=== PATIENT | male | born 1960 | race Hispanic/Latino ===

== ENCOUNTER 2017-02-03 10:28 | Inpatient (IN) | payer OTHER ==
[2017-02-03 10:39] VITALS: BMI 55.2
--- NOTE | 2017-02-03 10:45 | ED PDOC ---
Arrival/HPI - General Chief Complaint: Weakness/Neurological Deficit Time Seen by Provider: 02/03/17 10:32 Past Medical History - Infectious Disease Hx of Infectious Diseases: None - Cardiac Hx Cardiac Disorders: Yes Hx Hypertension: Yes Other/Comment: PE in the past - Pulmonary Hx Respiratory Disorders: Yes Hx Sleep Apnea: Yes - Neurological Hx Neurological Disorder: No - HEENT Hx HEENT Disorder: Yes Other/Comment: glasses - Renal Hx Renal Disorder: No - Endocrine/Metabolic Hx Endocrine Disorders: Yes Hx Diabetes Mellitus Type 1: Yes - Hematological/Oncological Hx Blood Disorders: No - Integumentary Hx Dermatological Disorder: No - Musculoskeletal/Rheumatological Hx Musculoskeletal Disorders: Yes Hx Back Pain: Yes - Gastrointestinal Hx Gastrointestinal Disorders: No - Genitourinary/Gynecological Hx Genitourinary Disorders: No - Psychiatric Hx Psychophysiologic Disorder: No Hx Substance Use: No - Surgical History Other/Comment: Miah OVALLES in 11/2016 - Anesthesia Hx Anesthesia: Yes Hx Anesthesia Reactions: No Family/Social History Smoking Status: Never Smoked Hx Alcohol Use: No Hx Substance Use: No Allergies/Home Meds Allergies/Adverse Reactions: Allergies lisinopril Allergy (Verified 02/03/17 10:39) ANAPHYLAXIS Disposition/Present on Arrival - Present on Arrival History of DVT/PE: Yes History of Uncontrolled Diabetes: No Urinary Catheter: No History of Decub. Ulcer: No History Surgical Site Infection Following: Orthopedic Procedures, None - Disposition
[2017-02-03] MEDS ORDERED: Piperacill/Tazo 4.5gm in NS 4.5 GM/100 ML BAG IVPB STA (10:51)
[2017-02-03] MEDS ORDERED: Vancomycin 1gm in NS 250ml 1 GM/250 ML BAG IVPB STA ×2 (10:51→11:02)
[2017-02-03] MEDS ORDERED: Piperacillin/Tazobact 3.375 gm 100 ML IVPB STA (11:02)
--- NOTE | 2017-02-03 11:26 | RAD ---
HISTORY: Sepsis Patient COMPARISON: No prior. FINDINGS: LUNGS: No active pulmonary disease. PLEURA: No significant pleural effusion identified, no pneumothorax apparent. CARDIOVASCULAR: Normal. OSSEOUS STRUCTURES: No significant abnormalities. VISUALIZED UPPER ABDOMEN: Normal. OTHER FINDINGS: None. IMPRESSION: No active disease.
[2017-02-03 11:44] LABS: BASO # 0.02 K/mm3 (0.0-2.0); BASO % 0.3 % (0.0-3.0); EOS # 0.1 (0.0-0.7); EOS % 1.6 % (1.5-5.0); GRAN # 5.41 (1.4-6.5); GRAN % 72.3 % (50.0-68.0); HEMOGLOBIN 10.7 g/dL (14.0-18.0); LYMPH # 1.4 (1.2-3.4); LYMPH % 18.3 % (22.0-35.0); MEAN CELL VOLUME 83.8 fl (80.0-105.0); MEAN CORPUSCULAR HEMOGLOBIN 27.4 pg (25.0-35.0); MEAN CORPUSCULAR HGB CONC 32.7 g/dl (31.0-37.0); MONO # 0.6 (0.1-0.6); MONO % 7.5 % (1.0-6.0); RBC 3.9 10^6/uL (3.5-6.1); RED CELL DISTRIBUTION WIDTH 13.7 % (11.5-14.5); WHITE BLOOD COUNT 7.5 10^3/ul (4.5-11.0)
[2017-02-03 11:46] LABS: VENOUS BLOOD GAS BASE EXCESS -5.7 mmol/L (0.0-2.0); VENOUS BLOOD GAS PO2 40 mm/Hg (30-55); VENOUS BLOOD PH 7.26 (7.32-7.43)
[2017-02-03] MEDS ORDERED: Morphine 4 mg/ml ISec IVP STA (11:52)
[2017-02-03] MEDS ORDERED: Morphine 4 mg/ml ISec ONE (11:53)
[2017-02-03] MEDS ORDERED: INSULIN ASPART 25 UNIT SQ PRN ×2 (12:00→12:12)
[2017-02-03 12:06] LABS: INR 3.14 (0.93-1.08); PROTHROMBIN TIME 35.3 SECONDS (9.4-12.5)
[2017-02-03 12:07] LABS: ALB/GLOB RATIO 0.8 (1.1-1.8); ALBUMIN 3.1 g/dL (3.0-4.8); CALCIUM 8.9 mg/dL (8.4-10.5); MAGNESIUM 1.8 mg/dL (1.7-2.2); PARTIAL THROMBOPLASTIN TIME 40.7 Seconds (25.1-36.5)
[2017-02-03 12:09] LABS: TROPONIN I 0.02 ng/mL
--- NOTE | 2017-02-03 12:12 | ED PDOC ---
Arrival/HPI - General Chief Complaint: Weakness/Neurological Deficit Time Seen by Provider: 02/03/17 10:32 Historian: Patient - History of Present Illness Narrative History of Present Illness (Text): 02/03/17 13:30 56-year-old male with a history of diabetes or hypertension and obesity with left lower leg BKA presents today with generalized weakness/fatigue and pain and infection to the left BKA stump. Patient states 7 days ago while on a cruise he had slipped and fell and hit the stump on the ground. Patient states he had some pain at that time but 2-3 days later without any trauma this stump burst open and purulent discharge was released. Patient states he was having increased pain swelling and redness to the area. Patient states he was seen by the cruise ship doctor and was started on 4 days of IV antibiotics. Patient is unsure which medications he was being given. Patient states today he got off of the cruise ship and felt very weak as if his legs were going to give out on him. pt denies fever/chills. no cp or sob. no abdominal pain. no n/v. c/o throbbing pain to the left bka site. no other complaints. Past Medical History - Provider Review Nursing Documentation Reviewed: Yes - Travel History Have you recently traveled outside [place] w/in the past 3 mons?: No - Infectious Disease Hx of Infectious Diseases: None - Cardiac Hx Cardiac Disorders: Yes Hx Hypertension: Yes Other/Comment: PE in the past - Pulmonary Hx Respiratory Disorders: Yes Hx Sleep Apnea: Yes - Neurological Hx Neurological Disorder: No - HEENT Hx HEENT Disorder: Yes Other/Comment: glasses - Renal Hx Renal Disorder: No - Endocrine/Metabolic Hx Endocrine Disorders: Yes Hx Diabetes Mellitus Type 1: Yes - Hematological/Oncological Hx Blood Disorders: No - Integumentary Hx Dermatological Disorder: No - Musculoskeletal/Rheumatological Hx Musculoskeletal Disorders: Yes Hx Back Pain: Yes - Gastrointestinal Hx Gastrointestinal Disorders: No - Genitourinary/Gynecological Hx Genitourinary Disorders: No - Psychiatric Hx Psychophysiologic Disorder: No Hx Substance Use: No - Surgical History Other/Comment: Miah OVALLES in 11/2016 - Anesthesia Hx Anesthesia: Yes Hx Anesthesia Reactions: No Family/Social History - Physician Review Nursing Documentation Reviewed: Yes Family/Social History: Unknown Family HX Smoking Status: Never Smoked Hx Alcohol Use: No Hx Substance Use: No Allergies/Home Meds Allergies/Adverse Reactions: Allergies lisinopril Allergy (Verified 02/03/17 10:39) ANAPHYLAXIS Home Medications: Home Meds Medication Instructions Recorded Confirmed Ferrous Gluconate [Fergon] 324 mg PO DAILY 02/03/17 02/03/17 Hydrochlorothiazide [Microzide] 12.5 mg PO BID 02/03/17 02/03/17 Insulin Aspart [Novolog Flexpen] 25 units SQ TID PRN 02/03/17 02/03/17 Insulin Glargine, Recombina 38 units SQ ACHS 02/03/17 02/03/17 [Lantus] Losartan [Cozaar] 100 mg PO DAILY 02/03/17 02/03/17 Metoprolol Succinate [Toprol XL] 25 mg PO DAILY 02/03/17 02/03/17 Omeprazole [Omeprazole] 20 mg PO DAILY 02/03/17 02/03/17 Pravastatin Sodium [Pravastatin 80 g PO DAILY 02/03/17 02/03/17 Sodium] Tamsulosin [Flomax] 1 tab PO DAILY 02/03/17 02/03/17 Venlafaxine [Effexor XR] 175 mg PO DAILY 02/03/17 02/03/17 Warfarin [Coumadin] 15 mg PO DAILY 02/03/17 02/03/17 Review of Systems - Review of Systems Constitutional: Fatigue. absent: Fevers Respiratory: absent: SOB, Cough Cardiovascular: absent: Chest Pain, Palpitations Gastrointestinal: absent: Abdominal Pain, Nausea, Vomiting Musculoskeletal: Arthralgias. absent: Back Pain, Neck Pain Skin: Cellulitis Neurological: absent: Headache, Dizziness Psychiatric: absent: Anxiety, Depression Physical Exam Vital Signs Reviewed: Yes Vital Signs Temp Pulse Resp BP Pulse Ox 02/03/17 12:28 61 18 145/69 97 02/03/17 11:29 64 18 147/65 95 02/03/17 10:28 97.9 F 72 18 149/70 96 Temperature: Afebrile Blood Pressure: Normal Pulse: Regular Respiratory Rate: Normal Appearance: Positive for: Well-Appearing, Non-Toxic, Comfortable Pain Distress: None Mental Status: Positive for: Alert and Oriented X 3 Finger Stick Blood Glucose: 220 - Systems Exam Head: Present: Atraumatic Neck: Present: Normal Range of Motion Respiratory/Chest: Present: Clear to Auscultation Cardiovascular: Present: Regular Rate and Rhythm Abdomen: No: Tenderness, Distention, Rebound, Guarding Back: Present: Normal Inspection Lower Extremity: Present: Swelling, Erythema (Left leg; + edema, BKA with erythema, warmth, swelling and two open wounds with discharge noted; + tenderness. right leg; + edema. ) Neurological: Present: GCS=15, Speech Normal Skin: Present: Warm, Dry, Normal Color Psychiatric: Present: Alert, Oriented x 3 Medical Decision Making ED Course and Treatment: 02/03/17 13:43 56-year-old male with a left leg BKA on 10/13/16. Now with wound infection. Complaining of generalized fatigue CBC within normal limits CMP BUN 72 creatinine 3.0 Chest x-ray within normal limits X-rays of the left knee: + bka; lactate; 1.9 trop; 0.02 ekg; normal sinus rhythm at [address] elevations QTC 430 vancomycin and zosyn ordered IV. case discussed with dr. tarango; accepts admission. with dr. chavez and Dr. Brownlee consult. pt was seen and evaluated by dr. chavez at beside; he would like left knee xray to evaluate stump. pt was seen by dr. brownlee at bedside. all results discussed with patient and family in depth. pt with DM, with left leg BKA infection with cellulitis. w impression; cellulitis, wound infection, renal insufficiency admit to med/surg - Lab Interpretations Lab Results: 02/03/17 11:15 02/03/17 11:15 Lab Results 02/03/17 11:15: Sodium 137, Chloride 106, Potassium 4.7, Carbon Dioxide 23, Anion Gap 14, BUN 74 H, Creatinine 3.0 H, Est GFR ( Amer) 26, Est GFR ( Non-Af Amer) 22, Random Glucose 207 H, Calcium 8.9, Phosphorus 4.4, Magnesium 1.8, Total Bilirubin 0.4, AST 35, ALT 39, Alkaline Phosphatase 248 H, Lactate Dehydrogenase 628, Total Creatine Kinase 89, Troponin I 0.02, Total Protein 7.2 , Albumin 3.1, Globulin 4.1, Albumin/Globulin Ratio 0.8 L 02/03/17 11:15: pO2 40, VBG pH 7.26 L, VBG pCO2 48.0, VBG HCO3 21.5, VBG Total CO2 23.0, VBG O2 Sat (Calc) 71.0 H, VBG Base Excess -5.7 L, VBG Potassium 4.8, Sodium 136.0, Chloride 107.0, Glucose 216 H, Lactate 1.9, FiO2 21.0, Venous Blood Potassium 4.8 02/03/17 11:15: PT 35.3 H, INR 3.14 H, APTT 40.7 H 02/03/17 11:15: WBC 7.5, RBC 3.90, Hgb 10.7 L, Hct 32.7 L, MCV 83.8, MCH 27.4, MCHC 32.7, RDW 13.7, Plt Count 242, MPV 9.0, Gran % 72.3 H, Lymph % (Auto) 18.3 L, [place] % (Auto) 7.5 H, Eos % (Auto) 1.6, Baso % (Auto) 0.3, Gran # 5.41, Lymph # 1.4, [place] # 0.6, Eos # 0.1, Baso # 0.02 - RAD Interpretation Radiology Orders: 02/03/17 10:52 CHEST PORTABLE [RAD] Stat 02/03/17 11:55 KNEE LEFT 2 VIEWS (AP & LAT) [RAD] Stat 02/03/17 12:05 EXTREMITY NON VASCULAR LT [US] Urgent - Medication Orders Current Medication Orders: Atorvastatin Calcium (Lipitor) 40 mg PO HS [place] Hydrochlorothiazide (Microzide) 12.5 mg PO BID [place] Hydromorphone HCl (Dilaudid) 1 mg IVP Q4H PRN PRN Reason: Pain, severe (8-10) Insulin Detemir (Levemir) 19 unit SC AMHS [place] Losartan Potassium (Cozaar) 100 mg PO DAILY [place] Metoprolol Succinate (Toprol Xl) 25 mg PO DAILY [place] Non-Formulary Medication (Insulin Aspart [Novolog Flexpen]) 25 units SQ TID PRN PRN Reason: sliding scale Pantoprazole Sodium (Protonix Ec Tab) 40 mg PO DAILY [place] Tamsulosin HCl (Flomax) 1 mg PO DAILY [place] Venlafaxine HCl (Effexor Xr) 150 mg PO DAILY [place] Warfarin Sodium (Coumadin) 15 mg PO DAILY [place] PRN Reason: Protocol Discontinued Medications Vancomycin HCl (Vancomycin 1gm) 1 gm in 250 mls @ 167 mls/hr IVPB STAT STA PRN Reason: Protocol Stop: 02/03/17 12:31 Piperacillin Sod/Tazobactam Sod (Zosyn 3.375 In Ns 100ml) 100 mls @ 200 mls/hr IVPB STAT STA PRN Reason: Protocol Stop: 02/03/17 11:31 Last Admin: 02/03/17 12:01 Dose: 200 mls/hr eMAR Start Stop Document 02/03/17 12:01 MR (Rec: 02/03/17 12:02 [place] [facility] [id number] Intravenous Solution Start Date 02/03/17 Start Time 11:58 End Date 02/03/17 End time 12:28 Total Infusion Time 30 Sodium Chloride (Sodium Chloride 0.9%) 1,000 mls @ 999 mls/hr IV .Q1H1M STA Stop: 02/03/17 13:13 Last Admin: 02/03/17 12:31 Dose: 999 mls/hr eMAR Start Stop Document 02/03/17 12:31 MR (Rec: 02/03/17 12:31 MR [facility] [id number][place] Intravenous Solution Start Date 02/03/17 Start Time 12:31 End Date 02/03/17 End time 13:31 Total Infusion Time 60 Morphine Sulfate (Morphine) 4 mg IVP STAT STA Stop: 02/03/17 11:53 Last Admin: 02/03/17 12:07 Dose: 4 mg MAR Pain Assessment Document 02/03/17 12:07 MR (Rec: 02/03/17 12:07 MR [facility] [id number][place] Pain Reassessment Is this a pain reassessment? Yes Sleep Is patient sleeping during reassessment? No Presence of Pain Presence of Pain Yes Pain Scale Used Pain Scale Used Numeric Location Left, Right or Bilateral Left Pain Location Body Site Leg Description Description Throbbing Intensity of Pain at present 8 Alleviating Factors/Management Medication Techniques Alleviating Factors Medication IVP Administration Document 02/03/17 12:07 MR (Rec: 02/03/17 12:07 [id number]) Charges for Administration # of IVP Administrations 1 Non-Formulary Medication (Insulin Glargine, Recombina [Lantus]) 38 units SQ ACHS [place] Non-Formulary Medication (Pravastatin Sodium [Pravastatin Sodium]) 80 g PO DAILY [place] Non-Formulary Medication (Venlafaxine [Effexor Xr]) 175 mg PO DAILY [place] Disposition/Present on Arrival - Present on Arrival Any Indicators Present on Arrival: Yes History of DVT/PE: Yes History of Uncontrolled Diabetes: No Urinary Catheter: No History of Decub. Ulcer: No History Surgical Site Infection Following: Orthopedic Procedures, None - Disposition Have Diagnosis and Disposition been Completed?: Yes Diagnosis: Cellulitis, leg, Infected wound, Generalized weakness Disposition: HOSPITALIZED Disposition Time: 12:05 Patient Plan: Admission Patient Problems: Current Active Problems Problem Status Onset Cellulitis, leg Acute Generalized weakness Acute Infected wound Acute Condition: FAIR Discharge Instructions (ExitCare): Cellulitis (ED), Weakness (ED) Referrals: [facility] Alexandra Noyola, [Primary Care Provider] - Follow up with primary Forms: [employer] (Bengali)
[2017-02-03] MEDS ORDERED: Sodium Chloride 0.9% 1,000 ML IV STA (12:13)
--- NOTE | 2017-02-03 12:40 | CP.PCM.CON ---
History of Present Illness - History of Present Illness History of Present Illness: Surgery Consult Note for Dr. Santiago Pt is a 56 yo male with PMH of DM, HTN, HLD, peripheral neuropathy, and PE presents to ED for draining, swollen, and possibly infected BKA stump of the LLE. Pt had BKA of the LLE on 10/13/16 due to a non-healing ulcer with an unremarkable hospital course and rehab stint afterwards. Pt returned from a cruise today. Seven days ago, while on the cruise, patients states that he was going to the restroom, when he slipped and slammed his LLE stump onto the ground. At that time, he states that there was pain and some bruising, but no open wound. However, 2-3 days after, while transferring in bed, pt states that there were 2 spots that burst without direct trauma at that time. Patient stated that pain, swelling and drainage worsened daily during cruise. The patient was seen by the physician on the cruise ship who gave him antibiotics and dressed the wound. Today, upon returning from the cruise patient had planned to see his surgeon in [place], but felt very fatigued along with increased throbbing pain and swelling in the stump that he decided [place] [facility] Pt states that pain is currently controlled, but leg is still swollen and continues to drain. Pt denies CP, SOB, nausea, vomiting, diarrhea, constipation, abdominal pain, fever, chills, CORMIER or fatigue. PMH: DM, HTN, HLD, peripheral neuropathy, PE PSH: Uvulaplasty, shoulder decompression, LLE BKA All: Lisinopril SH: Social EtOH use, denied tobacco and illicit drug use FHx: Non-contributory Review of Systems - Review of Systems Review of Systems: 12 point ROS reviewed and is negative other than what is stated in HPI. Past Patient History - Infectious Disease Hx of Infectious Diseases: None - Past Social History Smoking Status: Never Smoked - CARDIAC Hx Cardiac Disorders: Yes Hx Hypertension: Yes Other/Comment: PE in the past - PULMONARY Hx Respiratory Disorders: Yes Hx Sleep Apnea: Yes - NEUROLOGICAL Hx Neurological Disorder: No - HEENT Hx HEENT Problems: Yes Other/Comment: glasses - RENAL Hx Chronic Kidney Disease: No - ENDOCRINE/METABOLIC Hx Endocrine Disorders: Yes Hx Diabetes Mellitus Type 1: Yes - HEMATOLOGICAL/ONCOLOGICAL Hx Blood Disorders: No - INTEGUMENTARY Hx Dermatological Problems: No - MUSCULOSKELETAL/RHEUMATOLOGICAL Hx Musculoskeletal Disorders: Yes Hx Back Pain: Yes - GASTROINTESTINAL Hx Gastrointestinal Disorders: No - GENITOURINARY/GYNECOLOGICAL Hx Genitourinary Disorders: No - PSYCHIATRIC Hx Psychophysiologic Disorder: No Hx Substance Use: No - SURGICAL HISTORY Other/Comment: Miah OVALLES in 11/2016 - ANESTHESIA Hx Anesthesia: Yes Hx Anesthesia Reactions: No Meds Allergies/Adverse Reactions: Allergies Allergy/AdvReac Type Severity Reaction Status Date / Time lisinopril Allergy ANAPHYLAXIS Verified 02/03/17 10:39 - Medications Medications: Current Medications Atorvastatin Calcium (Lipitor) 40 mg PO HS [place] Hydrochlorothiazide (Microzide) 12.5 mg PO BID [place] Hydromorphone HCl (Dilaudid) 1 mg IVP Q4H PRN PRN Reason: Pain, severe (8-10) Vancomycin HCl (Vancomycin 1gm) 1 gm in 250 mls @ 167 mls/hr IVPB STAT STA PRN Reason: Protocol Stop: 02/03/17 12:31 Sodium Chloride (Sodium Chloride 0.9%) 1,000 mls @ 999 mls/hr IV .Q1H1M STA Stop: 02/03/17 13:13 Insulin Detemir (Levemir) 19 unit SC AMHS [place] Losartan Potassium (Cozaar) 100 mg PO DAILY [place] Metoprolol Succinate (Toprol Xl) 25 mg PO DAILY [place] Non-Formulary Medication (Insulin Aspart [Novolog Flexpen]) 25 units SQ TID PRN PRN Reason: sliding scale Pantoprazole Sodium (Protonix Ec Tab) 40 mg PO DAILY [place] Tamsulosin HCl (Flomax) 1 mg PO DAILY [place] Venlafaxine HCl (Effexor Xr) 150 mg PO DAILY [place] Warfarin Sodium (Coumadin) 15 mg PO DAILY [place] PRN Reason: Protocol Physical Exam - Constitutional Appears: No Acute Distress Additional comments: morbidly obese - Head Exam Head Exam: NORMAL INSPECTION - Eye Exam Eye Exam: Normal appearance - ENT Exam ENT Exam: Normal Exam - Neck Exam Neck exam: Positive for: Normal Inspection - Respiratory Exam Respiratory Exam: NORMAL BREATHING PATTERN. absent: Accessory Muscle Use, Respiratory Distress - Cardiovascular Exam Cardiovascular Exam: RRR. absent: Gallop, Rubs, Systolic Murmur - GI/Abdominal Exam GI & Abdominal Exam: Soft. absent: Distended, Guarding, Organomegaly, Rebound, Tenderness - Extremities Exam Additional comments: LLE stump swollen, erythematous. Two 1 cm open wounds on distal end of stump draining sanguineous/purulent fluid. - Neurological Exam Neurological exam: Alert, Oriented x3 - Skin Skin Exam: Normal Color Results - Vital Signs Recent Vital Signs: Last Vital Signs Temp 97.9 F 02/03/17 10:28 Pulse 61 02/03/17 12:28 Resp 18 02/03/17 12:28 BP 145/69 02/03/17 12:28 Pulse Ox 97 02/03/17 12:28 - Labs Result Diagrams: 02/03/17 11:15 02/03/17 11:15 Labs: Laboratory Results - last 24 hr 02/03/17 02/03/17 02/03/17 11:15 11:15 11:15 WBC 7.5 RBC 3.90 Hgb 10.7 L Hct 32.7 L MCV 83.8 MCH 27.4 MCHC 32.7 RDW 13.7 Plt Count 242 MPV 9.0 Gran % 72.3 H Lymph % (Auto) 18.3 L [place] % (Auto) 7.5 H Eos % (Auto) 1.6 Baso % (Auto) 0.3 Gran # 5.41 Lymph # 1.4 [place] # 0.6 Eos # 0.1 Baso # 0.02 PT 35.3 H INR 3.14 H APTT 40.7 H pO2 40 VBG pH 7.26 L VBG pCO2 48.0 VBG HCO3 21.5 VBG Total CO2 23.0 VBG O2 Sat (Calc) 71.0 H VBG Base Excess -5.7 L VBG Potassium 4.8 Sodium 136.0 Chloride 107.0 Glucose 216 H Lactate 1.9 FiO2 21.0 Potassium Carbon Dioxide Anion Gap BUN Creatinine Est GFR ( Amer) Est GFR (Non-Af Amer) Random Glucose Calcium Phosphorus Magnesium Total Bilirubin AST ALT Alkaline Phosphatase Lactate Dehydrogenase Total Creatine Kinase Troponin I Total Protein Albumin Globulin Albumin/Globulin Ratio Venous Blood Potassium 4.8 02/03/17 11:15 WBC RBC Hgb Hct MCV MCH MCHC RDW Plt Count MPV Gran % Lymph % (Auto) [place] % (Auto) Eos % (Auto) Baso % (Auto) Gran # Lymph # [place] # Eos # Baso # PT INR APTT pO2 VBG pH VBG pCO2 VBG HCO3 VBG Total CO2 VBG O2 Sat (Calc) VBG Base Excess VBG Potassium Sodium 137 Chloride 106 Glucose Lactate FiO2 Potassium 4.7 Carbon Dioxide 23 Anion Gap 14 BUN 74 H Creatinine 3.0 H Est GFR ( Amer) 26 Est GFR (Non-Af Amer) 22 Random Glucose 207 H Calcium 8.9 Phosphorus 4.4 Magnesium 1.8 Total Bilirubin 0.4 AST 35 ALT 39 Alkaline Phosphatase 248 H Lactate Dehydrogenase 628 Total Creatine Kinase 89 Troponin I 0.02 Total Protein 7.2 Albumin 3.1 Globulin 4.1 Albumin/Globulin Ratio 0.8 L Venous Blood Potassium Assessment & Plan - Assessment and Plan (Free Text) Assessment: 56 yo M presents with LLE BKA stump trauma and possible infection. Plan: - IV abx - F/u wound culture - LLE US and X-ray - Will need wound debridement - Medical management per primary - F/u with operating surgeon upon discharge - ANA MARIA Herring, PGY1
--- NOTE | 2017-02-03 13:29 | US ---
PROCEDURE: Limited ultrasound of the lower extremity HISTORY: Pain and redness in the amputation stump COMPARISON: None TECHNIQUE: Targeted high-resolution ultrasound of the amputation stump was performed with real-time linear scanner. FINDINGS: There is diffuse subcutaneous edema and fluid in the soft tissues without abscess or drainable fluid collection. IMPRESSION: Diffuse subcutaneous edema and fluid in the soft tissues of the amputation stump without evidence of abscess or drainable collection. Findings may represent cellulitis in the appropriate clinical setting.
--- NOTE | 2017-02-03 14:08 | RAD ---
PROCEDURE: Left Knee Radiographs. HISTORY: Pain. COMPARISON: None. FINDINGS: BONES: Normal. No fracture. There has been a below-knee amputation. There are no acute findings. No evidence of osteomyelitis JOINTS: Normal. No osteoarthritis. JOINT EFFUSION: None. OTHER FINDINGS: None. IMPRESSION: No evidence of osteomyelitis
--- NOTE | 2017-02-03 14:47 | HP ---
HISTORY OF PRESENT ILLNESS: I was called down to the emergency room to see this young man. He is resting on a gurney. His gown is up a little bit. He has a left BKA, which has got a very bloody stump, which was cut and braced. He is a 56-year-old man [place]. He told me he landed on the stump about 5-7 days ago. It was okay, it did not open up and then over the past 3-4 days, it started opening up and now it has got ulcers and wounds and it is bloody, almost looks infected and he came off the boat to our hospital. PAST MEDICAL HISTORY: Diabetes, hypertension, depression, BPH, CHF, GERD, and high cholesterol. PAST SURGICAL HISTORY: He has surgeries as left BKA. ALLERGIES: LISINOPRIL. FAMILY HISTORY: There is diabetes and hypertension in the family. MEDICATIONS: He is on iron for anemia, warfarin I believe for AFib, losartan, venlafaxine, tamsulosin, Lantus, Microzide, NovoLog, omeprazole, pravastatin, and Toprol. REVIEW OF SYSTEMS: He is having left stump pain and bleeding and a wound. No acute vision or hearing loss. No sore throat. No neck pain. No chest pain, no shortness of breath. No palpitations. No coughing or wheezing. No abdominal pain. No nausea, vomiting, constipation or diarrhea. PHYSICAL EXAMINATION: EXTREMITIES: He has got a left stump. His wounds were bleeding and he has very swollen legs. LABORATORY DATA: So far, he has white count of 7.5, hemoglobin of 10.7, hematocrit of 32.7, and platelets of 242. Lactate is 1.9. He has 4.8 venous blood test for potassium. I am waiting for more labs to come back. I called in Dr. Santiago of Surgery for possible I and D of the left stump wound and Infectious Disease for possible antibiotics. He is on Zosyn and vancomycin through the ER. He had doses of them already. I will put him back on his medications. We are going to check his labs tomorrow and we have to see what we can do about repairing the stump. He is also morbidly obese. of CHF. I consulted Dr. Santiago, Dr. Brownlee, and I will consult Dr. Vora for his edema. We will follow. Check his labs tomorrow. Pedrito Tee DO MTDNaveen
[2017-02-03] MEDS ORDERED: INSULIN GLARGINE RECOMBINA SQ SCH (16:30)
[2017-02-03] MEDS: HYDROmorphone 1 mg/ml ISec IVP PRN (18:48)
--- NOTE | 2017-02-03 18:51 | CARD ---
APPROVED REPORT EKG Measurement Heart [id number] <Conclusion> Normal sinus rhythm Normal ECG
[2017-02-03] MEDS ORDERED: Pneumococcal 23-Valent Vaccine IM ONE (20:45)
[2017-02-03] MEDS ORDERED: Influenza Vaccine 60 mcg/0.5 mL SYR (4YR UP) IM ONE (20:45)
[2017-02-03] MEDS: Insulin Detemir 100 units/ml Vial (Levemir) SC SCH (22:02)
--- NOTE | 2017-02-04 01:28 | CON ---
DATE: 02/03/2017 CARDIOLOGY CONSULTATION HISTORY: The patient is a 56-year-old male who is from [place], who [place] after trauma to his left lower extremity stump, which resulted in open as well as a purulent discharge. The patient's past medical history includes a long history of bilateral pedal edema which was explained as lymphedema. The patient suffers from hypertension, hyperlipidemia, as well as diabetes mellitus. No previous cardiac history is noted. There was no previous cardiac investigation noted. The patient is currently on anticoagulation for history of thrombosis. SOCIAL HISTORY: The patient denies smoking. REVIEW OF SYSTEMS: 14-point review of systems was reviewed in detail. He has chronic edema in his lower extremities, negative angina, negative dyspnea, although his activity is minimal. No previous myocardial infarction. No recent cardiac history. PHYSICAL EXAMINATION: VITAL SIGNS: Blood pressure is 142/65. The heart rate is in the 60s. NECK: Negative JVD. LUNGS: Decreased breath sounds bilaterally. HEART: Reveal S1, S2. EXTREMITIES: Marked edema in both lower extremities with a stump on the left lower extremity. EKG shows no acute changes. LABORATORIES: BUN and creatinine is 74 and 3.0. Hemoglobin is 10 with a white count of 7.5. IMPRESSION: 1. Cellulitis of the left stump with possible abscess. 2. Peripheral vascular disease. 3. Diabetes mellitus. 4. Hypertension. 5. Hypercholesterolemia. 6. Morbid obesity. 7. Anemia. PLAN: Given these findings, we will obtain an echocardiogram to better understand his LV function as well as to rule out pulmonary hypertension. Samir Vora MD
--- NOTE | 2017-02-04 01:38 | CON ---
DATE: 02/03/2017 LOCATION: The patient is seen in 1, bed 2. CHIEF COMPLAINT: Left stump infection times several days. HISTORY OF PRESENT ILLNESS: This is a 56-year-old male with morbid obesity with a BMI of 65 with diabetes mellitus, renal disease, hypertension, history of left below knee amputation, admitted with weakness, fatigue, erythema of the left stump site. The patient was in a [place] ship, he states that he fell. No nausea or vomiting. No chest pain or shortness of breath. PAST MEDICAL HISTORY: Significant for diabetes mellitus, hypertension, coronary artery disease, chronic back pain, the patient has morbid obesity, BMI of 65, pulmonary emboli, and renal disease. PAST SURGICAL HISTORY: Significant for left below knee amputation in 11/2016. ALLERGIES: THE PATIENT HAS NO KNOWN ALLERGIES TO ANY ANTIBIOTICS. HE IS ALLERGIC TO LISINOPRIL. MEDICATIONS: At home include; Coumadin, Effexor, Flomax, omeprazole and hydrochlorothiazide. PHYSICAL EXAMINATION VITAL SIGNS: He is in bed with a temperature of 97, pulse of 72, blood pressure is 140/70, respiratory rate of 18. HEENT: Unremarkable. NECK: Supple. LUNGS: Decreased breath sounds bilaterally. HEART: Normal S1 and S2. ABDOMEN: Soft, nontender. EXTREMITIES: Examination of left stump reveals the patient has severe erythema and extending 10 to 12 cm around the stump and there is discharge and edema, significantly angry-appearing stump. LABORATORY DATA: Reveals a white count of 7.5, hemoglobin of 10, platelets of 242, coagulation is noted. Chemistries reveals a BUN of 74, creatinine of 3.0. No previous creatinine is available since this patient is [place]. He is originally from [place] and never been hospitalized in [employer]. ASSESSMENT: This is a 56-year-old male with morbid obesity, BMI of 55, diabetes, renal disease, hypertension, coronary artery disease, pulmonary emboli, chronic back pain, history of left below knee amputation, now presenting with a severe left stump cellulitis with renal failure. We will start the patient on Teflaro to covers of MRSA coverage since the patient has renal failure, unable to give vancomycin since the patient is on venlafaxine, unable to use Zyvox with reduced dose of 300 mg. We must rule out underlying osteomyelitis. We will order a sed rate. Should have vascular workup with Dopplers, arterial and venous and imaging. We will follow closely with you. Kobe Brownlee MD
[2017-02-04 07:06] LABS: HEMOGLOBIN 10.4 g/dL (14.0-18.0); MEAN CELL VOLUME 84.4 fl (80.0-105.0); MEAN CORPUSCULAR HEMOGLOBIN 27.1 pg (25.0-35.0); MEAN CORPUSCULAR HGB CONC 32.1 g/dl (31.0-37.0); MEAN PLATELET VOLUME 8.9 fl (7.0-11.0); RBC 3.84 10^6/uL (3.5-6.1); RED CELL DISTRIBUTION WIDTH 14.2 % (11.5-14.5)
[2017-02-04 07:28] LABS: PROTHROMBIN TIME 41.6 SECONDS (9.4-12.5)
[2017-02-04 07:29] LABS: INR 3.68 (0.93-1.08)
[2017-02-04 08:00] LABS: ALB/GLOB RATIO 0.8 (1.1-1.8); ALBUMIN 2.9 g/dL (3.0-4.8); CALCIUM 8.5 mg/dL (8.4-10.5)
[2017-02-04] MEDS ORDERED: Lidocaine 1% Inj (20ml) IJ STA (08:20)
[2017-02-04] MEDS ORDERED: Sodium Chloride 0.9% 1,000 ML IV SCH (08:30)
--- NOTE | 2017-02-04 09:45 | CP.PCM.PN ---
Subjective - Date & Time of Evaluation Date of Evaluation: 02/04/17 Time of Evaluation: 09:42 - Subjective Subjective: Surgery Progress Note for Dr. Santiago Pt seen and examined at bedside. Pt states that LLE stump is TTP, but swelling is decreased with DEBORAH bandage. Pt denied CP, SOB, nausea, vomiting, diarrhea, abdominal pain, fever, chills, CORMIER, or dizziness. Objective - Vital Signs/Intake and Output Vital Signs (last 24 hours): Temp Pulse Resp BP Pulse Ox 98.7 F 75 20 148/78 96 02/04/17 08:00 02/04/17 08:00 02/04/17 08:00 02/04/17 08:00 02/04/17 08:00 Intake and Output: 02/04/17 02/04/17 06:59 18:59 Intake Total 600 Output Total 0 Balance 600 - Medications Medications: Current Medications Atorvastatin Calcium (Lipitor) 40 mg PO HS [facility] Last Admin: 02/03/17 22:02 Dose: 40 mg Hydrochlorothiazide (Microzide) 12.5 mg PO BID [facility] Last Admin: 02/03/17 18:30 Dose: 12.5 mg Hydromorphone HCl (Dilaudid) 1 mg IVP Q4H PRN PRN Reason: Pain, severe (8-10) Last Admin: 02/03/17 18:48 Dose: 1 mg Sodium Chloride (Sodium Chloride 0.9%) 1,000 mls @ 125 mls/hr IV .Q8H [facility] Insulin Detemir (Levemir) 19 unit SC AMHS [facility] Last Admin: 02/03/17 22:02 Dose: 19 unit Losartan Potassium (Cozaar) 100 mg PO DAILY [facility] Metoprolol Succinate (Toprol Xl) 25 mg PO DAILY [facility] Non-Formulary Medication (Insulin Aspart [Novolog Flexpen]) 25 units SQ TID PRN PRN Reason: sliding scale Pantoprazole Sodium (Protonix Ec Tab) 40 mg PO DAILY [facility] Tamsulosin HCl (Flomax) 1 mg PO DAILY [facility] Venlafaxine HCl (Effexor Xr) 150 mg PO DAILY [facility] Warfarin Sodium (Coumadin) 15 mg PO DAILY [facility] PRN Reason: Protocol - Labs Labs: 02/04/17 06:30 02/04/17 06:30 PT 41.6 SECONDS (9.4-12.5) H 02/04/17 06:30 INR 3.68 (0.93-1.08) H* 02/04/17 06:30 APTT 40.7 Seconds (25.1-36.5) H 02/03/17 11:15 - Constitutional Appears: No Acute Distress - Head Exam Head Exam: NORMAL INSPECTION - Eye Exam Eye Exam: Normal appearance - ENT Exam ENT Exam: Normal Exam - Respiratory Exam Respiratory Exam: NORMAL BREATHING PATTERN. absent: Accessory Muscle Use, Respiratory Distress - Cardiovascular Exam Cardiovascular Exam: RRR. absent: Gallop, Rubs, Murmur - GI/Abdominal Exam GI & Abdominal Exam: Soft. absent: Distended, Guarding, Tenderness, Rebound - Extremities Exam Additional comments: LLE decreased edema with DEBORAH wrapping. 2 open lesions on distal end of stump draining SS discharge. erythema, TTP. - Neurological Exam Neurological Exam: Alert, Awake, Oriented x3 Assessment and Plan - Assessment and Plan (Free Text) Assessment: 56 yo M presents with LLE BKA stump trauma and infection. Plan: - IV abx per ID - F/u wound culture - Plan for I&D in OR on Tuesday - INR elevated, coumadin stopped, cont to monitor - Medical management per primary - DW Dr. Jack Herring, PGY1
[2017-02-04] MEDS ORDERED: Sod Polystyrene Sulf 15 gm/60 ml Susp PO ONE (09:53)
[2017-02-04] MEDS ORDERED: PRAVASTATIN SODIUM PO SCH (10:00)
[2017-02-04] MEDS ORDERED: VENLAFAXINE PO SCH (10:00)
[2017-02-04] MEDS: HYDROmorphone 1 mg/ml ISec IVP PRN ×2 (11:17→18:47)
[2017-02-04] MEDS: Metoprolol Succinate 25 mg XL Tab PO SCH (11:19)
[2017-02-04] MEDS: Pantoprazole 40 mg EC Tab PO SCH (11:24)
[2017-02-04] MEDS: Enoxaparin 30 mg Syringe SC SCH (11:25)
[2017-02-04] MEDS: Insulin Detemir 100 units/ml Vial (Levemir) SC SCH ×2 (11:27→22:22)
[2017-02-04] MEDS: Venlafaxine 75 mg ER Cap PO SCH (11:37)
[2017-02-04] MEDS ORDERED: DAPTOmycin 500 mg Inj (Cubicin) IV STA (12:30)
[2017-02-04] MEDS ORDERED: SODIUM CHLORIDE 0.9% IV SCH (12:45)
[2017-02-04] MEDS ORDERED: DAPTOMYCIN IV SCH (12:45)
--- NOTE | 2017-02-04 13:24 | PN ---
DATE: SUBJECTIVE: I saw Joel resting in bed. His left stump is bandaged, it was wounded and bloody and opened. He also is on IV antibiotics. He is comfortable, not much pain. He is eating, but his left stump is uncomfortable. He is on IV fluids. He is on Cozaar, Dilaudid, Effexor, Flomax, FlexPen. He was given Kayexalate for an elevated potassium, Levemir, Lipitor, he is on Lovenox now and I held the Coumadin because his INR was above 3, Microzide, Protonix, Toprol. He was on vanco and Zosyn waiting for ID to put him on antibiotics. PHYSICAL EXAMINATION: VITAL SIGNS: He has a 98.7 temperature, 75 pulse, 148/70 blood pressure, 20 respiratory rate, 96% O2 sat on room air. HEENT: Head is atraumatic and normocephalic. HEART: Regular rate. LUNGS: Decreased breath sounds, but clear. ABDOMEN: Soft. Morbidly obese. EXTREMITIES: He has got left BKA with the wound and he has got+4 pitting edema. LABORATORY DATA: He has a 137 sodium, potassium 5.4, we gave him some Kayexalate. BUN is 83 and creatinine is 3.8, he is on a renal failure. I did call in Renal and changed his IV fluids around. His last blood sugar was 179, calcium is 8.5, total bilirubin is 0.5, AST is 33, ALT is 31 and alkaline phosphatase 205, total protein 6.8. His INR went to 3.68. We held the Coumadin and put him on Lovenox to cover him. White count 6, hemoglobin 10.4, hematocrit 32.4, and platelet count is 231. ASSESSMENT AND PLAN: He was seen by Surgery and Infectious Disease. We will call in Renal. He has got a bunch of things going on. He has got left below-knee amputation stump wound possibly infected and rule out osteo, obese. He has got acute renal failure and chronic diseases. We will check an x-ray. Lani Tee DO [facility] # [id number]
[2017-02-04 13:27] LABS: IRON 33 ug/dL (45-180)
[2017-02-04 13:37] LABS: TOTAL IRON BINDING CAPACITY 223 ug/dL (261-462)
[2017-02-04 13:48] LABS: % IRON SATURATION 15 % (20-55)
--- NOTE | 2017-02-04 13:50 | PN ---
DATE: 02/04/2017 CARDIOLOGY FOLLOWUP NOTE SUBJECTIVE: The patient's edema in the lower extremities has improved. OBJECTIVE: VITAL SIGNS: Blood pressure is 148/70 and heart rate is in the 70s. NECK: Negative JVD. LUNGS: Without rales. HEART: S1 and S2. EXTREMITIES: Persistent edema in the lower extremities with status post amputation in the left lower extremity. LABORATORY DATA: Hemoglobin is 10.4. Chemistries, BUN and creatinine are 83 and 3.8, glucose is 220. IMPRESSION: 1. Cellulitis. 2. Possible abscess in the stump. 3. Peripheral vascular disease. 4. Chronic pedal edema. 5. Hypertension. 6. Diabetes mellitus. 7. Morbid obesity. PLAN: Given these findings, awaiting for echocardiogram to evaluate his pulmonary pressures as well as LV function. Samir Vora MD
--- NOTE | 2017-02-04 14:15 | US ---
PROCEDURE: Ultrasound of the Kidneys HISTORY: KIA COMPARISON: None available. TECHNIQUE: Sonogram of the kidneys. FINDINGS: RIGHT KIDNEY: Measures: cm. Normal in size, contour and echogenicity. No stone, solid mass lesion or hydronephrosis visualized. LEFT KIDNEY: Measures: cm. Normal in size, contour and echogenicity. No stone, solid mass lesion or hydronephrosis visualized. OTHER FINDINGS: None. IMPRESSION: Unremarkable renal sonogram.
--- NOTE | 2017-02-04 15:16 | CP.PCM.CON ---
History of Present Illness - History of Present Illness History of Present Illness: Initial Nephrology Consultation: Assessment: Stable Acute Kidney Injury (N17.9) unclear etiology. possible AIN considering recent antibiotics, current rash. r/o urine retention due to BPH/autonomic bladder Diabetic chronic Kidney Disease (E11.22) Hypertensive Chronic Kidney Disease (I12.9) Anemia (D64.9), HTN (I12.9) Hyperkalemia diabetes Mellitus with retinopathy, hypertension, morbid obesity, hx of PE on coumadin, left leg wound s/p BKA in sep 2016 now with fall Plan No acute need for renal replacement therapy at this time. may need soon if no spontaneous recovery Hypertension control with meds as ordered. hold ACEI/ARB due to KIA. also d/c HCTZ. start norvasc agree with kayexylate lora catheter insertion continue with flomax Monitor Input/Output, daily weights and renal function with basic metabolic panel Check urine analysis, spot protein/creatinine and albumin/creatinine ratio, renal sonogram. Urine for eosinophils. Check for 25-OH vitamin D, iPTH, TSAT/Ferritin Check serum protein electrophoresis with immunofixation, kappa/lambda ratio Dose meds/antibiotics for reduced GFR. Avoid fleets enema/magnesium based laxatives. Avoid nephrotoxins/NSAIDs/ iodinated contrast (unless needed emergently) Glycemic control Further work up/management as per primary team Thanks for allowing me to participate in care of your patient. Will follow patient with you. Please call if any Qs. d/w primary team Dr Gomez [place] Office: [phone] Chief Complaint; fall on left leg stump HPI: Pt is a 56 M with hx of diabetes Mellitus (35 years) with retinopathy, hypertension (30 years), morbid obesity, hx of PE on coumadin, left leg wound s/ p BKA in sep 2016 @ [facility], who was in a cruise presented with complaints of fall on left BKA stump and bleeding thereafter. he was also given IV antibiotics in cruise ? name of antibiotics. Denies chest pain, palpitation, shortness of breath, leg swelling Denies blood or bubbles in urine but says hasn't made urine since yesterday. says he had similiar issues in [place] but received IVF, lora and flomax, eventually better. reports rash over arms since yesterday. Denies OTC/herbal meds or NSAIDs No recent iodinated contrast exposure. No obvious episodes of low BP. ROS: Constitutional Symptoms: Denies fever. No chills. No Recent Weight Changes Eyes: denies change in vision, denies watery eyes, denies double vision Ears/Nose/Mouth/Throat: Denies Abnormal Taste. No Bad breath no Bad Taste. Cardiovascular: No chest pain. No palpitations. Pulmonary: No shortness of breath no cough. Gastrointestinal: denies abdominal pain No nausea. No vomiting. Denies change in bowel habits. Denies Bleeding Genitourinary: No urine since came here Neurological: Denies headaches. No dizziness. c/o loss of balance. Denies weakness, denies tingling/numbness Dermatological: No Rash or Bruising or ulcers. Psychiatric: Denies Anxiety. No depression. Denies hallucinations. Rheumatological: c/o joint pain in left BKA. Denies Joint swelling Endocrine: Denies tiredness/Fatigue denies Heat/Cold Intolerance. All other negative Physical Examination: General Appearance: Comfortable, in no acute respiratory distress, co-operative . morbid obesity Vitals reviewed and noted as below Head; Atraumatic, normocephalic ENT: no ulcers no thrush. Tongue is midline. Oropharynx: no rash or ulcers. EYES: Pupils are equal, round and reactive to light accommodation. Eye muscles and extraocular movement intact. Sclera is anicteric. Neck; supple no lymphadenopathy, no thyromegaly or bruit Lungs: Normal respiratory rate/effort. Breath sounds bilateral equal and clear Heart: Normal rate. s1s2 normal. No rub or gallop. Extremities: left BKA in dressing. RLE in dressing. Neurological: Patient is alert, awake and oriented to person, place and time. No focal deficit. Strength bilateral appropriate and equal Skin: Warm and dry. Normal turgor. No rash. Palpitation: Normal elasticity for age Abdomen: Abdomen is soft. Bowel sounds +. There is no abdominal tenderness, no guarding/rigidity no organomegaly Psych: normal insight and normal affect/mood MSK: no joint tenderness or swelling. Digits and nails normal, no deformity : kidney or bladder not palpable Labs/imaging reviewed. Past medical history, past surgical history, family history, social history, allergy reviewed and noted as below Family hx: no hx of CKD. Rest non-contributory Past Patient History - Infectious Disease Hx of Infectious Diseases: None - Past Social History Smoking Status: Never Smoked - CARDIAC Hx Cardiac Disorders: Yes Hx Hypertension: Yes Other/Comment: PE in the past - PULMONARY Hx Respiratory Disorders: Yes Hx Sleep Apnea: Yes - NEUROLOGICAL Hx Neurological Disorder: No - HEENT Hx HEENT Problems: Yes Other/Comment: glasses - RENAL Hx Chronic Kidney Disease: No - ENDOCRINE/METABOLIC Hx Endocrine Disorders: Yes Hx Diabetes Mellitus Type 1: Yes - HEMATOLOGICAL/ONCOLOGICAL Hx Blood Disorders: No - INTEGUMENTARY Hx Dermatological Problems: No - MUSCULOSKELETAL/RHEUMATOLOGICAL Hx Musculoskeletal Disorders: Yes Hx Back Pain: Yes - GASTROINTESTINAL Hx Gastrointestinal Disorders: No - GENITOURINARY/GYNECOLOGICAL Hx Genitourinary Disorders: No - PSYCHIATRIC Hx Psychophysiologic Disorder: No Hx Substance Use: No - SURGICAL HISTORY Other/Comment: Miah OVALLES in 11/2016 - ANESTHESIA Hx Anesthesia: Yes Hx Anesthesia Reactions: No Meds Allergies/Adverse Reactions: Allergies Allergy/AdvReac Type Severity Reaction Status Date / Time lisinopril Allergy ANAPHYLAXIS Verified 02/03/17 18:33 - Medications Medications: Current Medications Atorvastatin Calcium (Lipitor) 40 mg PO HS [facility] Last Admin: 02/03/17 22:02 Dose: 40 mg Enoxaparin Sodium (Lovenox) 30 mg SC DAILY [facility] PRN Reason: Protocol Last Admin: 02/04/17 11:25 Dose: Not Given Hydromorphone HCl (Dilaudid) 1 mg IVP Q4H PRN PRN Reason: Pain, severe (8-10) Last Admin: 02/04/17 11:17 Dose: 1 mg Sodium Chloride (Sodium Chloride 0.45%) 1,000 mls @ 80 mls/hr IV .[id number] [facility] Daptomycin 1,330 mg/ Sodium (Chloride) 100 mls @ 200 mls/hr IV Q48H [facility] Stop: 02/11/17 12:46 Insulin Detemir (Levemir) 19 unit SC [facility] Last Admin: 02/04/17 11:27 Dose: Not Given Metoprolol Succinate (Toprol Xl) 25 mg PO DAILY [facility] Last Admin: 02/04/17 11:19 Dose: 25 mg Non-Formulary Medication (Insulin Aspart [Novolog Flexpen]) 25 units SQ TID PRN PRN Reason: sliding scale Pantoprazole Sodium (Protonix Ec Tab) 40 mg PO DAILY [facility] Last Admin: 02/04/17 11:24 Dose: 40 mg Tamsulosin HCl (Flomax) 1 mg PO DAILY [facility] Last Admin: 02/04/17 11:22 Dose: 1 mg Venlafaxine HCl (Effexor Xr) 150 mg PO DAILY [facility] Last Admin: 02/04/17 11:37 Dose: 150 mg Results - Vital Signs Recent Vital Signs: Last Vital Signs Temp 98.7 F 02/04/17 08:00 Pulse 75 02/04/17 08:00 Resp 20 02/04/17 08:00 BP 148/78 02/04/17 08:00 Pulse Ox 96 02/04/17 08:00 - Labs Result Diagrams: 02/04/17 06:30 02/04/17 06:30 Labs: Laboratory Results - last 24 hr 02/03/17 02/03/17 02/03/17 17:14 21:10 21:55 WBC RBC Hgb Hct MCV MCH MCHC RDW Plt Count MPV ESR PT INR Sodium Potassium Chloride Carbon Dioxide Anion Gap BUN Creatinine Est GFR ( Amer) Est GFR (Non-Af Amer) POC Glucose (mg/dL) 183 H 212 H 184 H Random Glucose Calcium Iron TIBC % Saturation Total Bilirubin AST ALT Alkaline Phosphatase C-React Prot High Sens Total Protein Albumin Globulin Albumin/Globulin Ratio 02/04/17 02/04/17 02/04/17 06:30 06:30 06:30 WBC 6.0 RBC 3.84 Hgb 10.4 L Hct 32.4 L MCV 84.4 MCH 27.1 MCHC 32.1 RDW 14.2 Plt Count 231 MPV 8.9 ESR 124 H PT 41.6 H INR 3.68 H* Sodium Potassium Chloride Carbon Dioxide Anion Gap BUN Creatinine Est GFR ( Amer) Est GFR (Non-Af Amer) POC Glucose (mg/dL) Random Glucose Calcium Iron TIBC % Saturation Total Bilirubin AST ALT Alkaline Phosphatase C-React Prot High Sens > 15.00 H Total Protein Albumin Globulin Albumin/Globulin Ratio 02/04/17 02/04/17 02/04/17 06:30 07:31 11:24 WBC RBC Hgb Hct MCV MCH MCHC RDW Plt Count MPV ESR PT INR Sodium 137 Potassium 5.4 H Chloride 107 Carbon Dioxide 20 L Anion Gap 16 BUN 83 H Creatinine 3.8 H Est GFR ( Amer) 20 Est GFR (Non-Af Amer) 17 POC Glucose (mg/dL) 179 H 204 H Random Glucose 220 H Calcium 8.5 Iron TIBC % Saturation Total Bilirubin 0.5 AST 33 ALT 31 Alkaline Phosphatase 205 H C-React Prot High Sens Total Protein 6.8 Albumin 2.9 L Globulin 3.9 Albumin/Globulin Ratio 0.8 L 02/04/17 13:10 WBC RBC Hgb Hct MCV MCH MCHC RDW Plt Count MPV ESR PT INR Sodium Potassium Chloride Carbon Dioxide Anion Gap BUN Creatinine Est GFR ( Amer) Est GFR (Non-Af Amer) POC Glucose (mg/dL) Random Glucose Calcium Iron 33 L TIBC 223 L % Saturation 15 L Total Bilirubin AST ALT Alkaline Phosphatase C-React Prot High Sens Total Protein Albumin Globulin Albumin/Globulin Ratio
--- NOTE | 2017-02-04 18:12 | CARD ---
APPROVED REPORT EXAM: Two-dimensional and M-mode echocardiogram with Doppler and color Doppler. INDICATION PEDAL EDEMA 2D DIMENSIONS Left Atrium (2D)4.3 (1.6-4.0cm)IVSd1.4 (0.7-1.1cm) LVDd5.1 (3.9-5.9cm)PWd1.4 (0.7-1.1cm) LVDs3.5 (2.5-4.0cm)FS (%) 31.2 % LVEF (%)58.6 (>50%) M-Mode DIMENSIONS Aortic Root3.00 (2.2-3.7cm)Aortic Cusp Exc.2.00 (1.5-2.0cm) Aortic Valve AoV Peak Ictclgto383.0cm/Lisa Peak GR.6mmHg Mitral Valve MV E Dlgissbu98.5cm/sMV A Bzkmrtwx90.9cm/sE/A ratio0.8 TDI E/Lateral E'0.0E/Medial E'0.0 Tricuspid Valve TR Peak [id number]/sRAP [id number] Peak Gr.7mmHg [id number] LEFT VENTRICLE The left ventricle is normal size. There is mild concentric left ventricular hypertrophy. The left ventricular function is normal. The left ventricular ejection fraction is within the normal range. There is normal LV segmental wall motion. Transmitral Doppler flow pattern is Grade I-abnormal relaxation pattern. RIGHT VENTRICLE The right ventricle is normal size. There is normal right ventricular wall thickness. The right ventricular systolic function is normal. ATRIA The left atrium is borderline dilated. The right atrium size is normal. AORTIC VALVE The aortic valve is not well visualized. No aortic regurgitation is present. There is no aortic valvular stenosis. MITRAL VALVE The mitral valve is normal in structure. There is no mitral valve regurgitation noted. TRICUSPID VALVE The tricuspid valve is normal in structure. There is no tricuspid valve regurgitation noted. GREAT VESSELS The aortic root is normal in size. The IVC was not visualized. PERICARDIAL EFFUSION There is a trace loculated anterior pericardial effusion. <Conclusion> The left ventricle is normal size. There is mild concentric left ventricular hypertrophy. The left ventricular function is normal. The left ventricular ejection fraction is within the normal range. There is normal LV segmental wall motion. Transmitral Doppler flow pattern is Grade I-abnormal relaxation pattern.
[2017-02-04] MEDS: Sodium Chloride 0.45% 1,000 ML IV SCH ×2 (18:48→22:24)
--- NOTE | 2017-02-04 19:40 | PN ---
DATE: 02/04/2017 SUBJECTIVE: The patient is in bed, in no acute distress, was seen early this morning, later that day developed a rash after given Teflaro. PHYSICAL EXAMINATION: VITAL SIGNS: Temperature is 98, blood pressure is 140/70, respiratory rate of 18. HEENT: Unremarkable. NECK: Supple. LUNGS: Decreased breath sounds. HEART: Normal S1 and S2. ABDOMEN: Soft. LABORATORY EXAMINATION: Reveals a white count of 6.0, hemoglobin of 10, and platelets of 124. Chemistries reveal a BUN of 83, creatinine of 3.8, C-reactive protein is greater than 15. Microbiology reveals that blood cultures are negative, no growth at 24 hours. The leg culture is pending. ASSESSMENT AND PLAN: This is a 56-year-old male with morbid obesity, BMI of 55; diabetes mellitus; renal disease; hypertension; history of left below-knee amputation, admitted with severe left stump cellulitis, renal failure, unable to tolerate Teflaro because of a rash, unable to use Zyvox because of venlafaxine. Currently, we will use daptomycin 6 mg/kg IV q. 48 hours. We will follow clinically. Must rule out underlying osteomyelitis. Dr. Samir Vora's note is reviewed. We will follow closely with you. Kobe Brownlee MD
[2017-02-04 21:19] LABS: URINE BILIRUBIN SMALL (NEGATIVE); URINE BLOOD LARGE (NEGATIVE); URINE GLUCOSE (UA) NEGATIVE (NEGATIVE); URINE LEUKOCYTE ESTERASE NEGATIVE Leu/uL (NEGATIVE); URINE NITRATE NEGATIVE (NEGATIVE); URINE PROTEIN >=300 mg/dL (<30 mg/dL); URINE UROBILINOGEN 0.2 E.U./dL (<1 E.U./dL)
[2017-02-04 21:20] LABS: URINE APPEARANCE CLEAR (CLEAR); URINE COLOR YELLOW (YELLOW)
[2017-02-04 21:35] LABS: URINE BACTERIA MANY (NEG); URINE EPITHELIAL CELLS 0 - 2 /hpf (0-5); URINE RBC TNTC /hpf (0-2)
[2017-02-04 21:36] LABS: URINE AMORPHOUS SEDIMENT FEW; URINE COARSE GRANULAR CAST SMALL /hpf (0-2)
[2017-02-04 22:14] LABS: CREATININE,RANDOM URINE 288 mg/dL
[2017-02-05 07:34] LABS: HEMOGLOBIN 9.9 g/dL (14.0-18.0); MEAN CELL VOLUME 84.3 fl (80.0-105.0); MEAN CORPUSCULAR HEMOGLOBIN 27.3 pg (25.0-35.0); MEAN CORPUSCULAR HGB CONC 32.5 g/dl (31.0-37.0); MEAN PLATELET VOLUME 9.1 fl (7.0-11.0); RBC 3.62 10^6/uL (3.5-6.1); RED CELL DISTRIBUTION WIDTH 14.1 % (11.5-14.5); WHITE BLOOD COUNT 4.8 10^3/ul (4.5-11.0)
[2017-02-05 08:01] LABS: INR 3.01 (0.93-1.08); PARTIAL THROMBOPLASTIN TIME 39.5 Seconds (25.1-36.5); PROTHROMBIN TIME 33.9 SECONDS (9.4-12.5)
[2017-02-05 08:08] LABS: ALB/GLOB RATIO 0.8 (1.1-1.8); ALBUMIN 2.9 g/dL (3.0-4.8)
[2017-02-05] MEDS ORDERED: Sod Polystyrene Sulf 15 gm/60 ml Susp PO ONE (08:58)
[2017-02-05] MEDS ORDERED: Sodium Chloride 0.9% 1,000 ML IV SCH (09:00)
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
[2017-02-05] MEDS: Venlafaxine 75 mg ER Cap PO SCH (09:42)
[2017-02-05] MEDS: Pantoprazole 40 mg EC Tab PO SCH (09:42)
[2017-02-05] MEDS: Insulin Detemir 100 units/ml Vial (Levemir) SC SCH (09:46)
[2017-02-05] MEDS: Metoprolol Succinate 25 mg XL Tab PO SCH (09:50)
--- NOTE | 2017-02-05 10:05 | CP.PCM.PN ---
Subjective - Date & Time of Evaluation Date of Evaluation: 02/05/17 Time of Evaluation: 07:00 - Subjective Subjective: Surgery Progress Note for Dr. Santiago Patient seen and examined at bedside. Pt states that LLE stump is painful and "throbbing". Reports mild nausea. Pt denied CP, SOB, vomiting, diarrhea, abdominal pain, fever, chills, CORMIER, or dizziness. He is tolerating his diet. Dressing was changed. Objective - Vital Signs/Intake and Output Vital Signs (last 24 hours): Temp Pulse Resp BP Pulse Ox 97.7 F 72 20 149/82 94 L 02/05/17 08:51 02/05/17 09:50 02/05/17 08:51 02/05/17 09:50 02/05/17 08:51 Intake and Output: 02/05/17 02/05/17 06:59 18:59 Intake Total 3970 Output Total 1350 Balance 2620 - Medications Medications: Current Medications Amlodipine Besylate (Norvasc) 5 mg PO DAILY [facility] Last Admin: 02/05/17 09:45 Dose: 5 mg Atorvastatin Calcium (Lipitor) 40 mg PO HS [facility] Last Admin: 02/04/17 22:22 Dose: 40 mg Enoxaparin Sodium (Lovenox) 30 mg SC DAILY [facility] PRN Reason: Protocol Last Admin: 02/04/17 11:25 Dose: Not Given Ferrous Gluconate (Fergon) 324 mg PO TID [facility] Last Admin: 02/05/17 09:46 Dose: 324 mg Hydralazine HCl (Apresoline) 25 mg PO QID PRN PRN Reason: Other Hydromorphone HCl (Dilaudid) 1 mg IVP Q4H PRN PRN Reason: Pain, severe (8-10) Last Admin: 02/04/17 18:47 Dose: 1 mg Sodium Chloride (Sodium Chloride 0.45%) 1,000 mls @ 80 mls/hr IV .[id number] [facility] Last Admin: 02/04/17 22:24 Dose: 80 mls/hr Daptomycin 1,330 mg/ Sodium (Chloride) 100 mls @ 200 mls/hr IV Q48H [facility] Stop: 02/11/17 12:46 Last Admin: 02/04/17 18:46 Dose: 200 mls/hr Sodium Chloride (Sodium Chloride 0.9%) 1,000 mls @ 75 mls/hr IV .[id number] [facility] Stop: 02/06/17 10:00 Last Admin: 02/05/17 09:49 Dose: 75 mls/hr Insulin Detemir (Levemir) 19 unit SC AMHS [facility] Last Admin: 02/05/17 09:46 Dose: 19 unit Metoprolol Succinate (Toprol Xl) 25 mg PO DAILY [facility] Last Admin: 02/05/17 09:50 Dose: 25 mg Non-Formulary Medication (Insulin Aspart [Novolog Flexpen]) 25 units SQ TID PRN PRN Reason: sliding scale Pantoprazole Sodium (Protonix Ec Tab) 40 mg PO DAILY [facility] Last Admin: 02/05/17 09:42 Dose: 40 mg Sodium Bicarbonate (Sodium Bicarbonate Tab) 650 mg PO Q12 [facility] Last Admin: 02/05/17 09:42 Dose: 650 mg Tamsulosin HCl (Flomax) 1 mg PO DAILY [facility] Last Admin: 02/05/17 09:48 Dose: 1 mg Venlafaxine HCl (Effexor Xr) 150 mg PO DAILY [facility] Last Admin: 02/05/17 09:42 Dose: 150 mg - Labs Labs: 02/05/17 07:00 02/05/17 07:00 PT 33.9 SECONDS (9.4-12.5) H 02/05/17 07:00 INR 3.01 (0.93-1.08) H 02/05/17 07:00 APTT 39.5 Seconds (25.1-36.5) H 02/05/17 07:00 - Constitutional Appears: Non-toxic, No Acute Distress - Head Exam Head Exam: ATRAUMATIC, NORMAL INSPECTION - Eye Exam Eye Exam: EOMI, Normal appearance - Respiratory Exam Respiratory Exam: NORMAL BREATHING PATTERN. absent: Respiratory Distress - Cardiovascular Exam Cardiovascular Exam: +S1, +S2 - GI/Abdominal Exam GI & Abdominal Exam: Soft. absent: Tenderness - Extremities Exam Additional comments: LLE: edema, wrapped in [place] wrap, dressing changed. 2 open lesions on stump with small amount purulent discharge. Tender - Neurological Exam Neurological Exam: Alert, Awake, Oriented x3 - Psychiatric Exam Psychiatric exam: Normal Affect, Normal Mood - Skin Skin Exam: Dry, Normal Color, Warm Assessment and Plan - Assessment and Plan (Free Text) Assessment: 56 yo M s/p Left BKA with LLE BKA stump trauma and infection. - IV abx per ID: on Daptomycin - Gram stain: moderate gram + cocci - Plan for I&D in OR on Tuesday - INR still elevated, 3.01 - Continue to hold coumadin - Cr increasing, renal following - Medical management per primary - DW Dr. Jack Vazquez, PGY-3
[2017-02-05] MEDS ORDERED: Phytonadione 10 mg/ml Inj (Adult) SC ONE (12:11)
[2017-02-05] MEDS: Enoxaparin 30 mg Syringe SC SCH (12:13)
--- NOTE | 2017-02-05 13:33 | PN ---
DATE: 02/05/2017 SUBJECTIVE: The patient is in bed, in no acute distress, nontoxic. OBJECTIVE: VITAL SIGNS: Temperature is 97, blood pressure is 120/70, and respiratory rate of 16. HEENT: Unremarkable. NECK: Supple. LUNGS: Have decreased breath sounds. HEART: Normal S1 and S2. ABDOMEN: Soft and nontender. LABORATORY DATA: Reveals the patient's white count of 4.8 and hemoglobin of 9. Sed rate is 124. Chemistries are noted, and microbiology reveals the blood cultures are no growth. The leg cultures are pending. Review of orders reveals the patient to be on daptomycin. ASSESSMENT AND PLAN: This is a 56-year-old male with morbid obesity with body mass index of 55, diabetes mellitus, renal disease, hypertension, and history of left below-knee amputation with severe left stump cellulitis with renal failure, was unable to tolerate Teflaro, developed a rash, cannot use Zyvox because of venlafaxine, currently on daptomycin and appears to be improving. We will follow closely with you. Kobe Brownlee MD
--- NOTE | 2017-02-05 16:11 | PN ---
SUBJECTIVE: I saw Joel resting comfortably in bed. He slept well. He is eating well. He is in no pain and he is waiting for the procedure to be done at the left stump, it is still draining and has still mild tenderness, but not bad at this time. MEDICATIONS: He is on IV fluids, hydralazine, daptomycin, Dilaudid, Effexor, Fergon, Flomax, insulin, insulin coverage, Levemir, Lipitor, Lovenox, Norvasc, Protonix, IV fluids, Toprol, and vitamin K. PHYSICAL EXAMINATION: VITAL SIGNS: He has 97.7 temp, 72 pulse, 149/82 blood pressure, 20 respiratory rate, 94% O2 sat on room air. HEENT: Head is atraumatic and normocephalic. Throat is moist. NECK: Supple. HEART: Regular rate. LUNGS: Decreased breath sounds, clear to auscultation. ABDOMEN: Morbidly obese. Nontender. Positive bowel sounds. EXTREMITIES: He has got a left BKA with wound and draining ulcer and lots of edema of both legs. LABORATORY DATA: 4.8 white count, 9.9 hemoglobin, 30.5 hematocrit, 220 platelets. INR is 3.01, we will give him vitamin K. He has 373 blood sugar, 350 blood sugar. Calcium sole ruffer. He is on insulin. He is on Levemir. He is on coverage AST is 32, ALT is 30, alkaline phosphatase 183, total protein 6.4, globulin 3.6. He had a Gram-positive cocci in the wound. He is being seen by Surgery, Renal, Infectious disease, Cardiology. We will give him vitamin K to get the INR down. We are giving him IV antibiotics, IV fluids. I am going to decrease some of fluids he is on, he is very swollen. His BUN is 92 and his creatinine is 4.8 as per Renal. Continue with aggressive treatment and care. He has got multiple issues, left stump BKA infection with a wound, obese, diabetes, acute renal failure. Pedrito Tee DO MTDD
[2017-02-05] MEDS ORDERED: Insulin Reg-MEDIUM-Coverage SC SCH (16:30)
[2017-02-05] MEDS: Insulin Lispro 1 UNITS/0.01 ML SC SCH (17:32)
[2017-02-05] MEDS: HYDROmorphone 1 mg/ml ISec IVP PRN (17:33)
[2017-02-05] MEDS: Insulin Lispro (humaLOG) LOW Coverage SC SCH ×2 (17:33→21:59)
[2017-02-05] MEDS: Sodium Chloride 0.45% 1,000 ML IV SCH (17:34)
[2017-02-05] MEDS ORDERED: Insulin Lispro 1 UNITS/0.01 ML SC ONE (18:10)
[2017-02-05] MEDS ORDERED: Insulin Detemir 100 units/ml Vial (Levemir) SC SCH (22:00)
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
[2017-02-06 07:54] LABS: HEMOGLOBIN 9.4 g/dL (14.0-18.0); MEAN CELL VOLUME 82.2 fl (80.0-105.0); MEAN CORPUSCULAR HEMOGLOBIN 26.6 pg (25.0-35.0); MEAN CORPUSCULAR HGB CONC 32.4 g/dl (31.0-37.0); MEAN PLATELET VOLUME 8.9 fl (7.0-11.0); RBC 3.53 10^6/uL (3.5-6.1); RED CELL DISTRIBUTION WIDTH 13.7 % (11.5-14.5)
[2017-02-06 07:59] LABS: INR 1.88 (0.93-1.08)
[2017-02-06 08:00] LABS: PARTIAL THROMBOPLASTIN TIME 32.7 Seconds (25.1-36.5)
[2017-02-06 08:19] LABS: ALB/GLOB RATIO 0.7 (1.1-1.8); ALBUMIN 2.8 g/dL (3.0-4.8); CALCIUM 7.9 mg/dL (8.4-10.5)
[2017-02-06] MEDS: Insulin Lispro 1 UNITS/0.01 ML SC SCH ×2 (08:22→17:17)
--- NOTE | 2017-02-06 08:23 | CP.PCM.PN ---
Subjective - Date & Time of Evaluation Date of Evaluation: 02/06/17 Time of Evaluation: 07:00 - Subjective Subjective: Surgery Progress Note for Dr. Santiago Patient seen and examined at bedside. Pt states that LLE stump is painful. Reports mild nausea. He is tolerating his diet. Dressing was changed overnight by nurse because the previous dressing slid off. Objective - Vital Signs/Intake and Output Vital Signs (last 24 hours): Temp Pulse Resp BP Pulse Ox 97.4 F L 69 18 153/89 H 96 02/06/17 00:05 02/06/17 00:05 02/06/17 00:05 02/06/17 00:05 02/06/17 00:05 Intake and Output: 02/06/17 02/06/17 06:59 18:59 Intake Total 240 Output Total 500 Balance -260 - Medications Medications: Current Medications Amlodipine Besylate (Norvasc) 5 mg PO DAILY [facility] Last Admin: 02/05/17 09:45 Dose: 5 mg Atorvastatin Calcium (Lipitor) 40 mg PO HS [facility] Last Admin: 02/05/17 22:02 Dose: 40 mg Enoxaparin Sodium (Lovenox) 30 mg SC DAILY [facility] PRN Reason: Protocol Last Admin: 02/05/17 12:13 Dose: Not Given Ferrous Gluconate (Fergon) 324 mg PO TID [facility] Last Admin: 02/05/17 17:33 Dose: 324 mg Hydralazine HCl (Apresoline) 25 mg PO QID PRN PRN Reason: Other Hydromorphone HCl (Dilaudid) 1 mg IVP Q4H PRN PRN Reason: Pain, severe (8-10) Last Admin: 02/05/17 17:33 Dose: 1 mg Sodium Chloride (Sodium Chloride 0.45%) 1,000 mls @ 80 mls/hr IV .[id number] [facility] Last Admin: 02/05/17 17:34 Dose: 80 mls/hr Daptomycin 1,330 mg/ Sodium (Chloride) 100 mls @ 200 mls/hr IV Q48H [facility] Stop: 02/11/17 12:46 Last Admin: 02/04/17 18:46 Dose: 200 mls/hr Insulin Detemir (Levemir) 40 unit SC [facility] Last Admin: 02/05/17 22:02 Dose: 40 unit Insulin Human Lispro (Humalog Low) 0 units SC ACHS [facility] PRN Reason: Protocol Last Admin: 02/05/17 21:59 Dose: Not Given Insulin Human Lispro (Humalog) 24 units SC AC [facility] Last Admin: 02/05/17 17:32 Dose: 24 units Metoprolol Succinate (Toprol Xl) 25 mg PO DAILY [facility] Last Admin: 02/05/17 09:50 Dose: 25 mg Pantoprazole Sodium (Protonix Ec Tab) 40 mg PO DAILY [facility] Last Admin: 02/05/17 09:42 Dose: 40 mg Sodium Bicarbonate (Sodium Bicarbonate Tab) 650 mg PO Q12 [facility] Last Admin: 02/05/17 22:02 Dose: 650 mg Tamsulosin HCl (Flomax) 1 mg PO DAILY [facility] Last Admin: 02/05/17 09:48 Dose: 1 mg Venlafaxine HCl (Effexor Xr) 150 mg PO DAILY [facility] Last Admin: 02/05/17 09:42 Dose: 150 mg - Labs Labs: 02/06/17 07:30 02/06/17 07:30 PT 21.0 SECONDS (9.4-12.5) H 02/06/17 07:30 INR 1.88 (0.93-1.08) H 02/06/17 07:30 APTT 32.7 Seconds (25.1-36.5) 02/06/17 07:30 - Constitutional Appears: Non-toxic, No Acute Distress - Respiratory Exam Respiratory Exam: NORMAL BREATHING PATTERN. absent: Respiratory Distress - Cardiovascular Exam Cardiovascular Exam: +S1, +S2 - Extremities Exam Additional comments: LLE: edema, dressing changed by nurse- diaper applied due to previous dressing sliding off. Dressing clean/dry/intact. tender - Neurological Exam Neurological Exam: Alert, Awake - Psychiatric Exam Psychiatric exam: Normal Affect, Normal Mood Assessment and Plan - Assessment and Plan (Free Text) Assessment: 56 yo M s/p Left BKA with LLE BKA stump trauma and infection. - IV abx per ID: on Daptomycin - Wound cx = gram + cocci - Plan for I&D in OR on Tuesday pending INR - INR improved to 1.88 but still elevated - Continue to hold coumadin - Cr increasing, renal following: per note: no emergent need for renal replacement yet - Medical management per primary - DW Dr. Jack Vazquez, PGY-3
[2017-02-06] MEDS: Insulin Lispro (humaLOG) LOW Coverage SC SCH ×4 (08:25→21:16)
[2017-02-06] MEDS: Venlafaxine 75 mg ER Cap PO SCH (09:02)
[2017-02-06] MEDS: Pantoprazole 40 mg EC Tab PO SCH (09:03)
[2017-02-06] MEDS: Metoprolol Succinate 25 mg XL Tab PO SCH (09:03)
[2017-02-06] MEDS: Enoxaparin 30 mg Syringe SC SCH (09:04)
[2017-02-06] MEDS ORDERED: Insulin Lispro 1 UNITS/0.01 ML SC SCH (09:59)
[2017-02-06] MEDS ORDERED: cefTRIAXone 1 gm 1 GM/100 ML BAG IVPB SCH (10:00)
[2017-02-06] MEDS ORDERED: Phytonadione 10 mg/ml Inj (Adult) SC ONE (10:29)
[2017-02-06] MEDS ORDERED: DAPTOmycin 500 mg Inj (Cubicin) IV SCH (12:30)
--- NOTE | 2017-02-06 12:53 | PN ---
DATE: 02/06/2017 SUBJECTIVE: The patient is in bed, in no acute distress, nontoxic. PHYSICAL EXAMINATION: VITAL SIGNS: Temperature is 97, blood pressure is 150/90, respiratory rate of 18. HEENT: Unremarkable. NECK: Supple. LUNGS: Decreased breath sounds. HEART: Normal S1, S2. ABDOMEN: Soft, nontender. LABORATORY EXAMINATION: Reveals a white count of 6, hemoglobin of 9, platelets of 246. Coagulation is noted. Chemistries reveals a BUN of 101, creatinine of 5.2 and urinalysis is noted and microbiology reveals leg culture is staph aureus, which is pansensitive to Staph aureus and blood cultures, no growth. ASSESSMENT AND PLAN: A 56-year-old male with morbid obesity, body mass index of 55, diabetes mellitus, renal disease, hypertension and with left [id number] amputation with severe left stump sensitive staph aureus cellulitis, tolerating daptomycin. The patient developed a rash on the Teflaro, unable to use penicillin. It is sensitive to staph and we will discontinue daptomycin, unable to use a beta-lactam because he developed a rash. It is sensitive to Levaquin. We will check on the electrocardiogram with QTc of 430. We will be able to use Levaquin at 250 mg once daily. Adjusted for the patient's renal disease. Kobe Brownlee MD
--- NOTE | 2017-02-06 13:57 | PN ---
DATE: SUBJECTIVE: I saw Joel resting comfortably in bed. He slept fairly well. He is eating okay. Not uncomfortable at all. No chest pain. No shortness of breath. May be a little bit of left stump discomfort, but it is bandaged. He understands tomorrow Surgery is going to take him for a debridement of the left stump, which is wound and meaty and looks infected. PHYSICAL EXAMINATION: VITAL SIGNS: He has a 97.9 temperature, 71 pulse, 154/90 blood pressure, 18 respiratory rate, 96% O2 sat on room air. He is 490 pounds. HEENT: Head is atraumatic, normocephalic. HEART: Regular rate. LUNGS: Decreased breath sounds, but clear. ABDOMEN: Morbidly obese. EXTREMITIES: +4 pitting edema, right. The left is very swollen. MEDICATIONS: He is currently on Apresoline, Dilaudid, Effexor, Fergon, Flomax, insulin. I increased his insulin to 30 units from 24 because his blood has been in the high 370s. Levaquin, Levemir, also increased to 40 units at nighttime because his blood sugar has been out of control, Lipitor. He is on Lovenox now. He is off Coumadin. We are trying to get the INR down. I also gave him another dose of vitamin K today which is 1.88, Norvasc, Protonix, sodium bicarbonate, IV fluids at 80 because his kidney functions are off and metoprolol. LABORATORY DATA: He has white count of 6, hemoglobin 9.4, hematocrit 29, platelets 246. INR is down to 1.88 better than 3.68. I will give him another dose of vitamin K. He is on Lovenox. He has 132 sodium, potassium 4.9, BUN is 101, creatinine is 5.2. He is getting worse. Blood sugar is 348 and 420, I adjusted his insulin, waiting for Endocrinology to see him. Calcium 7.9, AST is 19, ALT is 31, alkaline phosphatase is 189. ASSESSMENT AND PLAN: He had many bacteremia. He has got multiple problems. He is morbidly obese. Left stump below-knee amputation with an infection, acute renal failure, diabetes out of control. He has got an infection of the left stump. He has hypertension, high cholesterol and tomorrow he is supposed to go for a procedure with Surgery. I will make him n.p.o. tonight, so we can do the debridement tomorrow. Continue with IV antibiotics. Wait for Endocrinology to adjust his insulin, I have been adjusting it. He said he has had a left lower extremity below-knee amputation stump trauma and infection, vitamin K, insulin adjustment. Pedrito Tee DO
[2017-02-06] MEDS: Sodium Chloride 0.45% 1,000 ML IV SCH (18:19)
[2017-02-06] MEDS: HYDROmorphone 1 mg/ml ISec IVP PRN (19:22)
[2017-02-06] MEDS ORDERED: Insulin Detemir 100 units/ml Vial (Levemir) SC SCH (22:00)
[2017-02-07] MEDS: Sodium Chloride 0.45% 1,000 ML IV SCH (04:37)
[2017-02-07] MEDS: HYDROmorphone 1 mg/ml ISec IVP PRN (04:39)
[2017-02-07 07:10] LABS: HEMOGLOBIN 9.8 g/dL (14.0-18.0); MEAN CELL VOLUME 82.4 fl (80.0-105.0); MEAN CORPUSCULAR HEMOGLOBIN 26.9 pg (25.0-35.0); MEAN CORPUSCULAR HGB CONC 32.7 g/dl (31.0-37.0); MEAN PLATELET VOLUME 8.9 fl (7.0-11.0); RBC 3.64 10^6/uL (3.5-6.1); RED CELL DISTRIBUTION WIDTH 13.6 % (11.5-14.5)
[2017-02-07 07:18] LABS: PROTHROMBIN TIME 14.6 SECONDS (9.4-12.5)
[2017-02-07 07:19] LABS: INR 1.32 (0.93-1.08); PARTIAL THROMBOPLASTIN TIME 32.5 Seconds (25.1-36.5)
[2017-02-07 07:21] LABS: ALB/GLOB RATIO 0.7 (1.1-1.8); ALBUMIN 2.9 g/dL (3.0-4.8); CALCIUM 8.2 mg/dL (8.4-10.5)
[2017-02-07] MEDS: Insulin Lispro 1 UNITS/0.01 ML SC SCH ×3 (08:09→16:44)
[2017-02-07] MEDS: Insulin Lispro (humaLOG) LOW Coverage SC SCH ×4 (08:09→22:05)
--- NOTE | 2017-02-07 09:15 | CON ---
DATE: 02/05/2017 ENDOCRINOLOGY CONSULT LOCATION: Room 571-02 HISTORY OF PRESENT ILLNESS: This is a 56-year-old male with known history of type 2 insulin-requiring diabetes presenting here with a below-knee amputation stump cellulitis and underlying infection with supervening hyperglycemic accelerations and is now being referred for diabetic evaluation and management. PAST MEDICAL HISTORY: As mentioned above. History of type 2 insulin-requiring diabetes, currently on Lantus, given as dose of 38 units b.i.d. as noted. He is also on NovoLog, given as 25 units t.i.d. before meals but only on a p.r.n. basis. History of hypertension, peripheral vascular disease, dyslipidemia, history of diabetic retinopathy, polyneuropathy and nephropathy with progressive renal insufficiency and underlying chronic kidney disease, history of coronary artery disease and peripheral arterial disease and vasculopathy with a prior left below-knee amputation in 11/2016, history of underlying morbid obesity and expected increased insulin resistance thereof. Also, the prior history of pulmonary embolism, on oral anticoagulation therapy at this time; history of chronic anemia, most likely related to underlying chronic kidney disease. FAMILY HISTORY: Possible hypertension and diabetes. SOCIAL HISTORY: The patient has a supportive family. No known substance use. REVIEW OF SYSTEMS: As mentioned above. Admits to generalized body weakness with easy fatigability and tiredness and suboptimal energy level. Also, admits to dizziness and lightheadedness, worse on the day of admission, bifrontal headaches and visual blurring as noted. No chest pains or palpitations but admits to progressive shortness of breath especially on exertion. His oral intake is invariable and admits to nausea, dyspepsia, and vague upper abdominal pain. Also, admits to marked polyuria, nocturia, and polydipsia. He actually had an accidental [place] and injured the stump of his left below-knee amputation area with subsequent tenderness, erythema, and infection as noted. PHYSICAL EXAMINATION: GENERAL/VITAL SIGNS: This is a morbidly obese male, in no apparent distress with a blood pressure of 150/90, pulse of 100 beats per minute and regular, temperature 99, respirations 20, height is 6 feet 7 inches, weight is 490 pounds. HEENT: Head normocephalic. Eyes anicteric with pink conjunctivae. Funduscopy not possible at this time. Ears, nose, and throat otherwise normal. NECK: Supple. Thyroid gland is normal in size. No carotid bruits or cervical adenopathy. CARDIOPULMONARY: Adynamic precordium. S1, S2 is rapid and regular. LUNGS: Scattered rhonchi. ABDOMEN: Obese, soft with positive bowel sounds. EXTREMITIES: He has diminished pulses in the right leg as noted and there is evidence of left lower extremity edema with erythema, tenderness, and swelling and 2 open excoriations and wounds in the left below-knee amputation stump area as noted. There is also +1 edema in the right lower extremity with diminished pulses. LABORATORY DATA: His chemistry showed a BUN of 92, sodium 134, potassium 5.3, chloride 105, CO2 of 19, glucose is 350, and creatinine 4.8. His glucose levels have ranged from 271 to 373 mg/dL. ASSESSMENT: This is a 56-year-old male with uncontrolled and decompensated type 2 insulin-requiring diabetes with underlying morbid obesity presenting here with marked hyperglycemic accelerations and a concomitant left below-knee amputation stump cellulitis as noted. He also has diabetic microvascular complications of retinopathy, polyneuropathy, and nephropathy with advanced azotemia and progressive renal insufficiency on the background of underlying chronic kidney disease. He also has diabetic macrovascular complications of coronary artery disease and peripheral arterial disease and vasculopathy with prior left below-knee amputation done in 11/2016. PLAN OF MANAGEMENT: As discussed with the patient and the staff, we will modify his baseline bolus insulin regimen, to optimize metabolic control and because of the underlying morbid obesity, would expect increased insulin resistance and also marked and hefty insulin requirements to override the insulin resistance thereof. We will increase his Levemir to be given only at bedtime to a dose of 30 units subcu daily to start tonight, then we will start him with Humalog given as 24 units subcu t.i.d. before meals to start at dinner time today as ordered. We will actually increase the basal insulin with Levemir to be given as 40 units subcu at bedtime daily as given. We will modify the coverage scale to obviate hypoglycemia with low-dose correction scale using Humalog insulin as given. We will obtain hemoglobin A1c to confirm his prior glycemic control and baseline thyroid function studies will be ordered. We will titrate incrementally as indicated to optimize metabolic control. We will also reinforce diabetic education and dietary instructions especially with weight loss efforts and healthier food choices thereof. We will discuss also the possibility of bariatric surgery if cleared by Nephrology with some underlying morbid obesity and progressive renal insufficiency as noted thereof. A gastric sleeve procedure would be an optimal recommendation. We will follow and advise accordingly. Ania Hernandez MD
--- NOTE | 2017-02-07 09:16 | PN ---
DATE: 02/06/2017 ENDOCRINOLOGY FOLLOWUP NOTE LOCATION: Room 571-02 This is a 56-year-old male with recent uncontrolled type 2 insulin requiring diabetes presenting here with a cellulitis in the left below-knee amputation stump area and currently receiving IV antibiotic management and is also being followed closely for metabolic management because of recent hyperglycemic accelerations as noted thereof. His latest glucose levels today have ranged from 257 to 297 mg/dL. The bedtime glucose was 282 to 420 mg/dL. The latest chemistry showed BUN of 101, sodium 132, potassium 4.9, chloride 104, CO2 is 16, glucose 340, and creatinine is 5.2. There is evidence of progressive renal insufficiency with advanced azotemia and metabolic acidosis as noted today. The marked hyperglycemic accelerations are related to the intercurrent infections on the background of increased insulin resistance with the underlying super-morbid obesity with expected marked insulin requirements thereof. So at this time, we will modify once again his basal and bolus insulin regimen and increase the Humalog to 34 units subcutaneous t.i.d. before meals to start at dinner time today as ordered. We will also increase the Levemir as basal insulin to 54 units subcutaneous at bedtime daily to start tonight. We will titrate incrementally as indicated to optimize metabolic control. We will also continue the low-dose correction scale using Humalog insulin as ordered. We will follow. Ania Hernandez MD
[2017-02-07] MEDS: Pantoprazole 40 mg EC Tab PO SCH (10:28)
[2017-02-07] MEDS: Metoprolol Succinate 25 mg XL Tab PO SCH (10:30)
[2017-02-07] MEDS: Venlafaxine 75 mg ER Cap PO SCH (10:30)
[2017-02-07] MEDS: Ergocalciferol 50,000 Intl Units Cap PO SCH (10:34)
[2017-02-07] MEDS: Enoxaparin 30 mg Syringe SC SCH ×2 (11:48→21:17)
--- NOTE | 2017-02-07 12:15 | PN ---
DATE: 02/07/2017 SUBJECTIVE: I saw Joel resting comfortably in bed, slept fairly well. I am told that he has not had a bowel movement in 4 to 5 days. He has done it before, he says, and will help him with some Dulcolax suppository for his constipation. He is also going for an I and D of his left thumb wound from trauma with surgery. He is off the Coumadin, just on Lovenox, and his INR dropped to a safe procedural number. He is on IV fluids, hydralazine, Dilaudid, Dulcolax, Effexor, Enulose, Fergon, Flomax, insulin, Levaquin, Levemir, Lipitor, Lovenox, Norvasc, Protonix, sodium bicarb, Toprol, vitamin K, and Zofran. PHYSICAL EXAMINATION: VITAL SIGNS: He has a 98.1 temp, 72 pulse, 139/76 blood pressure, 22 respiratory rate, 95% O2 sat on room air. HEENT: His head is atraumatic, normocephalic. Throat is moist. NECK: Supple. HEART: Regular rate. LUNGS: Decreased breath sounds bilaterally. ABDOMEN: Morbidly obese, soft. No apparent tenderness. EXTREMITIES: Left BKA stump is bandaged, and he has got 4/4 pitting edema. LABORATORY DATA: He has 8 white count, 9.8 hemoglobin, 30 hematocrit with 291 platelets. His INR is down 1.32. He is off Coumadin now, just on Lovenox. Sodium is 136, potassium is 4.8, BUN is 104, creatinine is 5.1 which is a problem. I will have renal see him. His blood sugars are now down to 113, 78, 196, 205. He has been n.p.o. last night. Total bili is 0.3, AST is 24, ALT is 31, alk phos 179, total protein 6.9. He has got numerous problems going on right now. He has got left stump trauma infection of left BKA, obesity 500 pounds, acute renal failure, hypertension, now he is constipated. Although they are going to do the I and D of the left stump today, I am quite concerned about his kidney functions. They seem to be getting a little bit worse than getting better. As per renal on that regard, hopefully they can help him improve. Continue aggressive treatment and care on [facility]. Pedrito Tee DO
[2017-02-07] MEDS: HYDROmorphone 0.5 mg/0.5 ml ISec IVP PRN ×2 (12:24→22:01)
--- NOTE | 2017-02-07 14:31 | PN ---
DATE: 02/07/2017 CARDIOLOGY FOLLOWUP NOTE SUBJECTIVE: The patient is resting comfortably. OBJECTIVE: VITAL SIGNS: Blood pressure is 147/66 and heart rate is in the 80s. NECK: Negative JVD. LUNGS: Decreased breath sounds. HEART: Reveal S1 and S2. EXTREMITIES: Edema is still present. LABORATORY DATA: Hemoglobin is 9.8. Chemistries, BUN is 104 and creatinine is 5.1. Glucose is 237. IMPRESSION: 1. Acute renal failure. 2. Hypertension. 3. Infection of the left below-knee amputation stump. 4. Morbid obesity. PLAN: Given these findings, the patient's cardiac status, the echocardiogram shows good LV function without pulmonary hypertension. We will need to control his blood pressure well. The patient's renal function has deteriorated since admission. Samir Vora MD
--- NOTE | 2017-02-07 15:28 | CP.PCM.PN ---
Subjective - Date & Time of Evaluation Date of Evaluation: 02/07/17 Time of Evaluation: 15:24 - Subjective Subjective: Follow up Nephrology Consultation: Assessment: worsening Acute Kidney Injury (N17.9) unclear etiology. possible AIN considering recent antibiotics/NSAIDs, rash Diabetic chronic Kidney Disease (E11.22) Hypertensive Chronic Kidney Disease (I12.9) Anemia (D64.9), HTN (I12.9) Hyperkalemia, acidosis diabetes Mellitus with retinopathy, hypertension, morbid obesity, hx of PE on coumadin, left leg wound s/p BKA in sep 2016 now with fall proteinuria and microscopic hematuria Vit D def Plan No acute need for renal replacement therapy at this time. UOP 1 L and cr platuening Hypertension control with meds as ordered. hold ACEI/ARB due to KIA. also d/c HCTZ. Increased norvasc Increased sodium bicarb 1300 bid. continue with iron supplements. weekly Vit D as ordered. agree with kayexylate lora catheter hopefully can be d/c in next 1-2 days. continue with flomax Monitor Input/Output, daily weights and renal function with basic metabolic panel Check iPTH, C3/C4/BROOK/DNA ab/ANCA/Hep B and C serology Check serum protein electrophoresis with immunofixation, kappa/lambda ratio Dose meds/antibiotics for reduced GFR. Avoid fleets enema/magnesium based laxatives. Avoid nephrotoxins/NSAIDs/ iodinated contrast (unless needed emergently) Glycemic control Further work up/management as per primary team Thanks for allowing me to participate in care of your patient. Will follow patient with you. Please call if any Qs. d/w primary team Dr Gomez Ventura Office: [phone] Chief Complaint; fall on left leg stump HPI: Pt is a 56 M with hx of diabetes Mellitus (35 years) with retinopathy, hypertension (30 years), morbid obesity, hx of PE on coumadin, left leg wound s/ p BKA in sep 2016 @ [facility], who was in a cruise presented with complaints of fall on left BKA stump and bleeding thereafter. he was also given IV antibiotics in cruise ? name of antibiotics. Denies chest pain, palpitation, shortness of breath, has chronic leg swelling Denies OTC/herbal meds but was taking NSAIDs No recent iodinated contrast exposure. No obvious episodes of low BP. Physical Examination: General Appearance: Comfortable, in no acute respiratory distress, co-operative . morbid obesity Vitals reviewed and noted as below Head; Atraumatic, normocephalic ENT: no ulcers no thrush. Tongue is midline. Oropharynx: no rash or ulcers. EYES: Pupils are equal, round and reactive to light accommodation. Eye muscles and extraocular movement intact. Sclera is anicteric. Neck; supple no lymphadenopathy, no thyromegaly or bruit Lungs: Normal respiratory rate/effort. Breath sounds bilateral equal and clear Heart: Normal rate. s1s2 normal. No rub or gallop. Extremities: left BKA in dressing. RLE in dressing. Neurological: Patient is alert, awake and oriented to person, place and time. No focal deficit. Strength bilateral appropriate and equal Skin: Warm and dry. Normal turgor. No rash. Palpitation: Normal elasticity for age Abdomen: Abdomen is soft. Bowel sounds +. There is no abdominal tenderness, no guarding/rigidity no organomegaly Psych: normal insight and normal affect/mood MSK: no joint tenderness or swelling. Digits and nails normal, no deformity : kidney or bladder not palpable Labs/imaging reviewed. Past medical history, past surgical history, family history, social history, allergy reviewed and noted as below Family hx: no hx of CKD. Rest non-contributory Objective - Vital Signs/Intake and Output Vital Signs (last 24 hours): Temp Pulse Resp BP Pulse Ox 97.7 F 78 18 155/68 H 93 L 02/07/17 14:59 02/07/17 14:59 02/07/17 14:59 02/07/17 14:59 02/07/17 14:59 Intake and Output: 02/07/17 02/07/17 06:59 18:59 Intake Total 0 Output Total 800 Balance -800 0 - Medications Medications: Current Medications Amlodipine Besylate (Norvasc) 10 mg PO DAILY [facility] Last Admin: 02/07/17 10:30 Dose: 10 mg Atorvastatin Calcium (Lipitor) 40 mg PO HS [facility] Last Admin: 02/06/17 21:45 Dose: 40 mg Enoxaparin Sodium (Lovenox) 30 mg SC Q12H [facility] PRN Reason: Protocol Last Admin: 02/07/17 11:48 Dose: Not Given Ergocalciferol (Drisdol 50,000 Intl Units Cap) 1 cap PO Q7D [facility] Last Admin: 02/07/17 10:34 Dose: 1 cap Ferrous Gluconate (Fergon) 324 mg PO TID [facility] Last Admin: 02/07/17 14:04 Dose: Not Given Hydralazine HCl (Apresoline) 25 mg PO QID PRN PRN Reason: Other Hydromorphone HCl (Dilaudid) 0.5 mg IVP Q4H PRN PRN Reason: Pain, moderate (4-7) Last Admin: 02/07/17 12:24 Dose: 0.5 mg Insulin Detemir (Levemir) 44 unit SC HS [place] Insulin Human Lispro (Humalog Low) 0 units SC ACHS [facility] PRN Reason: Protocol Last Admin: 02/07/17 11:47 Dose: Not Given Insulin Human Lispro (Humalog) 34 units SC AC [facility] Last Admin: 02/07/17 11:47 Dose: Not Given Lactulose (Enulose) 20 gm PO TID [facility] Last Admin: 02/07/17 14:04 Dose: Not Given Levofloxacin (Levaquin) 250 mg PO DAILY [facility] PRN Reason: Protocol Stop: 02/16/17 10:01 Last Admin: 02/07/17 10:30 Dose: 250 mg Metoprolol Succinate (Toprol Xl) 25 mg PO DAILY [facility] Last Admin: 02/07/17 10:30 Dose: 25 mg Pantoprazole Sodium (Protonix Ec Tab) 40 mg PO DAILY [facility] Last Admin: 02/07/17 10:28 Dose: 40 mg Sodium Bicarbonate (Sodium Bicarbonate Tab) 1,300 mg PO BID [facility] Last Admin: 02/07/17 10:27 Dose: 1,300 mg Tamsulosin HCl (Flomax) 1 mg PO DAILY [facility] Last Admin: 02/07/17 10:28 Dose: 1 mg Venlafaxine HCl (Effexor Xr) 150 mg PO DAILY [facility] Last Admin: 02/07/17 10:30 Dose: 150 mg - Labs Labs: 02/07/17 06:30 02/07/17 06:30 PT 14.6 SECONDS (9.4-12.5) H 02/07/17 06:30 INR 1.32 (0.93-1.08) H 02/07/17 06:30 APTT 32.5 Seconds (25.1-36.5) 02/07/17 06:30
[2017-02-07] MEDS ORDERED: Sodium Chloride 0.9% 1,000 ML IV SCH (18:00)
--- NOTE | 2017-02-07 18:22 | PN ---
DATE: ENDO FOLLOWUP NOTE LOCATION: In room 571. SUBJECTIVE: This is a 56-year-old male with recent admission for cellulitis of the left leg and especially localized into below-knee amputation stump area and is now being followed closely for metabolic management. He continues to have marked insulin resistance with very hefty insulin requirements and persistent glycemic fluctuation as noted there of. His glycemic levels today have ranged from 205 mg/dL to 248 mg/dL. It was 196 mg/dL and it was that time last night. His latest chemistry showed BUN of 104, sodium of 136, potassium of 4.8, chloride of 107, CO2 of 17, glucose of 237, and creatinine 5.1. So at this time, we will modify and lower the basal insulin with Levemir to be lower to 44 units subcutaneous at bedtime daily to start tonight. We will titrate incrementally as indicated to optimize metabolic control. We will obtain serial chemistries and supplement accordingly as needed. We will also continue the prandial insulin given as Humalog at 34 units subcu t.i.d. before meals as ordered. We will continue to modify low-dose correction scale using Humalog insulin as ordered. We will titrate as indicated to optimize metabolic control. We will follow with you. Ania Hernandez MD
[2017-02-07] MEDS ORDERED: Midazolam 2 MG/2 ML VIAL ONE (18:23)
[2017-02-07] MEDS ORDERED: Bupivacaine 0.5% Inj(30mL) ONE (18:24)
[2017-02-07] MEDS ORDERED: Lidocaine 1% Inj (20ml) ONE (18:24)
--- NOTE | 2017-02-07 19:40 | PCM.SURG1 ---
Surgeon's Initial Post Op Note - Surgeon's Notes Surgeon: Dr. Santiago Diabetes Educator: Chikis PGY1 Type of Anesthesia: IV Sedation Pre-Operative Diagnosis: Left Lower Extremity wound infection Operative Findings: see op report Post-Operative Diagnosis: same Operation Performed: Left BKA stump wound debridement Specimen/Specimens Removed: wound culture Estimated Blood Loss: EBL {In ML}: 30 Blood Products Given: N/A Drains Used: Wound Vac Post-Op Condition: Good Date of Surgery/Procedure: 02/07/17 Time of Surgery/Procedure: 19:40
--- NOTE | 2017-02-07 19:41 | CP.PCM.PCO ---
Physician Communication Note - Physician Communication Note Physician Communication Note: OK to resume Anticoagulation from surgery standpoint
--- NOTE | 2017-02-07 20:25 | PN ---
DATE: 02/07/2017 SUBJECTIVE: The patient is in bed in no acute distress, nontoxic. PHYSICAL EXAMINATION: VITAL SIGNS: Temperature is 97, blood pressure is 150/70, respiratory 22, heart rate of 79. HEENT: Unremarkable. NECK: Supple. LUNGS: Have decreased breath sounds. HEART: Normal S1, S2. ABDOMEN: Soft, nontender. LABORATORY EXAMINATION: Reveals a white count is 8, hemoglobin of 9, platelets of 291. BUN of 104, creatinine of 5.1. Microbiology reveals the left leg cultures revealed a sensitive staph aureus. Review of orders reveals the patient to be on Levaquin. ASSESSMENT AND PLAN: A 56-year-old male with morbid obesity, BMI of 55, diabetes mellitus, renal disease, hypertension, left below the knee amputation and severe left stump sensitive Staphylococcus aureus cellulitis had developed a rash on Teflaro, unable to use penicillin now on p.o. Levaquin when EKG shows a QTC of 430. The adjustment is made for renal and the patient for incision and drainage of abscess and debridement, left stump today. We will follow with you. Kobe Brownlee MD
[2017-02-07] MEDS ORDERED: Insulin Detemir 100 units/ml Vial (Levemir) SC SCH (22:00)
[2017-02-08] MEDS: HYDROmorphone 0.5 mg/0.5 ml ISec IVP PRN ×5 (03:33→22:52)
[2017-02-08 06:46] LABS: HEMOGLOBIN 9.3 g/dL (14.0-18.0); MEAN CELL VOLUME 83.1 fl (80.0-105.0); MEAN CORPUSCULAR HEMOGLOBIN 27.1 pg (25.0-35.0); MEAN CORPUSCULAR HGB CONC 32.6 g/dl (31.0-37.0); MEAN PLATELET VOLUME 8.7 fl (7.0-11.0); RBC 3.43 10^6/uL (3.5-6.1); RED CELL DISTRIBUTION WIDTH 13.6 % (11.5-14.5); WHITE BLOOD COUNT 7.6 10^3/ul (4.5-11.0)
[2017-02-08 07:40] LABS: INR 1.24 (0.93-1.08); PROTHROMBIN TIME 13.7 SECONDS (9.4-12.5)
[2017-02-08 07:43] LABS: ALB/GLOB RATIO 0.7 (1.1-1.8); ALBUMIN 2.9 g/dL (3.0-4.8); ALT/SGPT 24 U/L (7-56); AST/SGOT 23 U/L (17-59); BLOOD UREA NITROGEN 112 mg/dL (7-21); CALCIUM 8.3 mg/dL (8.4-10.5); GFR AFRICAN-AMERICAN 15; GFR NON-AFRICAN AMERICAN 12
[2017-02-08] MEDS: Insulin Lispro 1 UNITS/0.01 ML SC SCH ×3 (07:43→17:18)
[2017-02-08] MEDS: Insulin Lispro (humaLOG) LOW Coverage SC SCH ×4 (07:44→22:54)
[2017-02-08] MEDS: Enoxaparin 30 mg Syringe SC SCH ×2 (07:44→22:53)
[2017-02-08] MEDS: Metoprolol Succinate 25 mg XL Tab PO SCH (09:34)
[2017-02-08] MEDS: Venlafaxine 75 mg ER Cap PO SCH (09:35)
[2017-02-08] MEDS: Pantoprazole 40 mg EC Tab PO SCH (09:35)
--- NOTE | 2017-02-08 10:08 | CP.PCM.PN ---
Subjective - Date & Time of Evaluation Date of Evaluation: 02/08/17 Time of Evaluation: 07:15 - Subjective Subjective: COG-PGY1 SURGERY PROGRESS NOTE Patient seen and evaluated this AM at bedside. No acute events reported overnight. Patient is s/p left BKA wound debridement with wound vac in place. Patient denies chest pain, shortness of breath, abdominal pain, nausea, vomiting , fever, chills. Patient indicates desire to go home vs. [facility]. Objective - Vital Signs/Intake and Output Vital Signs (last 24 hours): Temp Pulse Resp BP Pulse Ox 97.9 F 74 19 147/99 H 92 L 02/08/17 08:00 02/08/17 08:00 02/08/17 08:00 02/08/17 09:34 02/08/17 08:00 Intake and Output: 02/08/17 02/08/17 06:59 18:59 Intake Total 360 Output Total 500 Balance -140 - Medications Medications: Current Medications Amlodipine Besylate (Norvasc) 10 mg PO DAILY [facility] Last Admin: 02/08/17 09:34 Dose: 10 mg Atorvastatin Calcium (Lipitor) 40 mg PO [facility] Last Admin: 02/07/17 22:02 Dose: 40 mg Enoxaparin Sodium (Lovenox) 30 mg SC Q12H [facility] PRN Reason: Protocol Last Admin: 02/08/17 07:44 Dose: 30 mg Ergocalciferol (Drisdol 50,000 Intl Units Cap) 1 cap PO Q7D [facility] Last Admin: 02/07/17 10:34 Dose: 1 cap Ferrous Gluconate (Fergon) 324 mg PO TID [facility] Last Admin: 02/08/17 09:34 Dose: 324 mg Hydralazine HCl (Apresoline) 25 mg PO QID PRN PRN Reason: Other Hydromorphone HCl (Dilaudid) 0.5 mg IVP Q4H PRN PRN Reason: Pain, moderate (4-7) Last Admin: 02/08/17 07:48 Dose: 0.5 mg Insulin Detemir (Levemir) 44 unit SC [facility] Last Admin: 02/07/17 22:03 Dose: 44 unit Insulin Human Lispro (Humalog Low) 0 units SC [facility] PRN Reason: Protocol Last Admin: 02/08/17 07:44 Dose: Not Given Insulin Human Lispro (Humalog) 34 units SC AC [facility] Last Admin: 02/08/17 07:43 Dose: 34 units Lactulose (Enulose) 20 gm PO TID [facility] Last Admin: 02/08/17 09:34 Dose: 20 gm Levofloxacin (Levaquin) 250 mg PO DAILY [facility] PRN Reason: Protocol Stop: 02/16/17 10:01 Last Admin: 02/08/17 09:35 Dose: 250 mg Metoprolol Succinate (Toprol Xl) 25 mg PO DAILY [facility] Last Admin: 02/08/17 09:34 Dose: 25 mg Pantoprazole Sodium (Protonix Ec Tab) 40 mg PO DAILY [facility] Last Admin: 02/08/17 09:35 Dose: 40 mg Sodium Bicarbonate (Sodium Bicarbonate Tab) 1,300 mg PO BID [facility] Last Admin: 02/08/17 09:34 Dose: 1,300 mg Tamsulosin HCl (Flomax) 1 mg PO DAILY [facility] Last Admin: 02/08/17 09:34 Dose: 1 mg Venlafaxine HCl (Effexor Xr) 150 mg PO DAILY [facility] Last Admin: 02/08/17 09:35 Dose: 150 mg Warfarin Sodium (Coumadin) 10 mg PO 1800 [facility] Warfarin Sodium (Coumadin) 5 mg PO 1800 [facility] - Labs Labs: 02/08/17 06:15 02/08/17 06:15 PT 13.7 SECONDS (9.4-12.5) H 02/08/17 06:15 INR 1.24 (0.93-1.08) H 02/08/17 06:15 APTT 32.5 Seconds (25.1-36.5) 02/07/17 06:30 - Constitutional Appears: No Acute Distress - Head Exam Head Exam: ATRAUMATIC, NORMAL INSPECTION, NORMOCEPHALIC - Eye Exam Eye Exam: EOMI, PERRL - ENT Exam ENT Exam: Mucous Membranes Moist - Respiratory Exam Respiratory Exam: Clear to Ausculation Bilateral, NORMAL BREATHING PATTERN. absent: Rhonchi, Wheezes - Cardiovascular Exam Cardiovascular Exam: REGULAR RHYTHM, +S1, +S2 - GI/Abdominal Exam GI & Abdominal Exam: Soft, Normal Bowel Sounds. absent: Rigid, Tenderness - Extremities Exam Additional comments: RLE: Bandage in place, normal cap refill, LLE: BKA with surgical dressing in place, c/d/i, wound vac in place draining serosanguionous fluid, mild tender to palp, Wound 3x5 cm, Granulation tissue, retention suture x4, erythema - Neurological Exam Neurological Exam: Alert, Awake, Oriented x3 - Psychiatric Exam Psychiatric exam: Normal Affect, Normal Mood - Skin Skin Exam: Dry, Intact. absent: Rash Assessment and Plan - Assessment and Plan (Free Text) Assessment: 56 yo M s/p Left BKA with LLE BKA stump trauma and infection. Pt s/p wound debridement on 02/07/[address] Plan: - IV abx dc switched to Levaquin - Wound cx = gram + cocci - Repeat wound cx from surgery, f/u results - s/p I&D 02/07/2017 - Wound 3x5 cm, Granulation tissue, retention suture x4, erythema - Resume AC, INR today 1.24 - Cr elevated, improved over past 24H, renal following: per note: no emergent need for renal replacement yet - Medical management per primary - Potential DC today, will need home wound vac and Q3 dressing change - DW Dr. Jack Carmen PGY-1
[2017-02-08] MEDS ORDERED: Darbepoetin Alfa 60 mcg/ml Inj SC ONE (11:43)
[2017-02-08 12:06] LABS: COMPLEMENT C4 33.4 mg/dL (14.0-44.0)
[2017-02-08 12:30] LABS: HEPATITIS B SURFACE AG NEGATIVE (NEGATIVE)
[2017-02-08 12:48] LABS: HEPATITIS C ANTIBODY Negative (NEGATIVE)
--- NOTE | 2017-02-08 12:56 | CP.PCM.PN ---
Subjective - Date & Time of Evaluation Date of Evaluation: 02/08/17 Time of Evaluation: 12:52 - Subjective Subjective: Follow up Nephrology Consultation: Assessment: stable Acute Kidney Injury (N17.9) unclear etiology. 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 cr platueing. Kidney biopsy will be difficult due to morbid obesity and currently on coumadin. empiric treatment such as steroids also with risks/complications such as hyperglycemia, infection. hence watchful recovery is pursued at this time. Hypertension control with meds as ordered. hold ACEI/ARB due to KAI. also d/c HCTZ. start lasix 40 mg IVP daily. started phos binders Increased sodium bicarb 1300 tid. continue with iron supplements and dose of aranesp 02/08/17. weekly Vit D as ordered. agree with kayexylate prn lora catheter hopefully can be d/c in next 1-2 days. continue with flomax Monitor Input/Output, daily weights and renal function with basic metabolic panel Check iPTH, BROOK/DNA ab/ANCA/Hep B and C serology Check serum protein electrophoresis with immunofixation, kappa/lambda ratio Dose meds/antibiotics for reduced GFR. Avoid fleets enema/magnesium based laxatives. Avoid nephrotoxins/NSAIDs/ iodinated contrast (unless needed emergently) Glycemic control Further work up/management as per primary team Thanks for allowing me to participate in care of your patient. Will follow patient with you. Please call if any Qs. d/w primary team Dr Gomez Ventura Office: [phone] Chief Complaint; fall on left leg stump HPI: Pt is a 56 M with hx of diabetes Mellitus (35 years) with retinopathy, hypertension (30 years), morbid obesity, hx of PE on coumadin, left leg wound s/ p BKA in sep 2016 @ [facility], who was in a cruise presented with complaints of fall on left BKA stump and bleeding thereafter. he was also given IV antibiotics in cruise ? name of antibiotics. Denies chest pain, palpitation, c/o shortness of breath on lying down, has chronic leg swelling Denies OTC/herbal meds but was taking NSAIDs No recent iodinated contrast exposure. No obvious episodes of low BP. Physical Examination: General Appearance: Comfortable, in no acute respiratory distress, co-operative . morbid obesity Vitals reviewed and noted as below Head; Atraumatic, normocephalic ENT: no ulcers no thrush. Tongue is midline. Oropharynx: no rash or ulcers. EYES: Pupils are equal, round and reactive to light accommodation. Eye muscles and extraocular movement intact. Sclera is anicteric. Neck; supple no lymphadenopathy, no thyromegaly or bruit Lungs: Normal respiratory rate/effort. Breath sounds bilateral equal and clear except few basal crackles Heart: Normal rate. s1s2 normal. No rub or gallop. Extremities: left BKA in dressing. RLE in dressing. Neurological: Patient is alert, awake and oriented to person, place and time. No focal deficit. Strength bilateral appropriate and equal Skin: Warm and dry. Normal turgor. No rash. Palpitation: Normal elasticity for age Abdomen: Abdomen is soft. Bowel sounds +. There is no abdominal tenderness, no guarding/rigidity no organomegaly Psych: normal insight and normal affect/mood MSK: no joint tenderness or swelling. Digits and nails normal, no deformity : kidney or bladder not palpable Labs/imaging reviewed. Past medical history, past surgical history, family history, social history, allergy reviewed and noted as below Family hx: no hx of CKD. Rest non-contributory Objective - Vital Signs/Intake and Output Vital Signs (last 24 hours): Temp Pulse Resp BP Pulse Ox 97.9 F 74 19 147/99 H 92 L 02/08/17 08:00 02/08/17 08:00 02/08/17 08:00 02/08/17 09:34 02/08/17 08:00 Intake and Output: 02/08/17 02/08/17 06:59 18:59 Intake Total 360 Output Total 500 Balance -140 - Medications Medications: Current Medications Amlodipine Besylate (Norvasc) 10 mg PO DAILY [facility] Last Admin: 02/08/17 09:34 Dose: 10 mg Atorvastatin Calcium (Lipitor) 40 mg PO HS [facility] Last Admin: 02/07/17 22:02 Dose: 40 mg Calcium Acetate (Phoslo) 1,334 mg PO [facility] Enoxaparin Sodium (Lovenox) 30 mg SC Q12H [facility] PRN Reason: Protocol Last Admin: 02/08/17 07:44 Dose: 30 mg Ergocalciferol (Drisdol 50,000 Intl Units Cap) 1 cap PO Q7D [facility] Last Admin: 02/07/17 10:34 Dose: 1 cap Ferrous Gluconate (Fergon) 324 mg PO TID [facility] Last Admin: 02/08/17 09:34 Dose: 324 mg Hydralazine HCl (Apresoline) 25 mg PO QID PRN PRN Reason: Other Hydralazine HCl (Apresoline) 50 mg PO BID [facility] Hydromorphone HCl (Dilaudid) 0.5 mg IVP Q4H PRN PRN Reason: Pain, moderate (4-7) Last Admin: 02/08/17 11:51 Dose: 0.5 mg Insulin Detemir (Levemir) 44 unit SC [facility] Last Admin: 02/07/17 22:03 Dose: 44 unit Insulin Human Lispro (Humalog Low) 0 units SC [facility] PRN Reason: Protocol Last Admin: 02/08/17 11:36 Dose: Not Given Insulin Human Lispro (Humalog) 34 units SC AC [facility] Last Admin: 02/08/17 11:38 Dose: Not Given Lactulose (Enulose) 20 gm PO TID [facility] Last Admin: 02/08/17 09:34 Dose: 20 gm Levofloxacin (Levaquin) 250 mg PO DAILY [facility] PRN Reason: Protocol Stop: 02/16/17 10:01 Last Admin: 02/08/17 09:35 Dose: 250 mg Metoprolol Succinate (Toprol Xl) 25 mg PO DAILY [facility] Last Admin: 02/08/17 09:34 Dose: 25 mg Ondansetron HCl (Zofran Inj) 4 mg IVP Q4H PRN PRN Reason: Nausea/Vomiting Last Admin: 02/08/17 11:44 Dose: 4 mg Pantoprazole Sodium (Protonix Ec Tab) 40 mg PO DAILY [facility] Last Admin: 02/08/17 09:35 Dose: 40 mg Sodium Bicarbonate (Sodium Bicarbonate Tab) 1,300 mg PO TID [facility] Tamsulosin HCl (Flomax) 1 mg PO DAILY [facility] Last Admin: 02/08/17 09:34 Dose: 1 mg Venlafaxine HCl (Effexor Xr) 150 mg PO DAILY [facility] Last Admin: 02/08/17 09:35 Dose: 150 mg Warfarin Sodium (Coumadin) 10 mg PO 1800 [facility] Warfarin Sodium (Coumadin) 5 mg PO 1800 [facility] - Labs Labs: 02/08/17 06:15 02/08/17 06:15 PT 13.7 SECONDS (9.4-12.5) H 02/08/17 06:15 INR 1.24 (0.93-1.08) H 02/08/17 06:15 APTT 32.5 Seconds (25.1-36.5) 02/07/17 06:30
--- NOTE | 2017-02-08 13:20 | PN ---
SUBJECTIVE: I saw Joel resting comfortably this morning in bed. His left stump is bandaged. He has a wound VAC on. He had a procedure done by surgery yesterday for his wound. He is comfortable. He still has not gone to the bathroom yet. We are going to give him suppository this morning to see if it will help him go to the bathroom. He was comfortable, no pain. He is eating well. He is also talking about going home, when can he leave. He is on Apresoline, Coumadin now, Dilaudid, Drisdol, Dulcolax, Effexor, Enulose, iron, Flomax, insulin, Levaquin, Levemir, Lipitor, Lovenox, Norvasc, Protonix, sodium bicarb, Toprol, and Zofran. He has a few issues going on also. PHYSICAL EXAMINATION: VITAL SIGNS: Temp 97.9, pulse 74, blood pressure 141/77, respiratory rate 19, O2 sat 92% to 97%. HEENT: His head is atraumatic, normocephalic. His throat is moist. NECK: Supple. HEART: Regular rate. LUNGS: Decreased breath sounds but clear. ABDOMEN: Morbidly obese, soft, nontender. EXTREMITIES: Left BKA stump is with a wound VAC and bandage. He has +4/4 pitting edema. LABORATORY DATA: He has white count 7.6, hemoglobin 9.3, hematocrit 28.5, platelets are 268. His INR is 1.24, he is back on Coumadin. He has sodium 135, potassium 4.9, BUN is 112, creatinine 4.9. His blood sugar was 292. Calcium was 8.3, phosphorus 7.7, total bilirubin is 0.4, AST is 23, ALT is 24, alkaline phosphatase 163, total protein is 7.1. He has numerous problems. [place] is from the cruise ship. He had fallen. He has a wound and a contusion to the left stump, status post procedure with surgery. Now, he has got a wound VAC on it. He is morbidly obese at 490 pounds, acute renal failure, hypertension. Again, he is constipated. He has been seen by numerous doctors, Surgery, Infectious Disease, Renal, Endocrinology for his diabetes. I will increase his insulin again because his blood sugars are jumping high again. Continue with aggressive treatment and care on Joel Aguilar. Check of labs tomorrow. Pedrito Tee DO
--- NOTE | 2017-02-08 15:22 | PN ---
DATE: ENDOCRINOLOGY FOLLOWUP NOTE LOCATION: Room 571. SUBJECTIVE: This is a 56-year-old male with recent uncontrolled type 2 insulin requiring diabetes presenting here with left lower extremity cellulitis and below knee amputation stump infection, currently undergoing IV antibiotic management and local debridement procedures as noted thereof. His glycemic levels are fluctuating as noted and today's glucose values have ranged from 229 to 292 mg/dL. It was 295 at bedtime last night. Latest chemistry showed a BUN of 112, sodium 135, potassium 4.9, chloride 106, CO2 16, glucose 325, and creatinine 4.9. So at this time, we will modify once again his basal and bolus insulin regimen and increase the Levemir to 54 units subcutaneously at bedtime daily to start to tonight. We will continue the Humalog given as 34 units subcutaneous t.i.d. before meals as ordered. We will titrate incremental optimize metabolic control. We will also continue the low dose correction scale using Humalog insulin as given and we will continue the Humalog given as 34 units subcutaneous t.i.d. before meals . We will obtain serum chemistry and supplement accordingly as needed. We will follow. Ania Hernandez MD
--- NOTE | 2017-02-08 18:12 | PN ---
DATE: 02/08/2017 SUBJECTIVE: The patient is in bed, in no acute distress, nontoxic. OBJECTIVE: VITAL SIGNS: On exam, temperature is 98, blood pressure is 140/90, respiratory rate of 18. HEENT: Unremarkable. NECK: Supple. LUNGS: Have decreased breath sounds. HEART: Normal S1, S2. ABDOMINAL: Soft. LABORATORY EXAMINATION: Reveals a white count of 7.6 and BUN of 112, creatinine of 4.9. Left leg culture is sensitive to Staph aureus. Left stump cultures is sensitive to Staph aureus. Review of orders reveals the patient to be on Levaquin. I will adjust it for renal disease. ASSESSMENT AND PLAN: A 56-year-old male with morbid obesity, body mass index of 55 with diabetes mellitus, renal disease, hypertension, left below-knee amputation, and severe left stump sensitive Staphylococcus aureus cellulitis, status post debridement, developed a rash, on Teflaro, now on p.o. Levaquin. The patient's QTC is 430. We will follow closely with you. We will check on the operating room cultures from yesterday. Kobe Brownlee MD
[2017-02-08] MEDS: Insulin Detemir 100 units/ml Vial (Levemir) SC SCH (22:52)
[2017-02-09] MEDS: HYDROmorphone 0.5 mg/0.5 ml ISec IVP PRN ×3 (03:26→21:36)
[2017-02-09 07:36] LABS: HEMOGLOBIN 9.3 g/dL (14.0-18.0); MEAN CELL VOLUME 82.5 fl (80.0-105.0); MEAN CORPUSCULAR HEMOGLOBIN 26.7 pg (25.0-35.0); MEAN CORPUSCULAR HGB CONC 32.4 g/dl (31.0-37.0); MEAN PLATELET VOLUME 8.9 fl (7.0-11.0); RBC 3.48 10^6/uL (3.5-6.1); RED CELL DISTRIBUTION WIDTH 13.6 % (11.5-14.5); WHITE BLOOD COUNT 8.1 10^3/ul (4.5-11.0)
[2017-02-09 07:55] LABS: ALB/GLOB RATIO 0.7 (1.1-1.8); ALBUMIN 2.9 g/dL (3.0-4.8); CALCIUM 8.9 mg/dL (8.4-10.5)
--- NOTE | 2017-02-09 08:23 | CON ---
PULMONARY CONSULTATION DATE: 02/09/2017 REFERRING PHYSICIAN: Pedrito Tee DO REASON FOR CONSULTATION: Oxygen desaturation. HISTORY OF PRESENT ILLNESS: The patient is a 56-year-old chronically ill male, with past medical history significant for peripheral vascular disease, obesity, obstructive sleep apnea, status post left lrcxv-fwn-qtkf amputation, diabetes mellitus, hypertension, chronic renal disease, who presented to [facility] - transferred from the cruise ship - with worsening pain and erythema of his left brnrf-wwn-fyuu amputation stump. Apparently, while on the ship, the patient did fall - injuring his left adkjz-ykw-ecvn amputation stump. After the fall, there was worsening pain and erythema of the stump. The patient was then transferred to [facility] for additional evaluation and treatment. There is no history of shortness of breath at rest, dyspnea on exertion, cough, or sputum production. There is also no history of chest pain, coughing up of blood, or chest pain - made worse with deep respirations. There is no history of temperatures, chills or infectious exposure. There is no history of night sweats, weight loss or appetite change prior to the above events. No history of calf pains. No history of syncope or diaphoresis. The patient has traveled recently. REVIEW OF SYSTEMS: The patient is a chronic snorer with occasional daytime somnolence. There are no acute urinary symptoms. There is no history of nausea, vomiting or diarrhea. No new neurologic complaints. Rest of the review of systems is negative. ALLERGIES: TEFLARO AND LISINOPRIL. SOCIAL HISTORY: Negative for tobacco and negative for alcohol. FAMILY HISTORY: No inheritable diseases. HOME MEDICATIONS: Include Coumadin, Effexor, Flomax, omeprazole, Toprol, Cozaar, Lantus, NovoLog, Microzide and ferrous gluconate. PHYSICAL EXAMINATION GENERAL: The patient is awake and alert, conversive. He is not short of breath at rest. He appears comfortable. VITAL SIGNS: Temperature is 97.9, pulse 80, respirations 18, blood pressure 158/76. Oxygen saturation on room air is 92%. Oxygen saturation on nasal cannula is 97%. HEENT: Normocephalic and atraumatic. No JVD. CARDIOVASCULAR: Positive S1, S2. No S3 gallop. LUNGS: Clear bilaterally. EXTREMITIES: The left mzhjg-uzt-avqj amputation stump is now wrapped. The right leg reveals mild edema. No cyanosis or clubbing. The right calf is nontender to palpation. GI: Abdomen is soft, nontender and nondistended. Bowel sounds are positive. SKIN: No acute rash. NEUROLOGIC: Limited at the present time. PERTINENT LABORATORY DATA: Chest x-ray was done on 02/03/2017 and reviewed. There is no active disease. Echocardiogram was also done on 02/04/2017. The right ventricular systolic pressure is normal (17 mmHg). The right ventricle is also normal in size and normal in function. There are no signs of pulmonary hypertension. CBC: White count 7.6, hemoglobin 9.3, hematocrit 28.5, platelets of 268,000. Complete metabolic profile: Carbon dioxide 17, BUN 104, creatinine 5.1, glucose 237, calcium 8.2, alkaline phosphatase 179, albumin 2.9. Rest of the metabolic profiles within normal limits. IMPRESSION: 1. Left vttng-mvb-bkxh amputation stump infection. 2. Morbid obesity. 3. Obstructive sleep apnea. 4. Chronic renal disease. 5. Hypertension. 6. Diabetes mellitus. PLAN: I did discuss the case with the night nurse at length. I have also discussed the case with the patient at length, and reviewed the chart at length. The patient is a chronically ill 56-year-old male, who was transferred to [facility] - from the cruise ship - because of worsening pain and erythema of his left izdnq-zyy-mbzd amputation stump. The patient was admitted to the hospital and placed on antibiotic therapy - as per Infectious Disease. Input by Dr. Brownlee is noted. The patient does state that his left stump is feeling better. On extensive questioning, the patient offers no new or significant pulmonary symptoms. His oxygen saturation - on room air - is on the low side. However, these values may be normal for this patient. The patient is chronically on CPAP at night, and I will order that for him in the hospital. Unfortunately, his family took his machine back to [place]. I have asked him to speak to his today - to document the pressures that he uses at home. I have also ordered an arterial blood gas to be done later this morning. I am particularly interested in the carbon dioxide level - to try and discern whether this patient has obesity hypoventilation or Pickwickian Syndrome. On physical exam, his lungs remain clear. I would continue with the antibiotic coverage as per Infectious Disease. I would continue with the surgical evaluation. Input by Dr. Santiago is noted. Cardiology and Renal inputs are also noted. The patient is clinically improved - compared to the initial presentation. However, given the above history, his future status/prognosis does remain somewhat guarded. Additional pulmonary intervention will be based on the above results, as well as the clinical status of the patient. I will discuss the above with Dr. Tee in the next few moments. Thank you very much for this pulmonary consultation. Felipe Gibson MD MTDD
[2017-02-09] MEDS: Insulin Lispro 1 UNITS/0.01 ML SC SCH ×2 (08:39→14:07)
[2017-02-09] MEDS: Insulin Lispro (humaLOG) LOW Coverage SC SCH ×3 (08:40→22:04)
[2017-02-09 09:28] LABS: ARTERIAL BLOOD GAS HCO3 17.8 mmol/L (21-28); ARTERIAL BLOOD GAS HEMOGLOBIN 9.6 g/dL (11.7-17.4); ARTERIAL BLOOD GAS O2 CAPACITY 13.3 mL/dl (16-24); ARTERIAL BLOOD GAS O2 CONTENT 12.8 ML/dl (15-23); ARTERIAL BLOOD GAS PCO2 33 mm/Hg (35-45); ARTERIAL BLOOD GAS PH 7.34 (7.35-7.45); ARTERIAL BLOOD GAS TCO2 18.8 mmol.L (22-28)
[2017-02-09] MEDS: Enoxaparin 30 mg Syringe SC SCH ×2 (09:41→21:37)
[2017-02-09] MEDS: Venlafaxine 75 mg ER Cap PO SCH (09:44)
[2017-02-09] MEDS: Metoprolol Succinate 25 mg XL Tab PO SCH (10:15)
[2017-02-09] MEDS: Pantoprazole 40 mg EC Tab PO SCH (10:15)
--- NOTE | 2017-02-09 10:30 | CP.PCM.PN ---
Subjective - Date & Time of Evaluation Date of Evaluation: 02/09/17 Time of Evaluation: 07:50 - Subjective Subjective: [id number] SURGERY PROGRESS NOTE Patient seen and evaluated at bedside. No acute events reported overnight. Patient is s/p left BKA wound debridement with wound vac in place. Patient denies chest pain, shortness of breath, abdominal pain, nausea, vomiting, fever , chills. Objective - Vital Signs/Intake and Output Vital Signs (last 24 hours): Temp Pulse Resp BP Pulse Ox 97.8 F 82 20 168/96 H 93 L 02/09/17 08:00 02/09/17 08:00 02/09/17 08:00 02/09/17 09:43 02/09/17 08:00 Intake and Output: 02/09/17 02/09/17 06:59 18:59 Intake Total 240 Output Total 900 Balance -660 - Medications Medications: Current Medications Amlodipine Besylate (Norvasc) 10 mg PO DAILY [facility] Last Admin: 02/08/17 09:34 Dose: 10 mg Atorvastatin Calcium (Lipitor) 40 mg PO HS [facility] Last Admin: 02/08/17 22:52 Dose: 40 mg Calcium Acetate (Phoslo) 1,334 mg PO WM [facility] Last Admin: 02/09/17 08:40 Dose: 1,334 mg Enoxaparin Sodium (Lovenox) 30 mg SC Q12H [facility] PRN Reason: Protocol Last Admin: 02/09/17 09:41 Dose: 30 mg Ergocalciferol (Drisdol 50,000 Intl Units Cap) 1 cap PO Q7D [facility] Last Admin: 02/07/17 10:34 Dose: 1 cap Ferrous Gluconate (Fergon) 324 mg PO TID [facility] Last Admin: 02/08/17 17:22 Dose: 324 mg Furosemide (Lasix) 40 mg IVP DAILY [facility] Last Admin: 02/09/17 09:43 Dose: 40 mg Hydralazine HCl (Apresoline) 25 mg PO QID PRN PRN Reason: Other Hydromorphone HCl (Dilaudid) 0.5 mg IVP Q4H [facility] PRN Reason: Pain, moderate (4-7) Last Admin: 02/09/17 09:41 Dose: 0.5 mg Insulin Detemir (Levemir) 54 unit SC [facility] Last Admin: 02/08/17 22:52 Dose: 54 unit Insulin Human Lispro (Humalog Low) 0 units SC [facility] PRN Reason: Protocol Last Admin: 02/09/17 08:40 Dose: Not Given Insulin Human Lispro (Humalog) 34 units SC AC [facility] Last Admin: 02/09/17 08:39 Dose: 34 units Lactulose (Enulose) 20 gm PO TID [facility] Last Admin: 02/09/17 09:43 Dose: 20 gm Levofloxacin (Levaquin) 250 mg PO DAILY [facility] PRN Reason: Protocol Stop: 02/16/17 10:01 Last Admin: 02/08/17 09:35 Dose: 250 mg Metoprolol Succinate (Toprol Xl) 25 mg PO DAILY [facility] Last Admin: 02/08/17 09:34 Dose: 25 mg Ondansetron HCl (Zofran Inj) 4 mg IVP Q4H PRN PRN Reason: Nausea/Vomiting Last Admin: 02/09/17 09:43 Dose: 4 mg Pantoprazole Sodium (Protonix Ec Tab) 40 mg PO DAILY [facility] Last Admin: 02/08/17 09:35 Dose: 40 mg Sodium Bicarbonate (Sodium Bicarbonate Tab) 1,300 mg PO TID [facility] Last Admin: 02/08/17 17:21 Dose: 1,300 mg Tamsulosin HCl (Flomax) 1 mg PO DAILY [facility] Last Admin: 02/09/17 09:44 Dose: 1 mg Venlafaxine HCl (Effexor Xr) 150 mg PO DAILY [facility] Last Admin: 02/09/17 09:44 Dose: 150 mg Warfarin Sodium (Coumadin) 10 mg PO 1800 [facility] Last Admin: 02/08/17 17:21 Dose: 10 mg Warfarin Sodium (Coumadin) 5 mg PO 1800 [facility] Last Admin: 02/08/17 17:21 Dose: 5 mg - Labs Labs: 02/09/17 06:45 02/09/17 06:45 PT 13.7 SECONDS (9.4-12.5) H 02/08/17 06:15 INR 1.24 (0.93-1.08) H 02/08/17 06:15 APTT 32.5 Seconds (25.1-36.5) 02/07/17 06:30 - Constitutional Appears: No Acute Distress - Head Exam Head Exam: ATRAUMATIC, NORMAL INSPECTION, NORMOCEPHALIC - Eye Exam Eye Exam: EOMI, PERRL - ENT Exam ENT Exam: Mucous Membranes Moist - Respiratory Exam Respiratory Exam: Clear to Ausculation Bilateral, NORMAL BREATHING PATTERN - Cardiovascular Exam Cardiovascular Exam: REGULAR RHYTHM, +S1, +S2 - GI/Abdominal Exam GI & Abdominal Exam: Soft, Normal Bowel Sounds. absent: Guarding, Rigid - Extremities Exam Additional comments: RLE: Bandage in place, normal cap refill, LLE: BKA with surgical dressing in place, c/d/i, wound vac in place draining serosanguionous fluid, mild tender to palp, Wound 3x5 cm, Granulation tissue, retention suture x4, erythema - Neurological Exam Neurological Exam: Alert, Awake, Oriented x3 - Psychiatric Exam Psychiatric exam: Normal Affect, Normal Mood - Skin Skin Exam: Dry, Intact, Normal Color, Warm Assessment and Plan - Assessment and Plan (Free Text) Assessment: 56 yo M s/p Left BKA with LLE BKA stump trauma and infection. Pt s/p wound debridement on 02/07/[address] Plan: - IV abx dc switched to Levaquin D4/10 - Wound cx = gram + cocci - Repeat wound cx from surgery, f/u results - s/p I&D 02/07/2017 - Wound 3x5 cm, Granulation tissue, retention suture x4, erythema - Cr elevated, trending downward, renal following: per note: no emergent need for renal replacement yet - Medical management per primary - Potential DC today, will need home wound vac and Q3 dressing change - DW Dr. Jack Carmen PGY-1
[2017-02-09 11:36] LABS: ALBUMIN (PEP) 2.4 g/dL (3.8-4.8); ALPHA-1-GLOBULIN (PEP) 0.4 g/dL (0.2-0.3)
--- NOTE | 2017-02-09 11:36 | PN ---
SUBJECTIVE: He is resting comfortably in bed. He had a bowel movement after a week, that is very good, he feels more comfortable. The left stump is still in a wound VAC and bandaged it up. He is feeling overall well, concerned about his kidneys. MEDICATIONS: He is on Apresoline, Coumadin, Dilaudid, Drisdol, Effexor, Enulose, Fergon, Flomax, insulin, Lasix, Levaquin, Levemir, Lipitor, Lovenox, Norvasc, Flagyl, Protonix, sodium bicarbonate, Toprol, and Zofran. PHYSICAL EXAMINATION: GENERAL: He is alert. He is comfortable, no pain. VITAL SIGNS: Temp 97.9, pulse 74, blood pressure 141/77, respiratory rate 19, and 92% O2 sat on room air. He is 490 pounds. HEENT: Head is atraumatic, normocephalic. HEART: Regular rate. LUNGS: Decreased breath sounds, but clear. ABDOMEN: Soft, morbidly obese, nontender. EXTREMITIES: Very edematous and he has left BKA stump after surgery with Dr. Santiago and a wound VAC. LABORATORY DATA: He has white count 8.1, hemoglobin 9.3, hematocrit 28.7 with platelets 283,000. INR 1.24, we are giving him Coumadin. He is on Lovenox and we are trying to get his INR above 2. He has a sodium is 138, potassium 4.6, BUN is 113, creatinine is 4.2, still quite high, he might need dialysis. Blood sugar is 192, calcium is 8.9, phosphorus 6.9, total bilirubin is 0.4, AST is 17, ALT is 30, alkaline phosphatase 151, and total protein 7.1. I had a long discussion with his yesterday. His hepatitis screen is negative. They wanted to take him to a facility up in [place], they will have to contact web content & social media manager, I told him to do that, so they can arrange for transportation to a place in [facility] where they live. He might need dialysis, it depends on what renal says watching his kidney function. He is here for numerous reasons, left stump wound from trauma, diabetes, acute renal failure, obesity, constipation. Asked the web content & social media manager and renal to finalize this treatment. I will need to have a wound VAC up there too. He from the cruise ship. Pedrito Tee DO
--- NOTE | 2017-02-09 15:40 | CP.PCM.PN ---
Subjective - Date & Time of Evaluation Date of Evaluation: 02/09/17 Time of Evaluation: 15:38 - Subjective Subjective: Follow up Nephrology Consultation: Assessment: stable Acute Kidney Injury (N17.9) unclear etiology. 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 cr improving. Kidney biopsy will be difficult due to morbid obesity and currently on coumadin. empiric treatment such as steroids also with risks/complications such as hyperglycemia, infection, impaired worund healing. hence watchful recovery is pursued at this time. Hypertension control with meds as ordered. hold ACEI/ARB due to KIA. also d/c HCTZ. increased lasix 40 mg IVP bid. started phos binders Increased sodium bicarb 1300 tid. continue with iron supplements and dose of aranesp 02/08/17. weekly Vit D as ordered. agree with kayexylate prn lora catheter hopefully can be d/c in next 1-2 days. continue with flomax Monitor Input/Output, daily weights and renal function with basic metabolic panel Check DNA ab/ANCA, kappa/lambda ratio Dose meds/antibiotics for reduced GFR. Avoid fleets enema/magnesium based laxatives. Avoid nephrotoxins/NSAIDs/ iodinated contrast (unless needed emergently) Glycemic control Further work up/management as per primary team Thanks for allowing me to participate in care of your patient. Will follow patient with you. Please call if any Qs. d/w primary team. had d/w on phone Dr Gomez Ventura Office: [phone] Chief Complaint; fall on left leg stump HPI: Pt is a 56 M with hx of diabetes Mellitus (35 years) with retinopathy, hypertension (30 years), morbid obesity, hx of PE on coumadin, left leg wound s/ p BKA in sep 2016 @ [facility], who was in a cruise presented with complaints of fall on left BKA stump and bleeding thereafter. he was also given IV antibiotics in cruise ? name of antibiotics. Denies chest pain, palpitation, c/o shortness of breath on lying down, has chronic leg swelling Denies OTC/herbal meds but was taking NSAIDs No recent iodinated contrast exposure. No obvious episodes of low BP. Physical Examination: General Appearance: Comfortable, in no acute respiratory distress, co-operative . morbid obesity Vitals reviewed and noted as below Head; Atraumatic, normocephalic ENT: no ulcers no thrush. Tongue is midline. Oropharynx: no rash or ulcers. EYES: Pupils are equal, round and reactive to light accommodation. Eye muscles and extraocular movement intact. Sclera is anicteric. Neck; supple no lymphadenopathy, no thyromegaly or bruit Lungs: Normal respiratory rate/effort. Breath sounds bilateral equal and decreased at bases Heart: Normal rate. s1s2 normal. No rub or gallop. Extremities: left BKA in dressing. RLE in dressing. Neurological: Patient is alert, awake and oriented to person, place and time. No focal deficit. Strength bilateral appropriate and equal Skin: Warm and dry. Normal turgor. No rash. Palpitation: Normal elasticity for age Abdomen: Abdomen is soft. Bowel sounds +. There is no abdominal tenderness, no guarding/rigidity no organomegaly Psych: normal insight and normal affect/mood MSK: no joint tenderness or swelling. Digits and nails normal, no deformity : kidney or bladder not palpable Labs/imaging reviewed. Past medical history, past surgical history, family history, social history, allergy reviewed and noted as below Family hx: no hx of CKD. Rest non-contributory Objective - Vital Signs/Intake and Output Vital Signs (last 24 hours): Temp Pulse Resp BP Pulse Ox 97.8 F 82 20 168/96 H 93 L 02/09/17 08:00 02/09/17 10:15 02/09/17 08:00 02/09/17 10:16 02/09/17 08:00 Intake and Output: 02/09/17 02/09/17 06:59 18:59 Intake Total 240 Output Total 900 Balance -660 - Medications Medications: Current Medications Amlodipine Besylate (Norvasc) 10 mg PO DAILY [facility] Last Admin: 02/09/17 10:16 Dose: 10 mg Atorvastatin Calcium (Lipitor) 40 mg PO HS [facility] Last Admin: 02/08/17 22:52 Dose: 40 mg Calcium Acetate (Phoslo) 1,334 mg PO WM [facility] Last Admin: 02/09/17 13:24 Dose: 1,334 mg Enoxaparin Sodium (Lovenox) 30 mg SC Q12H [facility] PRN Reason: Protocol Last Admin: 02/09/17 09:41 Dose: 30 mg Ergocalciferol (Drisdol 50,000 Intl Units Cap) 1 cap PO Q7D [facility] Last Admin: 02/07/17 10:34 Dose: 1 cap Ferrous Gluconate (Fergon) 324 mg PO TID [facility] Last Admin: 02/09/17 14:06 Dose: 324 mg Furosemide (Lasix) 40 mg IVP BID [facility] Hydralazine HCl (Apresoline) 25 mg PO QID PRN PRN Reason: Other Hydromorphone HCl (Dilaudid) 0.5 mg IVP Q4H PRN PRN Reason: Pain, moderate (4-7) Last Admin: 02/09/17 09:41 Dose: 0.5 mg Insulin Detemir (Levemir) 54 unit SC [facility] Last Admin: 02/08/17 22:52 Dose: 54 unit Insulin Human Lispro (Humalog Low) 0 units SC [facility] PRN Reason: Protocol Last Admin: 02/09/17 14:08 Dose: Not Given Insulin Human Lispro (Humalog) 34 units SC AC [facility] Last Admin: 02/09/17 14:07 Dose: Not Given Lactulose (Enulose) 20 gm PO TID [facility] Last Admin: 02/09/17 14:06 Dose: 20 gm Levofloxacin (Levaquin) 250 mg PO DAILY [facility] PRN Reason: Protocol Stop: 02/16/17 10:01 Last Admin: 02/09/17 10:15 Dose: 250 mg Metoprolol Succinate (Toprol Xl) 25 mg PO DAILY [facility] Last Admin: 02/09/17 10:15 Dose: 25 mg Ondansetron HCl (Zofran Inj) 4 mg IVP Q4H PRN PRN Reason: Nausea/Vomiting Last Admin: 02/09/17 14:06 Dose: 4 mg Pantoprazole Sodium (Protonix Ec Tab) 40 mg PO DAILY [facility] Last Admin: 02/09/17 10:15 Dose: 40 mg Sodium Bicarbonate (Sodium Bicarbonate Tab) 1,300 mg PO TID [facility] Last Admin: 02/09/17 14:06 Dose: 1,300 mg Tamsulosin HCl (Flomax) 1 mg PO DAILY [facility] Last Admin: 02/09/17 09:44 Dose: 1 mg Venlafaxine HCl (Effexor Xr) 150 mg PO DAILY [facility] Last Admin: 02/09/17 09:44 Dose: 150 mg Warfarin Sodium (Coumadin) 10 mg PO 1800 [facility] Last Admin: 02/08/17 17:21 Dose: 10 mg Warfarin Sodium (Coumadin) 5 mg PO 1800 [facility] Last Admin: 02/08/17 17:21 Dose: 5 mg - Labs Labs: 02/09/17 06:45 02/09/17 06:45 PT 13.7 SECONDS (9.4-12.5) H 02/08/17 06:15 INR 1.24 (0.93-1.08) H 02/08/17 06:15 APTT 32.5 Seconds (25.1-36.5) 02/07/17 06:30
[2017-02-09] MEDS: Insulin Detemir 100 units/ml Vial (Levemir) SC SCH (21:37)
--- NOTE | 2017-02-10 00:49 | PN ---
DATE: 02/09/2017 SUBJECTIVE: The patient is in bed, in no acute distress, nontoxic. PHYSICAL EXAMINATION: VITAL SIGNS: Temperature is 98, blood pressure is 170/70, and respiratory rate is 16. HEENT: Unremarkable. NECK: Supple. LUNGS: Have decreased breath sounds. HEART: Normal S1 and S2. ABDOMEN: Soft. LABORATORY DATA: Reveals the patient's white count to be 8.1 and hemoglobin of 9. Chemistries are noted. Hepatitis profile is negative. ASSESSMENT AND PLAN: A 56-year-old male, with morbid obesity with body mass index of 55, hypertension, and left below-knee amputation, admitted with severe left stump infection with sensitive Staphylococcus aureus cellulitis and developed a rash, on Teflaro. Currently on Levaquin with QTc interval of 430. We will follow with you. Kobe Brownlee MD
--- NOTE | 2017-02-10 06:32 | CP.PCM.PN ---
Subjective - Date & Time of Evaluation Date of Evaluation: 02/10/17 Time of Evaluation: 06:28 - Subjective Subjective: Patient was seen at bedside. Complains of chest pressure, never had like this before, has been present for about 1 1/2 hour, is across anterior chest , no radiation, has little nausea and little shortness of breath. Denies sweating ,palpitation, cough. This 56 year old white male was admitted [place] a cruise ship with bloody left BKA stump, ulcer. Has PMH of dM,HTN, depression ,BPH, GERD, cHF, HLD, left BKA. Objective - Vital Signs/Intake and Output Vital Signs (last 24 hours): Temp Pulse Resp BP Pulse Ox 99 F 86 18 177/77 H 93 L 02/09/17 19:00 02/10/17 02:05 02/09/17 19:00 02/09/17 19:00 02/10/17 02:05 178/82,98.4*,88,20 93% on RA. Intake and Output: 02/09/17 02/10/17 18:59 06:59 Intake Total 480 Output Total 1450 Balance -970 - Medications Medications: Current Medications Amlodipine Besylate (Norvasc) 10 mg PO DAILY [facility] Last Admin: 02/09/17 10:16 Dose: 10 mg Atorvastatin Calcium (Lipitor) 40 mg PO HS [facility] Last Admin: 02/09/17 21:38 Dose: Not Given Calcium Acetate (Phoslo) 1,334 mg PO WM [facility] Last Admin: 02/09/17 18:57 Dose: 1,334 mg Enoxaparin Sodium (Lovenox) 30 mg SC Q12H [facility] PRN Reason: Protocol Last Admin: 02/09/17 21:37 Dose: 30 mg Ergocalciferol (Drisdol 50,000 Intl Units Cap) 1 cap PO Q7D [facility] Last Admin: 02/07/17 10:34 Dose: 1 cap Ferrous Gluconate (Fergon) 324 mg PO TID [facility] Last Admin: 02/09/17 18:58 Dose: 324 mg Furosemide (Lasix) 40 mg IVP BID [facility] Last Admin: 02/09/17 18:58 Dose: 40 mg Hydralazine HCl (Apresoline) 25 mg PO QID PRN PRN Reason: Other Hydromorphone HCl (Dilaudid) 0.5 mg IVP Q4H PRN PRN Reason: Pain, moderate (4-7) Last Admin: 02/09/17 21:36 Dose: 0.5 mg Insulin Detemir (Levemir) 54 unit SC HS [facility] Last Admin: 02/09/17 21:37 Dose: Not Given Insulin Human Lispro (Humalog Low) 0 units SC ACHS [facility] PRN Reason: Protocol Last Admin: 02/09/17 22:04 Dose: Not Given Insulin Human Lispro (Humalog) 34 units SC AC [facility] Last Admin: 02/09/17 14:07 Dose: Not Given Lactulose (Enulose) 20 gm PO TID [facility] Last Admin: 02/09/17 18:57 Dose: 20 gm Levofloxacin (Levaquin) 250 mg PO DAILY [facility] PRN Reason: Protocol Stop: 02/16/17 10:01 Last Admin: 02/09/17 10:15 Dose: 250 mg Metoprolol Succinate (Toprol Xl) 25 mg PO DAILY [facility] Last Admin: 02/09/17 10:15 Dose: 25 mg Nitroglycerin (Nitrostat Sl Tab) 0.6 mg SL Q5M PRN PRN Reason: chest pain Stop: 02/10/17 06:41 Ondansetron HCl (Zofran Inj) 4 mg IVP Q4H PRN PRN Reason: Nausea/Vomiting Last Admin: 02/09/17 21:36 Dose: 4 mg Pantoprazole Sodium (Protonix Ec Tab) 40 mg PO DAILY [facility] Last Admin: 02/09/17 10:15 Dose: 40 mg Sodium Bicarbonate (Sodium Bicarbonate Tab) 1,300 mg PO TID [facility] Last Admin: 02/09/17 18:58 Dose: 1,300 mg Tamsulosin HCl (Flomax) 1 mg PO DAILY [facility] Last Admin: 02/09/17 09:44 Dose: 1 mg Topiramate (Topamax) 200 mg PO ONCE ONE PRN Reason: Protocol Stop: 02/10/17 06:28 Venlafaxine HCl (Effexor Xr) 150 mg PO DAILY [facility] Last Admin: 02/09/17 09:44 Dose: 150 mg Warfarin Sodium (Coumadin) 10 mg PO 1800 [facility] Last Admin: 02/09/17 18:59 Dose: 10 mg Warfarin Sodium (Coumadin) 5 mg PO 1800 [facility] Last Admin: 02/09/17 18:59 Dose: 5 mg - Labs Labs: 02/09/17 06:45 02/09/17 06:45 PT 13.7 SECONDS (9.4-12.5) H 02/08/17 06:15 INR 1.24 (0.93-1.08) H 02/08/17 06:15 APTT 32.5 Seconds (25.1-36.5) 02/07/17 06:30 Assessment and Plan - Assessment and Plan (Free Text) Assessment: Chest pressure. R/O cardiac event. Infection Left BKA stump. HTN. DM. Depression. CHF. GERD.HLD. Plan: EKG stat & q6h.--->NSR.QIII. Troponin stat along with this AM labs plus q6h. Oxygen by nasal canula at 3L/min. NTG 0.6mg SL q5m prn chest pain. If that does not help will give topiramate 200 mg PO x1. F/U by cardiology today.
[2017-02-10] MEDS: Nitroglycerin 0.6 mg SL Tab SL PRN ×3 (06:36→06:47)
[2017-02-10 07:09] LABS: ALB/GLOB RATIO 0.7 (1.1-1.8); ALBUMIN 2.9 g/dL (3.0-4.8)
[2017-02-10 07:14] LABS: HEMOGLOBIN 9.3 g/dL (14.0-18.0); MEAN CELL VOLUME 82.9 fl (80.0-105.0); MEAN CORPUSCULAR HGB CONC 32.5 g/dl (31.0-37.0); MEAN PLATELET VOLUME 9.2 fl (7.0-11.0); RBC 3.45 10^6/uL (3.5-6.1); RED CELL DISTRIBUTION WIDTH 13.9 % (11.5-14.5)
--- NOTE | 2017-02-10 08:35 | PN ---
DATE: 02/10/2017 PULMONARY NOTE SUBJECTIVE: The patient appears comfortable this morning. He is not short of breath at rest. He does complain of some chest "heaviness." OBJECTIVE: VITALS: Last temperature recorded is 99, pulse this morning 88, respiratory rate 18, last blood pressure recorded 177/77. Oxygen saturation on room air 93%. Oxygen saturation on nasal cannula is 98%. HEENT: Normocephalic, atraumatic. No JVD. CARDIOVASCULAR: Positive S1, S2. No S3 gallop. LUNGS: Clear bilaterally. EXTREMITIES: The left [id number] amputation stump is now wrapped. The right leg reveals mild edema. No cyanosis or clubbing. The right calf is nontender to palpation. GI: Abdomen is soft, nontender, and nondistended. Bowel sounds are positive. SKIN: No acute rash. NEUROLOGIC: Limited at the present time. PERTINENT LABORATORY DATA: Arterial blood gas was done yesterday on nasal cannula. Results are: PH 7.34, pCO2 of 33, pO2 of 74. IMPRESSION: 1. Left ozpvz-[id number]-fmyn amputation stump infection. 2. Morbid obesity. 3. Obstructive sleep apnea. 4. Chronic renal disease. 5. Hypertension. 6. Diabetes mellitus. PLAN: The patient appears comfortable this morning. He is not short of breath at rest. He does complain of some chest "heaviness" this morning. I did discuss the case with Dr. Summers (house physician) at length. Labs are ordered. EKG is also ordered. On physical exam, his lungs remain clear. I did review the arterial blood gas from yesterday. The pH is normal, and there is no carbon dioxide retention. There is a mild increase in the alveolar-arterial gradient - which may be chronic for this patient. Continue CPAP at night. I would continue with the antibiotic coverage as per Infectious Disease. I would continue with the surgical evaluation. Inputs are noted. Cardiology evaluation with Dr. Vora is also noted. Clinical status of the patient is improved - compared to the initial presentation. I will discuss the above with Dr. Tee. Felipe Gibson MD [facility] # [id number] MTDD
[2017-02-10] MEDS: Insulin Lispro 1 UNITS/0.01 ML SC SCH ×3 (08:39→18:58)
[2017-02-10] MEDS: Insulin Lispro (humaLOG) LOW Coverage SC SCH ×5 (08:40→22:29)
[2017-02-10] MEDS: Enoxaparin 30 mg Syringe SC SCH (08:40)
--- NOTE | 2017-02-10 08:49 | PN ---
ENDOCRINOLOGY FOLLOWUP NOTE DATE: 02/09/2017 LOCATION: Room 571. SUBJECTIVE: This is a 56-year-old male with recent uncontrolled type 2 insulin-requiring diabetes with marked insulin resistance and underlying morbid obesity presenting here with a left below-knee amputation stump infection and adjacent cellulitis and is now being followed closely for metabolic management. His glycemic levels are fluctuating, but improved and the latest glucose levels have ranged from 165 to 192 mg/dL. The latest chemistry showed a BUN of 113, sodium 138, potassium 4.6, chloride 109, CO2 of 18, glucose 207, and creatinine 4.2. She also has underlying chronic kidney disease with progressive renal insufficiency with superimposed acute kidney injury from nonsteroidal anti-inflammatory use at this time. His latest CO2 is also declining indicative of underlying metabolic acidosis from progressive renal insufficiency as noted thereof. So, at this time to allow for dose equilibration, we will continue the same basal and bolus insulin regimen as ordered with Levemir given as 54 units subcutaneously at bedtime daily as ordered and given. We will continue his Humalog given as 34 units subcutaneously t.i.d. before meals as ordered. We will titrate incrementals as indicated to optimize metabolic control. Would expect hefty insulin requirements with the underlying morbid obesity and increased insulin resistance thereof. We will obtain serial chemistries and supplement accordingly as needed. We will follow. Ania Hernandez MD
--- NOTE | 2017-02-10 10:27 | CP.PCM.PN ---
Subjective - Date & Time of Evaluation Date of Evaluation: 02/10/17 Time of Evaluation: 07:10 - Subjective Subjective: [id number] SURGERY PROGRESS NOTE Patient seen and evaluated at bedside. Patient reportedly had chest discomfort/ tightness and serial troponins and EKG's were ordered. Patient is s/p left BKA wound debridement , POD3, wound vac discontinued at bedside. Wound cleaned and dressed at bedside. Patient denies chest pain, shortness of breath, abdominal pain, nausea, vomiting, fever, chills. Objective - Vital Signs/Intake and Output Vital Signs (last 24 hours): Temp Pulse Resp BP Pulse Ox 98.4 F 88 20 178/82 H 93 L 02/10/17 08:00 02/10/17 08:00 02/10/17 08:00 02/10/17 08:00 02/10/17 08:00 Intake and Output: 02/10/17 02/10/17 06:59 18:59 Intake Total 480 Output Total 1600 Balance -1120 - Medications Medications: Current Medications Amlodipine Besylate (Norvasc) 10 mg PO DAILY [facility] Last Admin: 02/09/17 10:16 Dose: 10 mg Atorvastatin Calcium (Lipitor) 40 mg PO HS [facility] Last Admin: 02/09/17 21:38 Dose: Not Given Calcium Acetate (Phoslo) 1,334 mg PO WM [facility] Last Admin: 02/10/17 08:38 Dose: 1,334 mg Enoxaparin Sodium (Lovenox) 30 mg SC Q12H [facility] PRN Reason: Protocol Last Admin: 02/10/17 08:40 Dose: 30 mg Ergocalciferol (Drisdol 50,000 Intl Units Cap) 1 cap PO Q7D [facility] Last Admin: 02/07/17 10:34 Dose: 1 cap Ferrous Gluconate (Fergon) 324 mg PO TID [facility] Last Admin: 02/09/17 18:58 Dose: 324 mg Furosemide (Lasix) 40 mg IVP BID [facility] Last Admin: 02/09/17 18:58 Dose: 40 mg Hydralazine HCl (Apresoline) 25 mg PO QID PRN PRN Reason: Other Hydromorphone HCl (Dilaudid) 0.5 mg IVP Q4H PRN PRN Reason: Pain, moderate (4-7) Last Admin: 02/09/17 21:36 Dose: 0.5 mg Insulin Detemir (Levemir) 54 unit SC HS [facility] Last Admin: 02/09/17 21:37 Dose: Not Given Insulin Human Lispro (Humalog Low) 0 units SC ACHS [facility] PRN Reason: Protocol Last Admin: 02/10/17 08:40 Dose: Not Given Insulin Human Lispro (Humalog) 34 units SC AC [facility] Last Admin: 02/10/17 08:39 Dose: 34 units Lactulose (Enulose) 20 gm PO TID [facility] Last Admin: 02/09/17 18:57 Dose: 20 gm Levofloxacin (Levaquin) 250 mg PO DAILY [facility] PRN Reason: Protocol Stop: 02/16/17 10:01 Last Admin: 02/09/17 10:15 Dose: 250 mg Metoprolol Succinate (Toprol Xl) 25 mg PO DAILY [facility] Last Admin: 02/09/17 10:15 Dose: 25 mg Ondansetron HCl (Zofran Inj) 4 mg IVP Q4H PRN PRN Reason: Nausea/Vomiting Last Admin: 02/09/17 21:36 Dose: 4 mg Pantoprazole Sodium (Protonix Ec Tab) 40 mg PO DAILY [facility] Last Admin: 02/09/17 10:15 Dose: 40 mg Sodium Bicarbonate (Sodium Bicarbonate Tab) 1,300 mg PO TID [facility] Last Admin: 02/09/17 18:58 Dose: 1,300 mg Tamsulosin HCl (Flomax) 1 mg PO DAILY [facility] Last Admin: 02/09/17 09:44 Dose: 1 mg Venlafaxine HCl (Effexor Xr) 150 mg PO DAILY [facility] Last Admin: 02/09/17 09:44 Dose: 150 mg Warfarin Sodium (Coumadin) 10 mg PO 1800 [facility] Last Admin: 02/09/17 18:59 Dose: 10 mg Warfarin Sodium (Coumadin) 5 mg PO 1800 [facility] Last Admin: 02/09/17 18:59 Dose: 5 mg - Labs Labs: 02/10/17 06:15 02/10/17 06:15 PT 13.7 SECONDS (9.4-12.5) H 02/08/17 06:15 INR 1.24 (0.93-1.08) H 02/08/17 06:15 APTT 32.5 Seconds (25.1-36.5) 02/07/17 06:30 - Constitutional Appears: No Acute Distress - Head Exam Head Exam: ATRAUMATIC, NORMAL INSPECTION, NORMOCEPHALIC - Eye Exam Eye Exam: EOMI, PERRL - ENT Exam ENT Exam: Mucous Membranes Moist - Respiratory Exam Respiratory Exam: Clear to Ausculation Bilateral, NORMAL BREATHING PATTERN. absent: Rhonchi, Wheezes - Cardiovascular Exam Cardiovascular Exam: REGULAR RHYTHM, +S1, +S2 - GI/Abdominal Exam GI & Abdominal Exam: Soft, Normal Bowel Sounds. absent: Firm, Guarding - Extremities Exam Additional comments: RLE: Bandage in place, normal cap refill, LLE: BKA with surgical dressing in place, c/d/i, dressing changed today POD#3 Wound 3x5 cm, Granulation tissue, retention suture x4, erythema - Neurological Exam Neurological Exam: Alert, Awake, Oriented x3 - Psychiatric Exam Psychiatric exam: Normal Affect, Normal Mood - Skin Skin Exam: Dry, Intact. absent: Rash Assessment and Plan - Assessment and Plan (Free Text) Assessment: 56 yo M s/p Left BKA with LLE BKA stump trauma and infection. Pt s/p wound debridement on 02/07/17, wound vac has been discontinued and surgical dressing changed Plan: - IV abx dc switched to Levaquin D5/10 - Wound cx from 02/03/17= Staph aureus - Repeat wound cx from surgery, wound pending, no anaerobic growth, - s/p I&D 02/07/2017 - Wound 3x5 cm, Granulation tissue, retention suture x4, erythema - Cr trending downward, renal following: per note: no emergent need for renal replacement yet - Medical management per primary - Patient clear for discharge from surgical standpoint - Plan to discuss with Dr. Jack Carmen PGY-1
--- NOTE | 2017-02-10 10:31 | CARD ---
APPROVED REPORT EKG Measurement Heart [id number] <Conclusion> Normal sinus rhythm Normal ECG No raymon
[2017-02-10] MEDS: Venlafaxine 75 mg ER Cap PO SCH (10:46)
[2017-02-10] MEDS: Metoprolol Succinate 25 mg XL Tab PO SCH (10:48)
[2017-02-10] MEDS: Pantoprazole 40 mg EC Tab PO SCH (10:49)
[2017-02-10] MEDS: HYDROmorphone 0.5 mg/0.5 ml ISec IVP PRN ×2 (10:58→20:54)
--- NOTE | 2017-02-10 11:36 | PN ---
DATE: 02/10/2017 CARDIOLOGY FOLLOWUP SUBJECTIVE: The patient is without shortness of breath, without chest pain. PHYSICAL EXAMINATION: VITAL SIGNS: Blood pressure 178/82, heart rate in the 80s. NECK: Negative JVD. LUNGS: Decreased breath sounds bilaterally. HEART: Reveal S1, S2. EXTREMITIES: Edema as well as status post amputation noted. LABORATORY DATA: Hemoglobin is 9.3 with white count is normal. BUN and creatinine is 105 and 4.1, glucose is 268. IMPRESSION: 1. Amputation stump infection. 2. Renal insufficiency. 3. Morbid obesity. 4. Diabetes mellitus. 5. Anemia. 6. Hypertension. PLAN: Given these findings, the patient is currently on Coumadin. We will add clonidine for better blood pressure control. Samir Vora MD
--- NOTE | 2017-02-10 12:24 | PN ---
DATE: SUBJECTIVE: I saw him resting comfortably in bed. He did have chest pain this morning. Turns out the troponin was 0.04, is better than we expected and it was not the hard at this time. pump house technician who is also trying to discharge him to [facility] in [place] to continue the treatment and care as his wishes. He is on Apresoline, Coumadin, Dilaudid, Drisdol, Effexor, Enulose, Fergon, Flomax, insulin, Lasix, Levaquin, Levemir, Lipitor, Lovenox, Norvasc, Flagyl, Protonix, sodium bicarbonate, Toprol, and Zofran. PHYSICAL EXAMINATION: VITAL SIGNS: He has 98.4 temperature, 88 pulse, 178/82 blood pressure, 20 respiratory rate, and 93% O2 sat on room air. HEENT: Head is atraumatic, normocephalic. Throat is moist. NECK: Supple. HEART: Regular rate. LUNGS: Decreased breath sounds with poor inspiration. ABDOMEN: Morbidly obese, soft, and nontender. Positive bowel sounds. No guarding. No rebound. No CVA tenderness. EXTREMITIES: The left leg has a BKA. He had a procedure done. The wound VAC is off, I understand. LABORATORY DATA: He has 9 white count, 9.3 hemoglobin, and 28.6 hematocrit with 321 platelets. INR 1.24 on Coumadin after increased the Coumadin. He has 136 sodium, potassium is 5, BUN 105, and creatinine 4.1. I thought at one time, the plan would be possibility of dialysis, but it was 5.1 creatinine and was 4.9 and was 4.2, now it is 4.1 and is improving. His GFR is 15. Sugar is 247. He is being seen by digital sales assistant. Total bilirubin is 0.4, AST is 21, ALT is 19, and alkaline phosphatase is 181. Troponin was 0.04 this morning. Total protein is 7.2. PLAN: He is being seen by Pulmonary, Infectious Disease, digital sales assistant, Renal, and Surgery. He had multiple issues, status post trauma to the left BKA stump. [facility] [place] [facility] or tomorrow when we have a bed. Pedrito Tee DO [facility] # [id number] NAZ[place]
--- NOTE | 2017-02-10 15:29 | CP.PCM.PN ---
Subjective - Date & Time of Evaluation Date of Evaluation: 02/10/17 Time of Evaluation: 15:26 - Subjective Subjective: Follow up Nephrology Consultation: Assessment: stable Acute Kidney Injury (N17.9) unclear etiology. 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 cr improving. Kidney biopsy will be difficult due to morbid obesity and currently on coumadin. empiric treatment such as steroids also with risks/complications such as hyperglycemia, infection, impaired worund healing. hence watchful recovery is pursued at this time. Hypertension control with meds as ordered. hold ACEI/ARB due to KIA. also d/c HCTZ. increased lasix 40 mg IVP bid. started on clonidine by cardiology started phos binders Increased sodium bicarb 1300 tid. continue with iron supplements and dose of aranesp 02/08/17. weekly Vit D as ordered. agree with kayexylate prn lora catheter hopefully can be d/c in next 1-2 days. continue with flomax Monitor Input/Output, daily weights and renal function with basic metabolic panel Dose meds/antibiotics for reduced GFR. Avoid fleets enema/magnesium based laxatives. Avoid nephrotoxins/NSAIDs/ iodinated contrast (unless needed emergently) Glycemic control Further work up/management as per primary team Thanks for allowing me to participate in care of your patient. Will follow patient with you. Please call if any Qs. d/w primary team. had d/w on phone Dr Gomez [place] Office: [phone] Chief Complaint; fall on left leg stump HPI: Pt is a 56 M with hx of diabetes Mellitus (35 years) with retinopathy, hypertension (30 years), morbid obesity, hx of PE on coumadin, left leg wound s/ p BKA in sep 2016 @ [facility], who was in a cruise presented with complaints of fall on left BKA stump and bleeding thereafter. he was also given IV antibiotics in cruise ? name of antibiotics. Denies chest pain, palpitation, denies shortness of breath. feels had a panic attack this am Denies OTC/herbal meds but was taking NSAIDs No recent iodinated contrast exposure. No obvious episodes of low BP. Physical Examination: General Appearance: Comfortable, in no acute respiratory distress, co- operative. morbid obesity Vitals reviewed and noted as below Head; Atraumatic, normocephalic ENT: no ulcers no thrush. Tongue is midline. Oropharynx: no rash or ulcers. EYES: Pupils are equal, round and reactive to light accommodation. Eye muscles and extraocular movement intact. Sclera is anicteric. Neck; supple no lymphadenopathy, no thyromegaly or bruit Lungs: Normal respiratory rate/effort. Breath sounds bilateral equal and decreased at bases Heart: Normal rate. s1s2 normal. No rub or gallop. Extremities: left BKA in dressing. RLE in dressing. Neurological: Patient is alert, awake and oriented to person, place and time. No focal deficit. Strength bilateral appropriate and equal Skin: Warm and dry. Normal turgor. No rash. Palpitation: Normal elasticity for age Abdomen: Abdomen is soft. Bowel sounds +. There is no abdominal tenderness, no guarding/rigidity no organomegaly Psych: normal insight and normal affect/mood MSK: no joint tenderness or swelling. Digits and nails normal, no deformity : kidney or bladder not palpable Labs/imaging reviewed. Past medical history, past surgical history, family history, social history, allergy reviewed and noted as below Family hx: no hx of CKD. Rest non-contributory Objective - Vital Signs/Intake and Output Vital Signs (last 24 hours): Temp Pulse Resp BP Pulse Ox 98.4 F 88 20 178/82 H 93 L 02/10/17 08:00 02/10/17 10:48 02/10/17 08:00 02/10/17 10:48 02/10/17 08:00 Intake and Output: 02/10/17 02/10/17 06:59 18:59 Intake Total 480 Output Total 1600 310 Balance -1120 -310 - Medications Medications: Current Medications Amlodipine Besylate (Norvasc) 10 mg PO DAILY [facility] Last Admin: 02/10/17 10:48 Dose: 10 mg Atorvastatin Calcium (Lipitor) 40 mg PO HS [facility] Last Admin: 02/09/17 21:38 Dose: Not Given Calcium Acetate (Phoslo) 1,334 mg PO WM [facility] Last Admin: 02/10/17 12:53 Dose: 1,334 mg Clonidine HCl (Catapres) 0.1 mg PO BID [facility] Last Admin: 02/10/17 10:47 Dose: 0.1 mg Enoxaparin Sodium (Lovenox) 30 mg SC Q12H [facility] PRN Reason: Protocol Last Admin: 02/10/17 08:40 Dose: 30 mg Ergocalciferol (Drisdol 50,000 Intl Units Cap) 1 cap PO Q7D [facility] Last Admin: 02/07/17 10:34 Dose: 1 cap Ferrous Gluconate (Fergon) 324 mg PO TID [facility] Last Admin: 02/10/17 12:59 Dose: 324 mg Furosemide (Lasix) 40 mg IVP BID [facility] Last Admin: 02/10/17 10:46 Dose: 40 mg Hydralazine HCl (Apresoline) 25 mg PO QID PRN PRN Reason: Other Hydromorphone HCl (Dilaudid) 0.5 mg IVP Q4H PRN PRN Reason: Pain, moderate (4-7) Last Admin: 02/10/17 10:58 Dose: 0.5 mg Insulin Detemir (Levemir) 60 unit SC [facility] Insulin Human Lispro (Humalog Low) 0 units SC [facility] PRN Reason: Protocol Last Admin: 02/10/17 12:54 Dose: 3 units Insulin Human Lispro (Humalog) 34 units SC AC [facility] Last Admin: 02/10/17 12:59 Dose: 34 units Lactulose (Enulose) 20 gm PO TID [facility] Last Admin: 02/10/17 12:59 Dose: 20 gm Levofloxacin (Levaquin) 250 mg PO DAILY [facility] PRN Reason: Protocol Stop: 02/16/17 10:01 Last Admin: 02/10/17 10:48 Dose: 250 mg Metoprolol Succinate (Toprol Xl) 25 mg PO DAILY [facility] Last Admin: 02/10/17 10:48 Dose: 25 mg Ondansetron HCl (Zofran Inj) 4 mg IVP Q4H PRN PRN Reason: Nausea/Vomiting Last Admin: 02/09/17 21:36 Dose: 4 mg Pantoprazole Sodium (Protonix Ec Tab) 40 mg PO DAILY [facility] Last Admin: 02/10/17 10:49 Dose: 40 mg Sodium Bicarbonate (Sodium Bicarbonate Tab) 1,300 mg PO TID [facility] Last Admin: 02/10/17 12:59 Dose: 1,300 mg Tamsulosin HCl (Flomax) 1 mg PO DAILY [facility] Last Admin: 02/10/17 10:46 Dose: 1 mg Venlafaxine HCl (Effexor Xr) 150 mg PO DAILY [facility] Last Admin: 02/10/17 10:46 Dose: 150 mg Warfarin Sodium (Coumadin) 10 mg PO 1800 [facility] Last Admin: 02/09/17 18:59 Dose: 10 mg Warfarin Sodium (Coumadin) 5 mg PO 1800 [facility] Last Admin: 02/09/17 18:59 Dose: 5 mg - Labs Labs: 02/10/17 06:15 02/10/17 06:15 PT 13.7 SECONDS (9.4-12.5) H 02/08/17 06:15 INR 1.24 (0.93-1.08) H 02/08/17 06:15 APTT 32.5 Seconds (25.1-36.5) 02/07/17 06:30
[2017-02-10] MEDS ORDERED: Albuterol-Ipratrop 3 mg / 0.5 (3 ml) UD IH STA (17:07)
[2017-02-10 17:53] LABS: ARTERIAL BLOOD GAS HCO3 20.7 mmol/L (21-28); ARTERIAL BLOOD GAS HEMOGLOBIN 9.2 g/dL (11.7-17.4); ARTERIAL BLOOD GAS O2 CAPACITY 12.7 mL/dl (16-24); ARTERIAL BLOOD GAS O2 SAT 94.5 % (95-98); ARTERIAL BLOOD GAS PCO2 35 mm/Hg (35-45); ARTERIAL BLOOD GAS PH 7.38 (7.35-7.45); ARTERIAL BLOOD GAS TCO2 21.8 mmol.L (22-28)
[2017-02-10 18:27] LABS: PROTHROMBIN TIME 16.9 SECONDS (9.4-12.5)
[2017-02-10 18:28] LABS: INR 1.54 (0.93-1.08); PARTIAL THROMBOPLASTIN TIME 30.6 Seconds (25.1-36.5)
--- NOTE | 2017-02-10 18:33 | PCM.RRT ---
SCRIPT DEVELOPER Nurse Assessment - Situation Date: 02/10/17 Time SCRIPT DEVELOPER was called: 16:57 SCRIPT DEVELOPER Responder Arrival Time: 16:58 SCRIPT DEVELOPER Location:: [address] [place] [address] Room Number: 571-2 SCRIPT DEVELOPER Reason for Call: Respiratory Distress, O2 Saturation below 90% SCRIPT DEVELOPER Called By: RN, Physician - IV IV Inserted during SCRIPT DEVELOPER?: No - Respiratory Oxygen Delivery Method: Nasal Cannula @L/min Oxygen Flow Rate: 2 - Diagnostic Test Ordered EKG: Yes - Stat Labs Ordered SCRIPT DEVELOPER Stat Labs Ordered: ABG CPR started during SCRIPT DEVELOPER?: No - Vital Signs Vital Sign: Rapid Response Vital Sign Blood Pressure 146/81 Pulse Rate 85 Respiratory Rate 24 Oxygen Saturation 91 - Finger Stick Blood Glucose Finger Stick Blood Glucose: 215 - Time SCRIPT DEVELOPER Ended Time SCRIPT DEVELOPER Ended: 17:14 I.Reason for SCRIPT DEVELOPER - A) Acute Change in Patient: (Select all that apply): Staff member or family is worried about patient (SaO2 83% on room air, 89% on 4L O2 NC, Rapid response called as per Admitting Attending) Subjective: House Physician Resident Note Oscar Mejia, IM PGY-2 Rapid response called at 1656, responded immediately. As per nursing at bedside , patient's vitals were being obtained when staff noticed that his SaO2 was 83% . Nasal canula O2 was placed, set to 4L, and SaO2 only improved to 89%, at which point the patient's PMD (Dr. Tee) was called, and instructed nursing to call a rapid response. Upon arrival, patient was awake, alert, hemodynamically stable, and in no overt distress. Nursing reported patient was displaying some shallow breathing at time of SaO2 83%, however this resolved by time of Rapid Response Team arrival. Patient denies any sensation of shortness of breath, difficulty breathing, or of secretions unable to be expectorated. He reports some malaise and nausea, but states that these have been present for several days and is generally feeling better today as compared to yesterday. Patient's charting and reviewed at bedside. Of note, patient has a prior hx of PE, and is currently subtherapeutic on Coumadin (INR 1.24 on last check, 1.54 today), as his anticoagulation was held for recent surgery (Left BKA stump wound debridement). Coumadin was restarted post-op, but he has yet to return to therapeutic level. Also of note, overnight, the patient was reported to have an episode of shortness of breath, nausea, and chest pressure, requiring an increase in his FiO2 (on Bipap overnight) to 70%; he was also diuresed with lasix IV and trops/serial EKGs were trended to rule out cardiac etiology ( Cardio already following). Review of currently available trops and EKGs (2 of 3 for each) did not show any elevations or abnormalities concerning for acute cardiac insult. Switching pulse oximeter to other hand resulted in reading of 91-93% consistently, and testing with another pulse-oximeter resulted in a SaO2 of 92%. Due to concern for possible new PE, heparin bolus and heparin drip were ordered , a new ABG was ordered, and Lasix 80mg IVP x1 was ordered (no signs of pulmonary edema on exam, not dyspnic with speech, but hx of CHF). Due to poor renal status (Cr. > 4.0) as well as patient's body habitus (severely obese), V/ Q scan was ordered instead of CT angiogram to assess for possible PE. As per PMD's order, the [employer] on-call (Dr. Dawn) was consulted for possible transfer to the ICU. Case was discussed with assistant manager of operations, who agrees with initial plan. He examined the patient independently and will discuss with patient's PMD. - Respiratory Oxygen Delivery Method: Nasal Cannula @L/min Oxygen Flow Rate: 2 - Constitutional Appears: Well, Non-toxic, No Acute Distress Additional Comments: Severely obese - Head Head Exam: ATRAUMATIC, NORMAL INSPECTION, NORMOCEPHALIC - Eyes Eye Exam: absent: Conjunctival injection, Scleral icterus - Respiratory Exam Respiratory Exam: Decreased Breath Sounds (mild-moderately decreased breath sounds in all ramírez, more prominent at bases; likely some component due to body habitus), Clear to Ausculation Bilateral, NORMAL BREATHING PATTERN. absent : Accessory Muscle Use, Chest Wall Tenderness, Prolonged Expiratory Phase, Rales , Rhonchi, Wheezes, Respiratory Distress Additional comments: wearing nasal canula at 4L, no dyspnea with speech, no tam tachypnea or cyanosis of lips/distal fingertips - Cardiovascular Exam Cardiovascular Exam: REGULAR RHYTHM, RRR, +S1, +S2. absent: Bradycardia, Tachycardia, Irregular Rhythm - GI/Abdominal Exam GI & Abdominal Exam: Soft - Neurological Exam Neurological Exam: Alert, Awake, Oriented x3 Additional exam: following all commands appropriately, moving bilateral upper extremities spontaneously, tracking staff throughout room appropriately - Extremities Exam Additional comments: left BKA with bandaging along terminal stump, no gross discharge or bleeding through bandaging compression bandaging along RLE from foot to superior to R knee no cyanosis of distal fingertips extremities warm to palpation at distal ends Plan - Assessment of Findings&Treatment Plan Lasix 80mg IVP x1 ordered Duonebs breathing tx stat ordered ABG ordered V/Q scan ordered (Nursing calender supervisor notified, Nuclear medicine team to be called in) Continue pt's coumadin, will bridge to therapeutic INR with heparin bolus and heparin drip for possible PE ICU consulted, case discussed with [employer] EKG originally scheduled for 6:30pm changed to stat, obtained, will follow up Case discussed with responding Hospitalist, Dr. Walsh.
[2017-02-10] MEDS: Heparin25000 units/250ml 1/2NS 25,000 UNITS/250 ML BAG IV PRN (20:54)
[2017-02-10] MEDS: Insulin Detemir 100 units/ml Vial (Levemir) SC SCH (22:05)
--- NOTE | 2017-02-10 22:41 | PN ---
DATE: 02/10/2017 SUBJECTIVE: The patient is in bed in no acute distress, nontoxic. PHYSICAL EXAMINATION: VITAL SIGNS: Temperature is 98, blood pressure is 140/80, respiratory rate 24, heart rate of 88. HEENT: Examination of HEENT is unremarkable. NECK: Supple. LUNGS: Have decreased breath sounds. HEART: Normal S1, S2. ABDOMEN: Soft, nontender. LABORATORY EXAMINATION: Reveals the patient's white count is 9000, hemoglobin of 9, platelets of 321. BUN of 105, creatinine is 4.1. Urinalysis is noted, and serology is negative. Microbiology is noted. ASSESSMENT AND PLAN: A 56-year-old male with morbid obesity, body mass index of 55, hypertension, left below-knee amputation, admitted with severe left stump infection with a sensitive Staphylococcus aureus cellulitis, had developed a rash on Teflaro, currently on p.o. Levaquin with a QTC interval of 430. We will follow with you. Kobe Brownlee MD
--- NOTE | 2017-02-11 05:13 | CON ---
DATE: 02/10/2017 HISTORY OF PRESENT ILLNESS: This is a 56-year-old gentleman with history of diabetes, hypertension, pulmonary embolism in the past, binge eating disorder (patient is on venlafaxine and valproate), who presented this time on 02/03 for unhealing ulcer in his stump of the left lower extremity (patient had BKA about three months ago). Patient had his wound debrided, started on antibiotics, and substantially improved. Provided that the patient has obstructive sleep apnea, morbid obesity, he also required BiPAP at night. Of note, patient was on Coumadin for PE; however, that was withheld in anticipation of surgery prior to procedure. At present time, patient had his Coumadin restarted; however, his INR remains subtherapeutic. Earlier today, patient developed hypoxemia on room air and rapid response was called. However, upon application of 4 liters/minute of oxygen through nasal cannula, his oxygen level went up to 90% to 93%. Patient is comfortable, not in respiratory or otherwise distress, maintaining long conservation; alert, awake, oriented. Subjectively, reports feeling better today than yesterday. No fever. No chills. No sweats. No nausea. No vomiting. No diarrhea. No constipation. PAST MEDICAL HISTORY: Diabetes, hypertension, status post BKA on the left side, binge eating disorder, pulmonary embolism, CHF, GERD, hypercholesterolemia. ALLERGIES: LISINOPRIL. FAMILY HISTORY: Noncontributory. MEDICATIONS IN THE HOSPITAL: Norvasc, Lipitor, PhosLo, clonidine, Lovenox 30 mg subq q.12 (patient has developed KIA during the hospital course), Drisdol, Fergon, Lasix 20 IV b.i.d., heparin drip (just started now), Apresoline p.r.n., Dilaudid p.r.n., Levemir, regular insulin sliding scale low protocol, lactulose, Levaquin, metoprolol, Zofran p.r.n., Protonix, Flomax, Effexor, warfarin. REVIEW OF SYSTEMS: Review of 12-point system other than mentioned in history of present illness is negative. PHYSICAL EXAMINATION: VITAL SIGNS: Blood pressure 146/68, heart rate 85, respiratory rate 24, oxygen saturation 91% to 93% on 2 liters nasal cannula. HEENT: Head and neck atraumatic. HEART: Regular rate and rhythm. S1, S2 normal. ABDOMEN: Soft, nontender, nondistended. LUNGS: Clear to auscultation bilaterally. Decreased breath sounds bilaterally. MUSCULOSKELETAL: Patient has BKA on the left side. Patient is status post debridement of the unhealing ulcer in the stump, which now after debridement appears to be doing well. Some chronic cellulitic changes on the right lower extremity as well. PSYCHIATRIC: Patient is alert and oriented x3, not in respiratory or otherwise distress. Good affect. Good appetite. Maintain lengthy conversation. LABORATORY DATA: INR as of two days ago, 1.24. (Repeat PTT and INR are pending.) WBC is 9, hemoglobin 9.3, platelet count 321. Sodium 136, potassium 5, chloride 105, carbon dioxide is 18, BUN 105, creatinine 4.1, glucose 253. Troponin x2 negative 0.04. AST 21, ALT 19, alkaline phosphatase 181. EKG did not show any specific ischemic changes. Normal sinus rhythm at 84. ASSESSMENT AND PLAN: This 56-year-old gentleman with what appears to be a chronic hypoxemic respiratory insufficiency due to multiple factors including obstructive sleep apnea/obesity hypoventilation syndrome, likely component of restrictive lung disease due to severe obesity; congestive heart failure. At present time, the patient is comfortable and appears to be doing subjectively better than yesterday. If INR and PTT returns subtherapeutic, I will continue with heparin drip. Called to Dr. Santiago to make sure that surgical team is on board with therapeutic anticoagulation was made. I will strongly recommend BiPAP at night. Bronchodilators. I will repeat arterial blood gas and chest x-ray to have a better idea about gas exchange and ventilatory situation. I would continue to target euvolemia, euglycemia, normothermia, and oxygen saturation more than 90%. I will continue with gastrointestinal prophylaxis. Echocardiogram performed several days ago did not reveal left ventricular systolic dysfunction, right ventricle does not have severe systolic dysfunction as well. Right ventricular systolic pressure 17. The patient may continue to be monitored on the Med-Surg castro. Please call back if clinical situation deteriorate or any questions arise. ccm time 40 min Christophe Dawn MD MTDNaveen
--- NOTE | 2017-02-11 07:35 | CP.PCM.PN ---
Subjective - Date & Time of Evaluation Date of Evaluation: 02/10/17 Time of Evaluation: 23:00 - Subjective Subjective: Currently, the patient is laying upright in bed, in no acute distress, with CPAP in place. He currently denies any complaints. Objective - Vital Signs/Intake and Output Vital Signs (last 24 hours): Temp Pulse Resp BP Pulse Ox 98.6 F 83 22 161/82 H 96 02/11/17 00:00 02/11/17 00:00 02/11/17 00:00 02/11/17 00:00 02/11/17 00:00 Intake and Output: 02/11/17 02/11/17 06:59 18:59 Intake Total 1090 Output Total 800 Balance 290 - Medications Medications: Current Medications Amlodipine Besylate (Norvasc) 10 mg PO DAILY [facility] Last Admin: 02/10/17 10:48 Dose: 10 mg Atorvastatin Calcium (Lipitor) 40 mg PO HS [facility] Last Admin: 02/10/17 22:06 Dose: 40 mg Calcium Acetate (Phoslo) 1,334 mg PO WM [facility] Last Admin: 02/10/17 20:08 Dose: Not Given Clonidine HCl (Catapres) 0.1 mg PO BID [facility] Last Admin: 02/10/17 18:53 Dose: 0.1 mg Ergocalciferol (Drisdol 50,000 Intl Units Cap) 1 cap PO Q7D [facility] Last Admin: 02/07/17 10:34 Dose: 1 cap Ferrous Gluconate (Fergon) 324 mg PO TID [facility] Last Admin: 02/10/17 18:53 Dose: 324 mg Furosemide (Lasix) 40 mg IVP BID [facility] Last Admin: 02/10/17 20:07 Dose: Not Given Hydralazine HCl (Apresoline) 25 mg PO QID PRN PRN Reason: Other Hydromorphone HCl (Dilaudid) 0.5 mg IVP Q4H PRN PRN Reason: Pain, moderate (4-7) Last Admin: 02/10/17 20:54 Dose: 0.5 mg Heparin Sodium/Sodium Chloride (Heparin 60654 Units/250ml 1/2 Normal Saline) 25 ,000 units in 250 mls @ 20.003 mls/hr IV .[id number] PRN; Protocol; 9 UNITS/KG/HR PRN Reason: ADJUST RATE PER PROTOCOL Last Titration: 12/22/17 04:28 Dose: 11 units/kg/hr, 24.449 mls/hr Insulin Detemir (Levemir) 60 unit SC HS [facility] Last Admin: 02/10/17 22:05 Dose: 60 unit Insulin Human Lispro (Humalog Low) 0 units SC [facility] PRN Reason: Protocol Last Admin: 02/10/17 22:29 Dose: Not Given Insulin Human Lispro (Humalog) 34 units SC AC [facility] Last Admin: 02/10/17 18:58 Dose: 34 units Lactulose (Enulose) 20 gm PO TID [facility] Last Admin: 02/10/17 18:53 Dose: 20 gm Levofloxacin (Levaquin) 250 mg PO DAILY [facility] PRN Reason: Protocol Stop: 02/16/17 10:01 Last Admin: 02/10/17 10:48 Dose: 250 mg Metoprolol Succinate (Toprol Xl) 25 mg PO DAILY [facility] Last Admin: 02/10/17 10:48 Dose: 25 mg Ondansetron HCl (Zofran Inj) 4 mg IVP Q4H PRN PRN Reason: Nausea/Vomiting Last Admin: 02/09/17 21:36 Dose: 4 mg Pantoprazole Sodium (Protonix Ec Tab) 40 mg PO DAILY [facility] Last Admin: 02/10/17 10:49 Dose: 40 mg Sodium Bicarbonate (Sodium Bicarbonate Tab) 1,300 mg PO TID [facility] Last Admin: 02/10/17 18:53 Dose: 1,300 mg Tamsulosin HCl (Flomax) 1 mg PO DAILY [facility] Last Admin: 02/10/17 10:46 Dose: 1 mg Topiramate (Topamax) 100 mg PO DAILY [facility] PRN Reason: Protocol Topiramate (Topamax) 50 mg PO [facility] PRN Reason: Protocol Venlafaxine HCl (Effexor Xr) 150 mg PO DAILY [facility] Last Admin: 02/10/17 10:46 Dose: 150 mg Warfarin Sodium (Coumadin) 10 mg PO 1800 [facility] Last Admin: 02/10/17 18:53 Dose: 10 mg Warfarin Sodium (Coumadin) 5 mg PO 1800 [facility] Last Admin: 02/10/17 18:53 Dose: 5 mg - Labs Labs: 02/10/17 06:15 02/10/17 06:15 PT 16.9 SECONDS (9.4-12.5) H 12/21/17 18:11 INR 1.54 (0.93-1.08) H 02/10/17 18:11 APTT 44.3 Seconds (25.1-36.5) H 02/11/17 02:40 - Constitutional Appears: No Acute Distress - Head Exam Head Exam: ATRAUMATIC - Eye Exam Eye Exam: Normal appearance - Respiratory Exam Respiratory Exam: Clear to Ausculation Bilateral, NORMAL BREATHING PATTERN - Cardiovascular Exam Cardiovascular Exam: REGULAR RHYTHM, +S1, +S2. absent: Murmur - GI/Abdominal Exam GI & Abdominal Exam: Soft, Normal Bowel Sounds Additional comments: Obese - Rectal Exam Rectal Exam: Deferred - Extremities Exam Additional comments: Left BKA stump wrapped in dressing which is clean/dry/intact - Neurological Exam Additional comments: Grossly normal neuro exam Assessment and Plan - Assessment and Plan (Free Text) Assessment: The patient is a 56 year old morbidly obese man with a history of RUI, BPH, GERD , CHF, HLD, depression and left BKA who was admitted to [facility] on 02/03/17 with a grossly bloody left BKA stump ulcer. Earlier this evening, a rapid response was called after the patient briefly became SOB and desatted to the mid to upper 80' s. After receiving increasing O2 via NC, Duo-nebs and stat IV Lasix, his symptoms and vitals normalized. Currently, he is sleeping laying upright in bed with CPAP in place. He currently denies any complaints. Agree with empirical therapeutic Heparin drip (per DVT/PE protocol) which the patient is currently receiving. A V/Q scan has been ordered to rule out PE. Because his vitals and symptoms have normalized after receiving stat treatments, he doesn't require ICU level of care at this time. Please re-consult if his condition deteriorates. Thank you.
[2017-02-11 07:39] LABS: HEMOGLOBIN 8.8 g/dL (14.0-18.0); MEAN CELL VOLUME 82.3 fl (80.0-105.0); MEAN CORPUSCULAR HEMOGLOBIN 26.8 pg (25.0-35.0); MEAN CORPUSCULAR HGB CONC 32.6 g/dl (31.0-37.0); MEAN PLATELET VOLUME 8.6 fl (7.0-11.0); RBC 3.28 10^6/uL (3.5-6.1); RED CELL DISTRIBUTION WIDTH 14.1 % (11.5-14.5); WHITE BLOOD COUNT 7.7 10^3/ul (4.5-11.0)
[2017-02-11 07:54] LABS: INR 1.78 (0.93-1.08); PROTHROMBIN TIME 19.8 SECONDS (9.4-12.5)
[2017-02-11 08:03] LABS: ALB/GLOB RATIO 0.7 (1.1-1.8); ALBUMIN 2.8 g/dL (3.0-4.8); CALCIUM 8.6 mg/dL (8.4-10.5)
--- NOTE | 2017-02-11 08:35 | PN ---
DATE: 02/11/2017 PULMONARY PROGRESS NOTE SUBJECTIVE: The patient appears comfortable this morning. He is not short of breath at rest. He has no chest pain. He states to feeling much better. PHYSICAL EXAMINATION: VITAL SIGNS: (Last noted in the computer): Temperature is 98.6, pulse is 83, respirations this morning 18/20, and blood pressure last recorded is 161/82. Oxygen saturation on nasal cannula is 96%. HEENT: Normocephalic and atraumatic. NECK: No JVD. CARDIOVASCULAR: Positive S1 and S2. No S3, gallop. LUNGS: Clear bilaterally. EXTREMITIES: The left aefhq-jzt-uiun amputation stump is now wrapped. The right leg reveals mild edema. There is no cyanosis or clubbing. The right calf is nontender to palpation. GASTROINTESTINAL: Abdomen is soft, nontender and nondistended. Bowel sounds are positive. SKIN: No acute rash. NEUROLOGIC: Exam is limited at the present time. PERTINENT LABORATORY DATA Pertinent laboratory data: Chest x-ray was done/repeated late yesterday afternoon. There is a possible new infiltrate noted in the right mid lung field. The film is a poor semi-erect portable film. An arterial blood gas was also repeated on nasal cannula(yesterday). Results are: PH of 7.38, pCO2 of 35, and pO2 of 61. IMPRESSION: 1. Left eyvsa-uot-zuvq amputation stump infection. 2. Morbid obesity. 3. Obstructive sleep apnea. 4. Rule out hospital-acquired pneumonia. 5. Hypoxemia. 6. Chronic renal disease. 7. Hypertension. 8. Diabetes mellitus. PLAN: The patient appears very comfortable this morning. He is not short of breath at rest. He has no chest discomfort. He does state to feeling much better overall. On physical exam, there is no significant bronchospasm noted. In addition, the oxygen saturation on nasal cannula is now 96%. I did review the events, and the chest x-ray from last night. The x-ray is a poor semi-erect portable film. It appears to show a possible infiltrate in the right mid lung field. We are awaiting official results. Inputs by Dr. Dawn(ICU) and the medical oncology physician are also noted. The patient is currently on the heparin protocol, as well as oral Coumadin. A ventilation-perfusion scan has been ordered. I will check that when feasible. Repeat a.m. labs are pending. Clinical status of this chronically ill, morbidly obese male remains very guarded. Additional pulmonary intervention will be based on the above results, as well as the clinical status of the patient. I did discuss the above with Dr. Tee this morning. Felipe Gibson MD MTDD
--- NOTE | 2017-02-11 08:47 | PN ---
DATE: 02/10/2017 ENDO FOLLOWUP NOTE LOCATION: Room 571. SUBJECTIVE: This is a 56-year-old male with recent uncontrolled type 2 insulin-requiring diabetes, presenting here with cellulitis in the left below-knee amputation stump. Currently receiving IV antibiotics and local debridement procedure as noted thereof. He is being followed closely also for metabolic management because of persistent hyperglycemic fluctuations despite a very insulin dose regimen given with expected increased insulin resistance with underlying super-morbid obesity. His glucose values today have ranged from 247-253 mg/dL. The latest chemistry showed a BUN of 105, sodium 136, potassium 5.0, chloride 105, CO2 of 18, glucose 268 and creatinine 4.1. So at this time, we will actually modify and increase the Levemir to 60 units subcu at bedtime daily to start tonight. We will continue the Humalog given as 34 units subcu at bedtime daily to allow for dose equilibration as ordered. We will continue the low-dose correction scale using Humalog insulin as given. We will obtain serial chemistries and supplement accordingly needed. We will follow and advise accordingly. Ania Hernandez MD
[2017-02-11] MEDS: Heparin25000 units/250ml 1/2NS 25,000 UNITS/250 ML BAG IV PRN ×2 (09:17→19:55)
--- NOTE | 2017-02-11 09:24 | RAD ---
HISTORY: chf COMPARISON: 02/03/2017 FINDINGS: LUNGS: Band-like opacity mid right lung and opacity at left base. Possible pneumonia. New since prior. PLEURA: No significant pleural effusion identified, no pneumothorax apparent. CARDIOVASCULAR: Normal. OSSEOUS STRUCTURES: No significant abnormalities. VISUALIZED UPPER ABDOMEN: Normal. OTHER FINDINGS: None. IMPRESSION: Bilateral opacities, new since prior. Possible pneumonia versus pulmonary edema. No significant congestive change or pleural effusion noted.
[2017-02-11] MEDS: Venlafaxine 75 mg ER Cap PO SCH (09:25)
[2017-02-11] MEDS: Pantoprazole 40 mg EC Tab PO SCH (09:26)
[2017-02-11] MEDS: Metoprolol Succinate 25 mg XL Tab PO SCH (09:26)
[2017-02-11] MEDS: Insulin Lispro (humaLOG) LOW Coverage SC SCH ×4 (09:28→22:04)
--- NOTE | 2017-02-11 09:38 | CARD ---
APPROVED REPORT EKG Measurement Heart [id number] <Conclusion> Normal sinus rhythm Possible Inferior infarct, age undetermined No change
--- NOTE | 2017-02-11 10:18 | CARD ---
APPROVED REPORT EKG Measurement Heart [id number] [id number] <Conclusion> Normal sinus rhythm Possible IMI, age unknown NSSTW changes No change
--- NOTE | 2017-02-11 10:25 | CP.PCM.PN ---
Subjective - Date & Time of Evaluation Date of Evaluation: 02/11/17 Time of Evaluation: 07:00 - Subjective Subjective: COG PGY1 GENERAL SURGERY PROGRESS NOTE Patient seen and evaluated at bedside. Last evening a RN ANESTHETIST was called for low O2 sat. Patient was placed on heparin drip for potential PE and evaluated by primary and log snaker. Patient remained on floor with heparin drip for observation. Today patient has no complaints. Denies shortness of breath, abdominal pain, chest pain, nausea, vomiting, fever chills. Objective - Vital Signs/Intake and Output Vital Signs (last 24 hours): Temp Pulse Resp BP Pulse Ox 97.9 F 86 20 162/85 H 93 L 02/11/17 08:43 02/11/17 08:43 02/11/17 08:43 02/11/17 09:29 02/11/17 08:43 Intake and Output: 02/11/17 02/11/17 06:59 18:59 Intake Total 1090 80 Output Total 800 Balance 290 80 - Medications Medications: Current Medications Amlodipine Besylate (Norvasc) 10 mg PO DAILY [facility] Last Admin: 02/11/17 09:29 Dose: 10 mg Atorvastatin Calcium (Lipitor) 40 mg PO HS [facility] Last Admin: 02/10/17 22:06 Dose: 40 mg Calcium Acetate (Phoslo) 1,334 mg PO WM [facility] Last Admin: 02/11/17 09:26 Dose: 1,334 mg Clonidine HCl (Catapres) 0.1 mg PO BID [facility] Last Admin: 02/11/17 09:27 Dose: 0.1 mg Ergocalciferol (Drisdol 50,000 Intl Units Cap) 1 cap PO Q7D [facility] Last Admin: 02/07/17 10:34 Dose: 1 cap Ferrous Gluconate (Fergon) 324 mg PO TID [facility] Last Admin: 02/11/17 09:27 Dose: 324 mg Furosemide (Lasix) 80 mg IVP BID [facility] Hydralazine HCl (Apresoline) 25 mg PO QID PRN PRN Reason: Other Hydromorphone HCl (Dilaudid) 0.5 mg IVP Q4H PRN PRN Reason: Pain, moderate (4-7) Last Admin: 02/10/17 20:54 Dose: 0.5 mg Heparin Sodium/Sodium Chloride (Heparin 24352 Units/250ml 1/2 Normal Saline) 25 ,000 units in 250 mls @ 20.003 mls/hr IV .[id number] PRN; Protocol; 9 UNITS/KG/HR PRN Reason: ADJUST RATE PER PROTOCOL Last Admin: 02/11/17 09:17 Dose: 11 units/kg/hr, 24.449 mls/hr Insulin Detemir (Levemir) 60 unit SC HS [facility] Last Admin: 02/10/17 22:05 Dose: 60 unit Insulin Human Lispro (Humalog Low) 0 units SC ACHS [facility] PRN Reason: Protocol Last Admin: 02/11/17 09:28 Dose: Not Given Insulin Human Lispro (Humalog) [address] [facility] Lactulose (Enulose) 20 gm PO TID [facility] Last Admin: 02/11/17 09:27 Dose: 20 gm Levofloxacin (Levaquin) 250 mg PO DAILY [facility] PRN Reason: Protocol Stop: 02/16/17 10:01 Last Admin: 02/11/17 09:26 Dose: 250 mg Metolazone (Zaroxolyn) 2.5 mg PO BID [facility] Stop: 02/15/17 10:01 Metoprolol Succinate (Toprol Xl) 25 mg PO DAILY [facility] Last Admin: 02/11/17 09:26 Dose: 25 mg Ondansetron HCl (Zofran Inj) 4 mg IVP Q4H PRN PRN Reason: Nausea/Vomiting Last Admin: 02/09/17 21:36 Dose: 4 mg Pantoprazole Sodium (Protonix Ec Tab) 40 mg PO DAILY [facility] Last Admin: 02/11/17 09:26 Dose: 40 mg Sodium Bicarbonate (Sodium Bicarbonate Tab) 1,300 mg PO TID [facility] Last Admin: 02/11/17 09:29 Dose: 1,300 mg Tamsulosin HCl (Flomax) 1 mg PO DAILY [facility] Last Admin: 02/11/17 09:25 Dose: 1 mg Topiramate (Topamax) 100 mg PO DAILY [facility] PRN Reason: Protocol Last Admin: 02/11/17 09:30 Dose: 100 mg Topiramate (Topamax) 50 mg PO [facility] PRN Reason: Protocol Venlafaxine HCl (Effexor Xr) 150 mg PO DAILY [facility] Last Admin: 02/11/17 09:25 Dose: 150 mg Warfarin Sodium (Coumadin) 10 mg PO 1800 [facility] Last Admin: 12/21/17 18:53 Dose: 10 mg Warfarin Sodium (Coumadin) 5 mg PO 1800 [facility] Last Admin: 02/10/17 18:53 Dose: 5 mg - Labs Labs: 02/11/17 07:00 02/11/17 07:00 PT 19.8 SECONDS (9.4-12.5) H 02/11/17 07:00 INR 1.78 (0.93-1.08) H 02/11/17 07:00 APTT 44.3 Seconds (25.1-36.5) H 02/11/17 02:40 - Constitutional Appears: No Acute Distress - Head Exam Head Exam: ATRAUMATIC, NORMAL INSPECTION, NORMOCEPHALIC - Eye Exam Eye Exam: EOMI, PERRL - ENT Exam ENT Exam: Mucous Membranes Moist - Neck Exam Neck Exam: Full ROM - Respiratory Exam Respiratory Exam: Clear to Ausculation Bilateral, NORMAL BREATHING PATTERN. absent: Rhonchi, Wheezes, Respiratory Distress - Cardiovascular Exam Cardiovascular Exam: REGULAR RHYTHM, +S1, +S2 - GI/Abdominal Exam GI & Abdominal Exam: Soft, Normal Bowel Sounds. absent: Tenderness - Extremities Exam Additional comments: Left BKA with wound vac in place and on suction, no gross discharge or bleeding through bandaging prior to changing compression bandaging along RLE from foot to superior to R knee extremities warm to palpation at distal ends, normal capillary refill - Neurological Exam Neurological Exam: Alert, Awake, Oriented x3 - Psychiatric Exam Psychiatric exam: Normal Affect, Normal Mood - Skin Skin Exam: Dry, Intact. absent: Rash Assessment and Plan - Assessment and Plan (Free Text) Assessment: 56 yo M s/p Left BKA with LLE BKA stump trauma and infection. Pt s/p wound debridement on 02/07/17, wound vac has been discontinued and surgical dressing changed Plan: - Patient placed back on wound vac while in hospital - Plan for local wound care upon discharge - Cleared for discharge from a surgical standpoint - Will discuss with Dr. Jack Carmen PGY1
--- NOTE | 2017-02-11 10:38 | PN ---
DATE: SUBJECTIVE: I saw the patient resting comfortably in bed. He did not sleep with the BiPAP on last night. He tells me he dries out his mouth too much. He is on 4 liters of nasal cannula saturating at 95% to 96%. He is comfortable. He is not short of breath. No chest pain any more. He is in good spirits. He is upset that he is here in the hospital not at home having [place] and he is sad about that. He is being seen by Pulmonary. He had a rapid response yesterday, he was on 4 liters of nasal cannula. He is doing better. PHYSICAL EXAMINATION: GENERAL: He is alert, comfortable, and talking. VITAL SIGNS: Temperature 97.9, 86 pulse, 163/85 blood pressure, 20 respiratory rate, and 93% on O2 saturation on room air. HEENT: Head is atraumatic. Normocephalic. Mouth is dry. NECK: Supple. HEART: Regular rate. LUNGS: Decreased breath sounds, but clear to auscultation at the baseline. No new wheezes, rhonchi or rales. ABDOMEN: Soft, morbidly obese, positive bowel sounds. He did have a bowel movement yesterday. EXTREMITIES: Left leg, he has got a BKA. He had surgery done. He has got a wound VAC on. He does have edema on the right leg. LABORATORY DATA: He has 135 sodium, potassium 4.7, BUN 111, and creatinine is 4 from his renal failure. GFR is 16. Sugar is 232. Calcium is 8.6, total bilirubin is 0.3, AST is 21, ALT is 25, alkaline phosphatase is 191, and total protein is 6.9. Urine had many bacteria. MEDICATIONS: He is currently on Apresoline, Catapres, Coumadin, Dilaudid, Drisdol, Effexor, Enulose, Fergon, Flomax, and heparin drip. He was on Lovenox. He is on insulin. He is on Lasix IV. He has got Levaquin, Levemir, Lipitor, Norvasc, PhosLo, Protonix, sodium bicarbonate, Topamax, Toprol, and Zofran. ASSESSMENT AND PLAN: He has got multiple, multiple problems. He started with a fall on a cruise ship, banged his left BKA where it became a wound. It was debrided and wound VAC. He had renal failure. Morbid, morbidly obese. He was very constipated. He has diabetes that was out of control, we will bring that under control and now we are dealing with chest pain and shortness of breath issue. We will continue aggressive treatment and care on him. Pedrito Tee DO
[2017-02-11] MEDS: Insulin Lispro 1 UNITS/0.01 ML SC SCH ×2 (11:30→17:00)
--- NOTE | 2017-02-11 13:01 | PN ---
DATE: 02/11/2017 CARDIOLOGY FOLLOWUP SUBJECTIVE: The patient is without shortness of breath, without chest pain. OBJECTIVE: VITAL SIGNS: Blood pressure is 162/85, the heart rate is in the 80s. NECK: Negative JVD. LUNGS: Decreased breath sounds bilaterally. HEART: Reveal S1, S2. EXTREMITIES: Persistent edema in both the lower extremities including his stump. LABORATORIES: Hemoglobin is 8.8. Chemistries, BUN is 111 over a creatinine of 4.0. IMPRESSION: 1. Hypertension, which is better on clonidine. 2. Diabetes mellitus. 3. Renal insufficiency. 4. Infection of the left lower extremity stump. 5. Anemia. Given these findings, we will continue the clonidine. We will need to adjust medications after 48 hours of clonidine therapy. Samir Vora MD
--- NOTE | 2017-02-11 14:59 | PN ---
DATE: ENDOCRINOLOGY FOLLOWUP NOTE This is a 56-year-old obese male admitted with left below-knee amputation stump cellulitis and currently undergoing IV antibiotic management as given and is also being followed closely for metabolic management because of recent hyperglycemic accelerations as noted thereof. Her latest glucose levels today have improved and have ranging from 191 to 225 mg/dL. The latest chemistry showed a BUN of 111, sodium 135, potassium 4.7, chloride 104, CO2 22, glucose 232, and creatinine 4.0. Her bedtime glucose was 241. So, at this time, to allow for dose equilibration, we will keep him on the same basal and bolus insulin drug combination with Humalog given as 36 units t.i.d. before meals and Levemir given as 60 units subcutaneously at bedtime daily as ordered. We will continue the low-dose correction scale using Humalog insulin as given. We will follow. Ania Hernandez MD
[2017-02-11] MEDS: metOLazone 2.5 MG TAB PO SCH ×2 (15:17→18:37)
--- NOTE | 2017-02-11 15:28 | CP.PCM.PN ---
Subjective - Date & Time of Evaluation Date of Evaluation: 02/11/17 Time of Evaluation: 15:25 - Subjective Subjective: Follow up Nephrology Consultation: Assessment: critical Acute Kidney Injury (N17.9) unclear etiology. possible AIN considering recent antibiotics/NSAIDs, rash or acute tubular necrosis: stable Hypoxia Diabetic chronic Kidney Disease (E11.22) Hypertensive Chronic Kidney Disease (I12.9) Anemia (D64.9), HTN (I12.9) Hyperkalemia, acidosis diabetes Mellitus with retinopathy, hypertension, morbid obesity, hx of PE on coumadin, left leg wound s/p BKA in sep 2016 now with fall proteinuria and microscopic hematuria Vit D def, hyperphos Plan No acute need for renal replacement therapy at this time. cr stable. diurese with lasix 80 mg IVP bid and metolazone 2.5 bid if unable to diurese adequately then will consider dialysis to manage his fluid status. Kidney biopsy will be difficult due to morbid obesity and currently on coumadin. empiric treatment such as steroids also with risks/complications such as hyperglycemia, infection, impaired worund healing. hence watchful recovery is pursued at this time. Hypertension control with meds as ordered. hold ACEI/ARB due to KIA. also d/c HCTZ. started on clonidine by cardiology started phos binders, sodium bicarb 1300 tid. continue with iron supplements and dose of aranesp 02/08/17. weekly Vit D as ordered. agree with kayexylate prn continue with flomax Monitor Input/Output, daily weights and renal function with basic metabolic panel Dose meds/antibiotics for reduced GFR. Avoid fleets enema/magnesium based laxatives. Avoid nephrotoxins/NSAIDs/ iodinated contrast (unless needed emergently) Glycemic control Further work up/management as per primary team Thanks for allowing me to participate in care of your patient. Will follow patient with you. Please call if any Qs. d/w primary team. Dr Gomez [place]ura Office: [phone] Chief Complaint; SOB today HPI: Pt is a 56 M with hx of diabetes Mellitus (35 years) with retinopathy, hypertension (30 years), morbid obesity, hx of PE on coumadin, left leg wound s/ p BKA in sep 2016 @ [facility], who was in a cruise presented with complaints of fall on left BKA stump and bleeding thereafter. he was also given IV antibiotics in cruise ? name of antibiotics. Denies chest pain, palpitation, c/o shortness of breath today Denies OTC/herbal meds but was taking NSAIDs prior to admission No recent iodinated contrast exposure. No obvious episodes of low BP. Physical Examination: General Appearance: Comfortable, in no acute respiratory distress, co- operative. morbid obesity Vitals reviewed and noted as below Head; Atraumatic, normocephalic ENT: no ulcers no thrush. Tongue is midline. Oropharynx: no rash or ulcers. EYES: Pupils are equal, round and reactive to light accommodation. Eye muscles and extraocular movement intact. Sclera is anicteric. Neck; supple no lymphadenopathy, no thyromegaly or bruit Lungs: Normal respiratory rate/effort. Breath sounds bilateral equal and decreased at bases with crackles Heart: Normal rate. s1s2 normal. No rub or gallop. Extremities: left BKA in dressing. RLE in dressing. Neurological: Patient is alert, awake and oriented to person, place and time. No focal deficit. Strength bilateral appropriate and equal Skin: Warm and dry. Normal turgor. No rash. Palpitation: Normal elasticity for age Abdomen: Abdomen is soft. Bowel sounds +. There is no abdominal tenderness, no guarding/rigidity no organomegaly Psych: normal insight and normal affect/mood MSK: no joint tenderness or swelling. Digits and nails normal, no deformity : kidney or bladder not palpable Labs/imaging reviewed. Past medical history, past surgical history, family history, social history, allergy reviewed and noted as below Family hx: no hx of CKD. Rest non-contributory Objective - Vital Signs/Intake and Output Vital Signs (last 24 hours): Temp Pulse Resp BP Pulse Ox 97.9 F 86 20 162/85 H 93 L 02/11/17 08:43 02/11/17 08:43 02/11/17 08:43 02/11/17 09:29 02/11/17 08:43 Intake and Output: 02/11/17 02/11/17 06:59 18:59 Intake Total 1090 80 Output Total 800 Balance 290 80 - Medications Medications: Current Medications Amlodipine Besylate (Norvasc) 10 mg PO DAILY [facility] Last Admin: 02/11/17 09:29 Dose: 10 mg Atorvastatin Calcium (Lipitor) 40 mg PO HS [facility] Last Admin: 02/10/17 22:06 Dose: 40 mg Calcium Acetate (Phoslo) 1,334 mg PO WM [facility] Last Admin: 02/11/17 09:26 Dose: 1,334 mg Clonidine HCl (Catapres) 0.1 mg PO BID [facility] Last Admin: 02/11/17 09:27 Dose: 0.1 mg Ergocalciferol (Drisdol 50,000 Intl Units Cap) 1 cap PO Q7D [facility] Last Admin: 02/07/17 10:34 Dose: 1 cap Ferrous Gluconate (Fergon) 324 mg PO TID [facility] Last Admin: 02/11/17 09:27 Dose: 324 mg Furosemide (Lasix) 80 mg IVP BID [facility] Last Admin: 02/11/17 15:08 Dose: Not Given Hydralazine HCl (Apresoline) 25 mg PO QID PRN PRN Reason: Other Hydromorphone HCl (Dilaudid) 0.5 mg IVP Q4H PRN PRN Reason: Pain, moderate (4-7) Last Admin: 02/10/17 20:54 Dose: 0.5 mg Heparin Sodium/Sodium Chloride (Heparin 44624 Units/250ml 1/2 Normal Saline) 25 ,000 units in 250 mls @ 20.003 mls/hr IV .[id number] PRN; Protocol; 9 UNITS/KG/HR PRN Reason: ADJUST RATE PER PROTOCOL Last Admin: 02/11/17 09:17 Dose: 11 units/kg/hr, 24.449 mls/hr Insulin Detemir (Levemir) 60 unit SC [facility] Last Admin: 02/10/17 22:05 Dose: 60 unit Insulin Human Lispro (Humalog Low) 0 units SC ACHS [facility] PRN Reason: Protocol Last Admin: 02/11/17 11:30 Dose: Not Given Insulin Human Lispro (Humalog) 36 units SC AC [facility] Last Admin: 02/11/17 11:30 Dose: Not Given Lactulose (Enulose) 20 gm PO TID [facility] Last Admin: 02/11/17 09:27 Dose: 20 gm Levofloxacin (Levaquin) 250 mg PO DAILY [facility] PRN Reason: Protocol Stop: 02/16/17 10:01 Last Admin: 02/11/17 09:26 Dose: 250 mg Metolazone (Zaroxolyn) 2.5 mg PO BID [facility] Stop: 02/15/17 10:01 Metoprolol Succinate (Toprol Xl) 25 mg PO DAILY [facility] Last Admin: 02/11/17 09:26 Dose: 25 mg Ondansetron HCl (Zofran Inj) 4 mg IVP Q4H PRN PRN Reason: Nausea/Vomiting Last Admin: 02/09/17 21:36 Dose: 4 mg Pantoprazole Sodium (Protonix Ec Tab) 40 mg PO DAILY [facility] Last Admin: 02/11/17 09:26 Dose: 40 mg Sodium Bicarbonate (Sodium Bicarbonate Tab) 1,300 mg PO TID [facility] Last Admin: 02/11/17 09:29 Dose: 1,300 mg Tamsulosin HCl (Flomax) 1 mg PO DAILY [facility] Last Admin: 02/11/17 09:25 Dose: 1 mg Topiramate (Topamax) 100 mg PO DAILY [facility] PRN Reason: Protocol Last Admin: 02/11/17 09:30 Dose: 100 mg Topiramate (Topamax) 50 mg PO HS [facility] PRN Reason: Protocol Venlafaxine HCl (Effexor Xr) 150 mg PO DAILY [facility] Last Admin: 02/11/17 09:25 Dose: 150 mg Warfarin Sodium (Coumadin) 10 mg PO 1800 [facility] Last Admin: 02/10/17 18:53 Dose: 10 mg Warfarin Sodium (Coumadin) 5 mg PO 1800 [facility] Last Admin: 02/10/17 18:53 Dose: 5 mg - Labs Labs: 02/11/17 07:00 02/11/17 07:00 PT 19.8 SECONDS (9.4-12.5) H 02/11/17 07:00 INR 1.78 (0.93-1.08) H 02/11/17 07:00 APTT 43.1 Seconds (25.1-36.5) H 02/11/17 10:20
[2017-02-11] MEDS: HYDROmorphone 0.5 mg/0.5 ml ISec IVP PRN (19:18)
[2017-02-11] MEDS: Insulin Detemir 100 units/ml Vial (Levemir) SC SCH (22:04)
--- NOTE | 2017-02-12 00:52 | PN ---
DATE: 02/11/2017 SUBJECTIVE: Patient is in bed, seen early this morning with mild shortness of breath, minimal cough. OBJECTIVE: VITAL SIGNS: Temperature is 97, blood pressure is 160/80, respiratory rate of 22, heart rate of 86. HEENT: Unremarkable. NECK: Supple. LUNGS: Decreased breath sounds. HEART: Normal S1, S2. ABDOMEN: Soft, nontender. Laboratory examination reveals a white count of 7.7, hemoglobin of 8, platelets of 313. Chemistries reveals a BUN of 111, creatinine is 4.0 and urinalysis is noted. Serology is noted. Microbiology reveals sensitive staph. Patient's chest x-ray yesterday is reviewed, band-like opacity, possible pneumonia. Case was discussed with Dr. Gibson who feels the patient's infiltrates are present. ASSESSMENT/PLAN: This is a 56-year-old male with morbid obesity, BMI of 55, hypertension, left below-knee amputation, admitted with severe left stump infection with a sensitive staph aureus cellulitis and developed a rash on Teflaro. Patient had a rapid response yesterday with shortness of breath and developed a new healthcare-associated, hospital associated pneumonia. We will discontinue the Levaquin and we will order a procalcitonin and sputum culture and start the patient on doxycycline and meropenem since the patient had allergy and developed a rash to Teflaro, unable to use cephalosporin. We will adjust the meropenem for renal failure and will make further recommendations. We will treat the patient with doxycycline and meropenem and repeat procalcitonin check on the sputum culture and case discussed with Dr. Gibson. Kobe Brownlee MD
[2017-02-12] MEDS: Heparin25000 units/250ml 1/2NS 25,000 UNITS/250 ML BAG IV PRN ×2 (06:23→23:04)
--- NOTE | 2017-02-12 07:53 | CP.PCM.PN ---
Subjective - Date & Time of Evaluation Date of Evaluation: 02/12/17 Time of Evaluation: 07:50 - Subjective Subjective: Surgery Progress note. Dr. Santiago Patient seen and evaluated at bedside. No acute events overnight. Denies any N/V /D. No Abd pain. No F/C. Pain well controlled. Does report decreased appetite. No new complaints. Objective - Vital Signs/Intake and Output Vital Signs (last 24 hours): Temp Pulse Resp BP Pulse Ox 98.3 F 85 20 157/83 H 91 L 02/12/17 01:00 02/12/17 01:19 02/12/17 01:00 02/12/17 01:00 02/12/17 01:00 Intake and Output: 02/12/17 02/12/17 06:59 18:59 Intake Total 1090 Output Total 2700 Balance -1610 - Medications Medications: Current Medications Amlodipine Besylate (Norvasc) 10 mg PO DAILY [facility] Last Admin: 02/11/17 09:29 Dose: 10 mg Atorvastatin Calcium (Lipitor) 40 mg PO HS [facility] Last Admin: 02/11/17 22:27 Dose: 40 mg Calcium Acetate (Phoslo) 1,334 mg PO WM [facility] Last Admin: 02/11/17 18:43 Dose: 1,334 mg Clonidine HCl (Catapres) 0.1 mg PO BID [facility] Last Admin: 02/11/17 18:38 Dose: 0.1 mg Doxycycline Hyclate (Doryx) 100 mg PO Q12 [facility] PRN Reason: Protocol Stop: 02/20/17 22:01 Last Admin: 02/11/17 22:27 Dose: 100 mg Ergocalciferol (Drisdol 50,000 Intl Units Cap) 1 cap PO Q7D [facility] Last Admin: 02/07/17 10:34 Dose: 1 cap Ferrous Gluconate (Fergon) 324 mg PO TID [facility] Last Admin: 02/11/17 18:38 Dose: 324 mg Furosemide (Lasix) 80 mg IVP BID [facility] Last Admin: 02/11/17 18:42 Dose: 80 mg Hydralazine HCl (Apresoline) 25 mg PO QID PRN PRN Reason: Other Hydromorphone HCl (Dilaudid) 0.5 mg IVP Q4H PRN PRN Reason: Pain, moderate (4-7) Last Admin: 02/11/17 19:18 Dose: 0.5 mg Heparin Sodium/Sodium Chloride (Heparin 72306 Units/250ml 1/2 Normal Saline) 25 ,000 units in 250 mls @ 20.003 mls/hr IV .[id number] PRN; Protocol; 9 UNITS/KG/HR PRN Reason: ADJUST RATE PER PROTOCOL Last Admin: 02/12/17 06:23 Dose: 11.42 units/kg/hr, 25.4 mls/hr Meropenem 250 mg/ Sodium (Chloride) 100 mls @ 100 mls/hr IVPB Q12H [facility] PRN Reason: Protocol Last Admin: 02/11/17 23:01 Dose: 100 mls/hr Insulin Detemir (Levemir) 60 unit SC HS [facility] Last Admin: 02/11/17 22:04 Dose: Not Given Insulin Human Lispro (Humalog Low) 0 units SC ACHS [facility] PRN Reason: Protocol Last Admin: 02/11/17 22:04 Dose: Not Given Insulin Human Lispro (Humalog) 36 units SC AC [facility] Last Admin: 02/11/17 17:00 Dose: 36 units Lactulose (Enulose) 20 gm PO TID [facility] Last Admin: 02/11/17 18:36 Dose: 20 gm Metolazone (Zaroxolyn) 2.5 mg PO BID [facility] Stop: 02/15/17 10:01 Last Admin: 02/11/17 18:37 Dose: 2.5 mg Metoprolol Succinate (Toprol Xl) 25 mg PO DAILY [facility] Last Admin: 02/11/17 09:26 Dose: 25 mg Ondansetron HCl (Zofran Inj) 4 mg IVP Q4H PRN PRN Reason: Nausea/Vomiting Last Admin: 02/11/17 19:18 Dose: 4 mg Pantoprazole Sodium (Protonix Ec Tab) 40 mg PO DAILY [facility] Last Admin: 02/11/17 09:26 Dose: 40 mg Sodium Bicarbonate (Sodium Bicarbonate Tab) 1,300 mg PO TID [facility] Last Admin: 02/11/17 18:37 Dose: 1,300 mg Tamsulosin HCl (Flomax) 1 mg PO DAILY [facility] Last Admin: 02/11/17 09:25 Dose: 1 mg Topiramate (Topamax) 100 mg PO DAILY [facility] PRN Reason: Protocol Last Admin: 02/11/17 09:30 Dose: 100 mg Topiramate (Topamax) 50 mg PO HS [facility] PRN Reason: Protocol Last Admin: 02/11/17 22:27 Dose: 50 mg Venlafaxine HCl (Effexor Xr) 150 mg PO DAILY [facility] Last Admin: 02/11/17 09:25 Dose: 150 mg Warfarin Sodium (Coumadin) 10 mg PO 1800 [facility] Last Admin: 02/11/17 18:36 Dose: 10 mg Warfarin Sodium (Coumadin) 5 mg PO 1800 [facility] Last Admin: 02/11/17 18:36 Dose: 5 mg - Labs Labs: 02/11/17 07:00 02/11/17 07:00 PT 19.8 SECONDS (9.4-12.5) H 02/11/17 07:00 INR 1.78 (0.93-1.08) H 02/11/17 07:00 APTT 64.3 Seconds (25.1-36.5) H 02/12/17 01:00 - Constitutional Appears: Non-toxic, No Acute Distress - Head Exam Head Exam: ATRAUMATIC, NORMAL INSPECTION, NORMOCEPHALIC - Eye Exam Eye Exam: EOMI - ENT Exam ENT Exam: Mucous Membranes Moist - Respiratory Exam Respiratory Exam: NORMAL BREATHING PATTERN. absent: Accessory Muscle Use, Respiratory Distress - GI/Abdominal Exam GI & Abdominal Exam: Soft. absent: Distended, Guarding, Rigid, Tenderness - Extremities Exam Additional comments: Left lower BKA wound, wound vac in place. to suction, no air leaks. minimal serosang output Right lower extremity, wrapped with kerlex and bradley. - Neurological Exam Neurological Exam: Alert, Awake, Oriented x3 Assessment and Plan - Assessment and Plan (Free Text) Assessment: 56yo M with LLE BKA stump trauma and infection. S/p wound debridement on - Abx as per ID - Medical management per primary - Continue wound vac - Recommend dietary supplements - Patient clear for discharge from surgical standpoint Further recs as per Dr. Jack Diop PGY1 surgery pager: [phone]
[2017-02-12 08:01] LABS: HEMOGLOBIN 9.1 g/dL (14.0-18.0); MEAN CELL VOLUME 83.3 fl (80.0-105.0); MEAN CORPUSCULAR HEMOGLOBIN 27.1 pg (25.0-35.0); MEAN CORPUSCULAR HGB CONC 32.5 g/dl (31.0-37.0); MEAN PLATELET VOLUME 8.9 fl (7.0-11.0); RBC 3.36 10^6/uL (3.5-6.1); RED CELL DISTRIBUTION WIDTH 14.2 % (11.5-14.5); WHITE BLOOD COUNT 8.3 10^3/ul (4.5-11.0)
[2017-02-12 08:11] LABS: PROTHROMBIN TIME 24.9 SECONDS (9.4-12.5)
[2017-02-12 08:12] LABS: INR 2.23 (0.93-1.08); PARTIAL THROMBOPLASTIN TIME 52.9 Seconds (25.1-36.5)
[2017-02-12 08:24] LABS: ALB/GLOB RATIO 0.7 (1.1-1.8); ALBUMIN 2.8 g/dL (3.0-4.8); CALCIUM 8.8 mg/dL (8.4-10.5)
[2017-02-12] MEDS: Venlafaxine 75 mg ER Cap PO SCH (09:11)
[2017-02-12] MEDS: Metoprolol Succinate 25 mg XL Tab PO SCH (09:13)
[2017-02-12] MEDS: Pantoprazole 40 mg EC Tab PO SCH (09:15)
[2017-02-12] MEDS: Insulin Lispro 1 UNITS/0.01 ML SC SCH ×3 (09:22→18:46)
[2017-02-12] MEDS: HYDROmorphone 0.5 mg/0.5 ml ISec IVP PRN ×2 (10:30→23:54)
[2017-02-12] MEDS: Insulin Lispro (humaLOG) LOW Coverage SC SCH ×4 (10:53→22:06)
--- NOTE | 2017-02-12 13:46 | RAD ---
HISTORY: Cellulitis of left leg, wound infection. CHF suspected COMPARISON: 02/10/2017 portable chest. FINDINGS: LUNGS: Progressive infiltrates right lower lobe. PLEURA: No significant pleural effusion identified, no pneumothorax apparent. CARDIOVASCULAR: Cardiomegaly. No evidence of acute, significant cardiovascular disease. OSSEOUS STRUCTURES: No significant abnormalities. VISUALIZED UPPER ABDOMEN: Normal. OTHER FINDINGS: None. IMPRESSION: Worsening infiltrates primarily right lower lobe. Right upper lobe infiltrate is also identified
--- NOTE | 2017-02-12 14:54 | PN ---
DATE: 02/12/2017 PULMONARY PROGRESS NOTE SUBJECTIVE: The patient is lying in bed, inability to get around too much. He states that he is feeling significantly better than yesterday. He continues to improve slightly each day. He is anxious to get out of the hospital. He denies being acutely short of breath, but does get dyspneic on movement in his bed. PHYSICAL EXAMINATION: VITAL SIGNS: Stable. He is afebrile. Heart rate is 86, respiratory rate is 18, blood pressure is 160/80, and O2 saturation is 96% on nasal cannula oxygen. HEENT: Normocephalic and atraumatic. NECK: Supple. No JVD. No lymphadenopathy. No bruit. No mass. No thyromegaly. CARDIOVASCULAR: Regular rhythm, S1 and S2. No murmur, gallop or rub is noted. CHEST: Clear movement. Decreased breath sounds at the bases as we would expect in the patient at his size. Lungs are essentially clear without rales, rhonchi, or wheezes. ABDOMEN: Massive soft and nontender. EXTREMITIES: Reveal no clubbing, cyanosis or edema, but there is a left BKA stump. The right leg shows edema. There is cyanosis noted on the right leg. SKIN: Shows no rashes or excoriation. NEUROLOGIC: No focal findings. The patient is awake, alert and oriented. He is moving his upper extremities without problems. Lymphadenopathy is not present. There are no lymph nodes noted in the supraclavicular notch or in the inguinal axillary or cervical areas. DIAGNOSTIC DATA: Last x-ray was quite a few days ago with questionable infiltrate with Dr. Gibson was aware of this at the time. We will need to repeat a chest x-ray to make sure, there is no progression. CLINICAL IMPRESSION: 1. Left below-knee amputation. 2. Morbid obesity. 3. Obstructive sleep apnea. 4. Rule out new pneumonia (hospital acquiring). 5. Hypoxemia. 6. Chronic renal disease. PLAN: Repeat x-ray to make sure there is no new infiltrate. It is difficult with the gentleman of this size to penetrate the entire chest cavity, but we will see what can be done. Continue to treat bronchospasm. Await further evaluation of the stump on anticoagulation at this time. We will follow up closely with you. Discussed with PMD. Jose Alejandro Isidro MD [facility] # [id number]
--- NOTE | 2017-02-12 15:40 | PN ---
DATE: ENDO FOLLOWUP NOTE LOCATION: Room 571. SUBJECTIVE: This is a 56-year-old male with recent uncontrolled type 2 insulin-requiring diabetes, currently receiving IV antibiotics and local debridement for a left below-knee amputation stump cellulitis. His glycemic levels are fluctuating, but much improved at this time and the latest glucose levels have ranged from 129 to 174 mg/dL. His latest chemistry showed a BUN of 106, sodium 140, potassium 4.8, chloride 106, CO2 of 23, glucose 177 and creatinine 3.6. So at this time, we will continue the high-dose basal and bolus insulin regimen to allow for dose equilibration and keep him on the Levemir given as 60 units subcu at bedtime daily as ordered. We will continue the Humalog given as 36 units subcu t.i.d. before meals as ordered. We will titrate incremental as indicated to optimize metabolic control. We will continue the low-dose correction scale using Humalog insulin as given to obviate hypoglycemia. Serial chemistries would be obtained and will supplement accordingly as needed. Ania Hernandez MD
--- NOTE | 2017-02-12 17:42 | CP.PCM.PN ---
Subjective - Date & Time of Evaluation Date of Evaluation: 02/12/17 Time of Evaluation: 17:00 - Subjective Subjective: renal follow up note please call [phone] sob is improved Physical Examination: General Appearance: Comfortable, in no acute respiratory distress, co- operative. morbid obesity Vitals reviewed Head; Atraumatic, normocephalic ENT: no ulcers no thrush. EYES: Sclera is anicteric. Neck; supple Lungs: Normal respiratory rate/effort. Heart: Normal rate. s1s2 normal. No rub or gallop. Extremities: left BKA in dressing. Neurological: Patient is alert, awake and oriented to person, place and time. No focal deficit. Strength bilateral appropriate and equal Skin: Warm and dry. Abdomen: Abdomen is soft. Bowel sounds +. Psych: normal insight and normal affect/mood MSK: no joint tenderness or swelling Acute Kidney Injury (N17.9) unclear etiology. possible AIN considering recent antibiotics/NSAIDs, rash or acute tubular necrosis: stable Hypoxia Diabetic chronic Kidney Disease (E11.22) Hypertensive Chronic Kidney Disease (I12.9) Anemia (D64.9), HTN (I12.9) Hyperkalemia, acidosis diabetes Mellitus with retinopathy, hypertension, morbid obesity, hx of PE on coumadin, left leg wound s/p BKA in sep 2016 now with fall proteinuria and microscopic hematuria Vit D def, hyperphos Plan No acute need for renal replacement therapy at this time. cr stable. continue diuresis Kidney biopsy will be difficult due to morbid obesity and currently on coumadin. Hypertension control with meds as ordered. hold ACEI/ARB due to KIA started phos binders, sodium bicarb 1300 tid. continue with iron supplements and dose of aranesp 02/08/17 continue with flomax Objective - Vital Signs/Intake and Output Vital Signs (last 24 hours): Temp Pulse Resp BP Pulse Ox 98.4 F 84 20 179/86 H 93 L 02/12/17 15:37 02/12/17 15:37 02/12/17 15:37 02/12/17 15:37 02/12/17 15:37 Intake and Output: 02/12/17 02/12/17 06:59 18:59 Intake Total 1090 820 Output Total 2700 1100 Balance -1610 -280 - Medications Medications: Current Medications Amlodipine Besylate (Norvasc) 10 mg PO DAILY [facility] Last Admin: 02/12/17 09:13 Dose: 10 mg Atorvastatin Calcium (Lipitor) 40 mg PO HS [facility] Last Admin: 02/11/17 22:27 Dose: 40 mg Calcium Acetate (Phoslo) 1,334 mg PO WM [facility] Last Admin: 02/12/17 15:45 Dose: 1,334 mg Clonidine HCl (Catapres) 0.1 mg PO BID [facility] Last Admin: 02/12/17 09:16 Dose: 0.1 mg Doxycycline Hyclate (Doryx) 100 mg PO Q12 [facility] PRN Reason: Protocol Stop: 02/20/17 22:01 Last Admin: 02/12/17 09:12 Dose: 100 mg Ergocalciferol (Drisdol 50,000 Intl Units Cap) 1 cap PO Q7D [facility] Last Admin: 02/07/17 10:34 Dose: 1 cap Ferrous Gluconate (Fergon) 324 mg PO TID [facility] Last Admin: 02/12/17 09:12 Dose: 324 mg Furosemide (Lasix) 80 mg IVP BID [facility] Last Admin: 02/11/17 18:42 Dose: 80 mg Hydralazine HCl (Apresoline) 25 mg PO QID PRN PRN Reason: Other Hydromorphone HCl (Dilaudid) 0.5 mg IVP Q4H PRN PRN Reason: Pain, moderate (4-7) Last Admin: 02/12/17 10:30 Dose: 0.5 mg Heparin Sodium/Sodium Chloride (Heparin 83667 Units/250ml 1/2 Normal Saline) 25 ,000 units in 250 mls @ 20.003 mls/hr IV .[id number] PRN; Protocol; 9 UNITS/KG/HR PRN Reason: ADJUST RATE PER PROTOCOL Last Admin: 02/12/17 06:23 Dose: 11.42 units/kg/hr, 25.4 mls/hr Meropenem 250 mg/ Sodium (Chloride) 100 mls @ 100 mls/hr IVPB Q12H [facility] PRN Reason: Protocol Last Admin: 02/12/17 15:44 Dose: 100 mls/hr Insulin Detemir (Levemir) 60 unit SC HS [facility] Last Admin: 02/11/17 22:04 Dose: Not Given Insulin Human Lispro (Humalog Low) 0 units SC ACHS [facility] PRN Reason: Protocol Last Admin: 02/12/17 15:55 Dose: 1 units Insulin Human Lispro (Humalog) 36 units SC AC [facility] Last Admin: 02/12/17 15:28 Dose: 36 units Lactulose (Enulose) 20 gm PO TID [facility] Last Admin: 02/12/17 15:51 Dose: 20 gm Metolazone (Zaroxolyn) 2.5 mg PO BID [facility] Stop: 02/15/17 10:01 Last Admin: 02/11/17 18:37 Dose: 2.5 mg Metoprolol Succinate (Toprol Xl) 25 mg PO DAILY [facility] Last Admin: 02/12/17 09:13 Dose: 25 mg Ondansetron HCl (Zofran Inj) 4 mg IVP Q4H PRN PRN Reason: Nausea/Vomiting Last Admin: 02/12/17 10:29 Dose: 4 mg Pantoprazole Sodium (Protonix Ec Tab) 40 mg PO DAILY [facility] Last Admin: 02/12/17 09:15 Dose: 40 mg Sodium Bicarbonate (Sodium Bicarbonate Tab) 1,300 mg PO TID [facility] Last Admin: 02/12/17 13:00 Dose: 1,300 mg Tamsulosin HCl (Flomax) 1 mg PO DAILY [facility] Last Admin: 02/12/17 09:14 Dose: 1 mg Topiramate (Topamax) 100 mg PO DAILY [facility] PRN Reason: Protocol Last Admin: 02/12/17 09:12 Dose: 100 mg Topiramate (Topamax) 50 mg PO HS [facility] PRN Reason: Protocol Last Admin: 02/11/17 22:27 Dose: 50 mg Venlafaxine HCl (Effexor Xr) 150 mg PO DAILY [facility] Last Admin: 02/12/17 09:11 Dose: 150 mg Warfarin Sodium (Coumadin) 10 mg PO 1800 [facility] Last Admin: 02/11/17 18:36 Dose: 10 mg Warfarin Sodium (Coumadin) 5 mg PO 1800 [facility] Last Admin: 02/11/17 18:36 Dose: 5 mg - Labs Labs: 02/12/17 07:30 02/12/17 07:30 PT 24.9 SECONDS (9.4-12.5) H 02/12/17 07:30 INR 2.23 (0.93-1.08) H 02/12/17 07:30 APTT 52.9 Seconds (25.1-36.5) H 02/12/17 07:30
--- NOTE | 2017-02-12 18:03 | PN ---
DATE: 02/12/2017 SUBJECTIVE: The patient is in bed in no acute distress, nontoxic. PHYSICAL EXAMINATION: VITAL SIGNS: Temperature is 98, blood pressure is 150/90, respiratory rate of 16. HEENT: Unremarkable. NECK: Supple. LUNGS: Have decreased breath sounds. HEART: Normal S1, S2. ABDOMEN: Soft. LABORATORY EXAMINATION: Reveals a white count of 8.3, hemoglobin of 9, platelets of 331. Chemistries reveals a BUN of 106, creatinine of 3.6. Procalcitonin is 0.32 and microbiology is noted with sensitive Staphylococcus aureus from the left stump.. Review of the orders reveals the patient to be on meropenem and doxycycline day number 2. The patient had a chest x-ray today. Chest x-ray is worsening infiltrate. However, of note is that the procalcitonin from yesterday, actually from today is 0.32, unremarkable. ASSESSMENT AND PLAN: A 56-year-old male with morbid obesity, BMI of 55, hypertension, history of left below-knee amputation, admitted with severe left stump infection with sensitive Staphylococcus aureus cellulitis developed a rash on Teflaro. The patient developed a new healthcare-associated, hospital acquired pneumonia on Levaquin currently on meropenem and doxycycline day number 2 with a normal procalcitonin. We will follow with you. Kobe Brownlee MD
[2017-02-12] MEDS: metOLazone 2.5 MG TAB PO SCH ×2 (19:44→19:58)
[2017-02-12] MEDS: Insulin Detemir 100 units/ml Vial (Levemir) SC SCH (22:06)
[2017-02-13 03:20] LABS: HEMOGLOBIN 8.7 g/dL (14.0-18.0); MEAN CELL VOLUME 84.3 fl (80.0-105.0); MEAN CORPUSCULAR HEMOGLOBIN 27.3 pg (25.0-35.0); MEAN CORPUSCULAR HGB CONC 32.3 g/dl (31.0-37.0); MEAN PLATELET VOLUME 8.5 fl (7.0-11.0); RBC 3.19 10^6/uL (3.5-6.1); WHITE BLOOD COUNT 6.5 10^3/ul (4.5-11.0)
[2017-02-13 03:39] LABS: ALB/GLOB RATIO 0.7 (1.1-1.8); ALBUMIN 2.8 g/dL (3.0-4.8); CALCIUM 8.5 mg/dL (8.4-10.5)
[2017-02-13] MEDS: Insulin Lispro (humaLOG) LOW Coverage SC SCH ×4 (08:12→22:30)
[2017-02-13] MEDS: Insulin Lispro 1 UNITS/0.01 ML SC SCH (08:23)
[2017-02-13] MEDS: HYDROmorphone 0.5 mg/0.5 ml ISec IVP PRN ×2 (08:30→18:03)
[2017-02-13] MEDS: Heparin25000 units/250ml 1/2NS 25,000 UNITS/250 ML BAG IV PRN ×2 (08:32→18:04)
[2017-02-13 09:04] LABS: INR 3.39 (0.93-1.08); PARTIAL THROMBOPLASTIN TIME 73.5 Seconds (25.1-36.5); PROTHROMBIN TIME 38.2 SECONDS (9.4-12.5)
[2017-02-13] MEDS ORDERED: Insulin Lispro 1 UNITS/0.01 ML SC SCH ×2 (10:05→22:00)
--- NOTE | 2017-02-13 10:18 | CARD ---
APPROVED REPORT EKG Measurement Heart [id number] <Conclusion> Normal sinus rhythm Small q waves lll, AVF, possible IMI, age unknown NSSTW changes No change
[2017-02-13] MEDS: Pantoprazole 40 mg EC Tab PO SCH (11:08)
[2017-02-13] MEDS: Metoprolol Succinate 25 mg XL Tab PO SCH (11:08)
[2017-02-13] MEDS: Venlafaxine 75 mg ER Cap PO SCH (11:10)
[2017-02-13] MEDS: metOLazone 2.5 MG TAB PO SCH ×2 (11:10→17:25)
--- NOTE | 2017-02-13 11:51 | PN ---
DATE: SUBJECTIVE: He is resting comfortably in bed. He is having a rough go. Now he is coughing and little short of breath. He does have worsening pneumonia on chest x-ray. His stumps left BK wound, has a wound VAC on it. His kidney functions are also off, but they are improving. He is in no pain. He did not move bowels. PHYSICAL EXAMINATION: VITAL SIGNS: Temperature 97.8, pulse 76, blood pressure 152/79, respiratory rate 20, and O2 saturation 94% on room air. He weighs 490 pounds. HEENT: Head is atraumatic and normocephalic. Throat is moist. NECK: Supple. HEART: Regular rate. LUNGS: Decreased breath sounds bilaterally. Poor inspiration. He is so big it is hard to get a good look into his lungs. ABDOMEN: Morbidly, morbidly obese. No apparent palpable tenderness. He has bowel sounds, which are faint. EXTREMITIES: He has a left BKA with a wound VAC on the stump. It by Surgery. It looks noninfected at this time and the right leg does have less edema. It has definitely improved and strapped off with DEBORAH bandages. LABORATORY DATA: He has a white count of 6.5, hemoglobin 8.7, we will keep an eye on that, the lowest he has been, hopefully we want to transfuse him, if it drops below 8 we will, hematocrit 26.8, and platelets 316. In INR finally broke to 3.39, we will hold the Coumadin today, dropping down to 5 mg tomorrow. He has a sodium 137, potassium 4.5, BUN 106, creatinine 3.5, the best has been, the kidneys are starting to improve. His blood sugar was 236, it was as high as 300. I will adjust his insulin once more. AST 33, ALT is 24, and alkaline phosphatase 191. Troponin I was 0.02. He had some chest pain this morning and indigestion. The troponin this morning was 0.02, which is good. Albumin is 2.8. MEDICATIONS: He is currently Apresoline, Catapres, Coumadin, Dilaudid, Doryx, Drisdol, Effexor, Enulose, Fergon, Flomax, heparin IV, insulin, Lasix IV, Levemir, Lipitor, Merrem IV, Norvasc, PhosLo, Protonix, sodium bicarbonate, Topamax, metoprolol, Zaroxolyn, and Zofran. ASSESSMENT AND PLAN: He is being seen by multiple physicians. Infectious Disease, Endocrinology, Pulmonology, Surgery, Renal, Cardiology. He has got numerous issues going on and he is morbidly obese. We are trying to attend all his issues, as they come around and at this time, we will try and change his antibiotics to get him better coverage for his pneumonia. We will check his labs tomorrow. Pedrito Tee DO
--- NOTE | 2017-02-13 12:51 | CP.PCM.PN ---
Subjective - Date & Time of Evaluation Date of Evaluation: 02/13/17 Time of Evaluation: 12:47 - Subjective Subjective: Surgery Pt s&e. NAEON. Denies F/C/N/V/D/Cp. Tolerating diet. Objective - Vital Signs/Intake and Output Vital Signs (last 24 hours): Temp Pulse Resp BP Pulse Ox 97.8 F 76 20 152/79 H 94 L 02/13/17 07:30 02/13/17 11:12 02/13/17 07:30 02/13/17 11:12 02/13/17 07:30 Intake and Output: 02/13/17 02/13/17 06:59 18:59 Intake Total 790 250 Output Total 1300 Balance -510 250 - Medications Medications: Current Medications Amlodipine Besylate (Norvasc) 10 mg PO DAILY [facility] Last Admin: 02/13/17 11:11 Dose: 10 mg Atorvastatin Calcium (Lipitor) 40 mg PO HS [facility] Last Admin: 02/12/17 22:07 Dose: 40 mg Calcium Acetate (Phoslo) 1,334 mg PO WM [facility] Last Admin: 02/13/17 12:06 Dose: Not Given Clonidine HCl (Catapres) 0.1 mg PO BID [facility] Last Admin: 02/13/17 11:12 Dose: 0.1 mg Doxycycline Hyclate (Doryx) 100 mg PO Q12 [facility] PRN Reason: Protocol Stop: 02/20/17 22:01 Last Admin: 02/13/17 11:08 Dose: 100 mg Ergocalciferol (Drisdol 50,000 Intl Units Cap) 1 cap PO Q7D [facility] Last Admin: 02/07/17 10:34 Dose: 1 cap Ferrous Gluconate (Fergon) 324 mg PO TID [facility] Last Admin: 02/12/17 19:12 Dose: 324 mg Furosemide (Lasix) 80 mg IVP BID [facility] Last Admin: 02/13/17 11:12 Dose: 80 mg Hydralazine HCl (Apresoline) 25 mg PO QID PRN PRN Reason: Other Hydromorphone HCl (Dilaudid) 0.5 mg IVP Q4H PRN PRN Reason: Pain, moderate (4-7) Last Admin: 02/13/17 08:30 Dose: 0.5 mg Heparin Sodium/Sodium Chloride (Heparin 00749 Units/250ml 1/2 Normal Saline) 25 ,000 units in 250 mls @ 20.003 mls/hr IV .[id number] PRN; Protocol; 9 UNITS/KG/HR PRN Reason: ADJUST RATE PER PROTOCOL Last Admin: 02/13/17 08:32 Dose: 12.32 units/kg/hr, 27.4 mls/hr Meropenem 250 mg/ Sodium (Chloride) 100 mls @ 100 mls/hr IVPB Q12H [facility] PRN Reason: Protocol Last Admin: 02/13/17 11:06 Dose: 100 mls/hr Insulin Detemir (Levemir) 60 unit SC HS [facility] Last Admin: 02/12/17 22:06 Dose: 60 unit Insulin Human Lispro (Humalog Low) 0 units SC ACHS [facility] PRN Reason: Protocol Last Admin: 02/13/17 12:05 Dose: Not Given Insulin Human Lispro (Humalog) 38 units SC AC [facility] Last Admin: 02/13/17 12:06 Dose: Not Given Lactulose (Enulose) 20 gm PO TID [facility] Last Admin: 02/13/17 11:06 Dose: 20 gm Metolazone (Zaroxolyn) 2.5 mg PO BID [facility] Stop: 02/15/17 10:01 Last Admin: 02/13/17 11:10 Dose: 2.5 mg Metoprolol Succinate (Toprol Xl) 25 mg PO DAILY [facility] Last Admin: 02/13/17 11:08 Dose: 25 mg Ondansetron HCl (Zofran Inj) 4 mg IVP Q4H PRN PRN Reason: Nausea/Vomiting Last Admin: 02/13/17 08:30 Dose: 4 mg Pantoprazole Sodium (Protonix Ec Tab) 40 mg PO DAILY [facility] Last Admin: 02/13/17 11:08 Dose: 40 mg Sodium Bicarbonate (Sodium Bicarbonate Tab) 1,300 mg PO TID [facility] Last Admin: 02/13/17 11:09 Dose: 1,300 mg Tamsulosin HCl (Flomax) 1 mg PO DAILY [facility] Last Admin: 02/13/17 11:06 Dose: 1 mg Topiramate (Topamax) 100 mg PO DAILY [facility] PRN Reason: Protocol Last Admin: 02/13/17 11:08 Dose: 100 mg Topiramate (Topamax) 50 mg PO [facility] PRN Reason: Protocol Last Admin: 02/12/17 22:08 Dose: 50 mg Venlafaxine HCl (Effexor Xr) 150 mg PO DAILY [facility] Last Admin: 02/13/17 11:10 Dose: 150 mg Warfarin Sodium (Coumadin) 5 mg PO 1800 [facility] Last Admin: 02/12/17 19:12 Dose: 5 mg - Labs Labs: 02/13/17 03:05 02/13/17 03:05 PT 38.2 SECONDS (9.4-12.5) H 02/13/17 08:30 INR 3.39 (0.93-1.08) H 02/13/17 08:30 APTT 73.5 Seconds (25.1-36.5) H 02/13/17 08:30 - Constitutional Appears: No Acute Distress - Head Exam Head Exam: ATRAUMATIC, NORMAL INSPECTION, NORMOCEPHALIC - Eye Exam Eye Exam: EOMI, Normal appearance, PERRL Pupil Exam: NORMAL ACCOMODATION, PERRL - ENT Exam ENT Exam: Mucous Membranes Moist, Normal Exam - Neck Exam Neck Exam: Full ROM, Normal Inspection. absent: Lymphadenopathy - Respiratory Exam Respiratory Exam: Clear to Ausculation Bilateral, NORMAL BREATHING PATTERN - Cardiovascular Exam Cardiovascular Exam: REGULAR RHYTHM, +S1, +S2. absent: Murmur - GI/Abdominal Exam GI & Abdominal Exam: Soft, Normal Bowel Sounds. absent: Tenderness - Extremities Exam Extremities Exam: Pedal Edema. absent: Normal Inspection, Tenderness Additional comments: L BKA. Vac in place. No leak. - Back Exam Back Exam: NORMAL INSPECTION - Neurological Exam Neurological Exam: Alert, Awake, CN II-XII Intact, Oriented x3 - Psychiatric Exam Psychiatric exam: Normal Affect, Normal Mood - Skin Skin Exam: Dry, Warm Assessment and Plan - Assessment and Plan (Free Text) Assessment: 56yo M with LLE BKA stump trauma and infection. S/p wound debridement on - Abx as per ID - Medical management per primary - Continue wound vac. Will DC wound vac when pt get DCed. - Awaiting bed at [place] - Recommend dietary supplements - Patient clear for discharge from surgical standpoint ANA MARIA Santiago
--- NOTE | 2017-02-13 13:11 | PN ---
DATE: 02/03/2017 PULMONARY PROGRESS NOTE SUBJECTIVE: Patient is essentially the same as yesterday. Not feeling worse, although we did repeat an x-ray, which showed progression of infiltrates. This fact is known to the infectious disease gift consultant. I read his note and he wishes to continue the current antibiotics. This will be further evaluated in the near future. If x-rays continues to worsen, then I would strongly suggest changing the antibiotics after full cultures are taken. PHYSICAL EXAMINATION GENERAL: The patient remains comfortable. VITAL SIGNS: Afebrile, his heart rate is 86, respiratory rate 20, blood pressure of 158/78, and O2 sat 96%. HEENT: Normocephalic and atraumatic. NECK: Supple. No JVD. No lymphadenopathy or bruit. CARDIOVASCULAR: Regular rhythm, S1 and S2 without murmur, gallop or rub. CHEST: Good air movement. Decreased breath sounds at the bases. Scattered rhonchi throughout. ABDOMEN: Soft. Bowel sounds normoactive without mass, guarding or rebound. No organomegaly. EXTREMITIES: Reveal no clubbing, cyanosis or edema. There is a BKA stump as described yesterday. There were no additional changes noted. DIAGNOSTIC DATA: X-rays done as ordered yesterday shows a progression of infiltrate. IMPRESSION: 1. The progression of the infiltrate is commented on by the infectious disease specialist Dr. Kobe Brownlee, he will continue monitoring this patient on the current antibiotics. I would monitor closely and see if this does respond, certainly a change in antibiotics might be appropriate. 2. Morbid obesity. 3. Left below-knee amputation. 4. Obstructive sleep apnea. 5. Hypoxemia. 6. Chronic renal disease. PLAN: 1. Continue antibiotics prescribed. Discussed with Dr. Brownlee. 2. Repeat chest x-ray in the morning. 3. We would strongly suggest obtaining new sputums and see if we need to change the antibiotics presently receiving. This is a localized unilateral infection, hospital acquired pneumonia. I will discuss in length with PMD, Dr. Tee and infectious disease Dr. Brownlee, Dr Gibson, my colleague will take over me tomorrow, I will discuss the problem with him and close followup. Jose Alejandro Burghauser, MD [facility] # [id number] MTDD
--- NOTE | 2017-02-13 17:42 | PN ---
DATE: Room 571 SUBJECTIVE: This is a 56-year-old male with recent uncontrolled type 2 insulin-requiring diabetes, now being followed closely for metabolic management. His glycemic levels are still fluctuating as noted thereof and the latest glucose levels overnight were extremely elevated, ranging from 280-328 mg/dL. Today's glucose have ranged from 169 to 236 mg/dL. The latest chemistry showed a BUN of 106, sodium 137, potassium 4.5, chloride 103, CO2 23, glucose 300, and creatinine 3.5. PLAN: So at this time, we will modify once again his basal insulin and increase the Levemir to 70 units subcu at bedtime daily to start tonight. We will continue the low-dose correction scale using Humalog insulin as given. We will titrate incrementally as indicated to optimize metabolic control. We will also increase the prandial insulin with Humalog to be given as 40 units subcu t.i.d. before meals to start at dinnertime today as ordered. We will titrate incrementally as indicated to optimize metabolic control. We will obtain serial chemistries and supplement accordingly as needed. We will follow. Ania Hernandez MD
--- NOTE | 2017-02-13 18:56 | PN ---
DATE: 02/13/2017 SUBJECTIVE: The patient seen in bed in no acute distress and nontoxic. PHYSICAL EXAMINATION: VITAL SIGNS: Temperature is 97, blood pressure is 150/70, respiratory rate of 16. HEENT: Examination of HEENT is unremarkable. NECK: Supple. LUNGS: Have decreased breath sounds. HEART: Normal S1, S2. ABDOMEN: Soft, nontender. LABORATORY EXAMINATION: Reveals a white count of 6.5, hemoglobin of 8, platelets of 316. Coagulation is noted. Chemistries reveal a BUN of 106, creatinine of 3.5, alk phos is 191. Urinalysis is noted. Serology is noted. HIV is negative. Left foot culture is noted to have a sensitive staph. Dr. Tee's note is reviewed from today. Dr. Isidro's note is reviewed. The patient had a chest x-ray yesterday read by Dr. Pedrito Mack which states a progressive infiltrate of the right lower lobe. HIV is negative. Hepatitis profile is negative. The patient's procalcitonin 0.32 yesterday. Review of orders reveals the patient to be on doxycycline and meropenem. ASSESSMENT/PLAN: A 56-year-old morbidly obese male with a BMI of 55, hypertension, history of the left below-knee amputation, admitted with a severe left stump infection with a sensitive staph cellulitis, developed a rash on Teflaro, now has a new hospital-acquired pneumonia, on meropenem and doxycycline day #3 with a normal procalcitonin and negative cultures. We will follow with you. Kobe Brownlee MD
[2017-02-13] MEDS: Insulin Detemir 100 units/ml Vial (Levemir) SC SCH (22:25)
[2017-02-14] MEDS: Heparin25000 units/250ml 1/2NS 25,000 UNITS/250 ML BAG IV PRN ×3 (03:20→23:22)
[2017-02-14 07:30] LABS: HEMOGLOBIN 9.4 g/dL (14.0-18.0); MEAN CELL VOLUME 83.8 fl (80.0-105.0); MEAN CORPUSCULAR HEMOGLOBIN 26.7 pg (25.0-35.0); MEAN CORPUSCULAR HGB CONC 31.9 g/dl (31.0-37.0); MEAN PLATELET VOLUME 8.6 fl (7.0-11.0); RBC 3.52 10^6/uL (3.5-6.1); RED CELL DISTRIBUTION WIDTH 13.9 % (11.5-14.5); WHITE BLOOD COUNT 7.5 10^3/ul (4.5-11.0)
[2017-02-14 07:41] LABS: ALB/GLOB RATIO 0.7 (1.1-1.8); ALBUMIN 2.8 g/dL (3.0-4.8); CALCIUM 8.6 mg/dL (8.4-10.5)
[2017-02-14 07:46] LABS: PROTHROMBIN TIME 52.5 SECONDS (9.4-12.5)
[2017-02-14 07:49] LABS: INR 4.63 (0.93-1.08)
--- NOTE | 2017-02-14 08:18 | PN ---
DATE: 02/14/2017 PULMONARY PROGRESS NOTE SUBJECTIVE: The patient appears comfortable this morning. He is not short of breath at rest. He does state to feeling much better. PHYSICAL EXAMINATION: VITAL SIGNS: Temperature is 97.4, pulse is 72, respirations are 18, and blood pressure is 163/84. Oxygen saturation on nasal cannula is 95%. CARDIOVASCULAR: Positive S1 and S2. No S3, gallop. HEENT: No JVD. LUNGS: Decreased breath sounds at the bases. No rhonchi. No wheezing. EXTREMITIES: The left fvbca-pet-mamz amputation stump is wrapped. The right leg reveals mild edema. There is no cyanosis or clubbing. The right calf is nontender to palpation. GASTROINTESTINAL: Abdomen is soft, nontender and nondistended. Bowel sounds are positive. SKIN: No acute rash. NEUROLOGIC: Exam is limited at the present time. IMPRESSION 1. Left cunqe-fqc-sdmr amputation stump infection. 2. Morbid obesity. 3. Obstructive sleep apnea. 4. Hospital-acquired pneumonia - right lower lobe. 5. Hypoxemia. 6. Chronic renal disease. 7. Diabetes mellitus. 8. Hypertension. PLAN: The patient appears very comfortable this morning. He is not short of breath at rest. He has no chest discomfort. He does state to feeling much better overall. On physical exam, there is no significant bronchospasm noted. In addition, the oxygen saturation on nasal cannula is now 95%. I did discuss the case with the night nurse at length. The night nurse stated that the patient is doing very well at this point in time. The patient remains on antibiotic therapy - as per Infectious Diseases. Input by Dr. Brownlee is noted. The patient also remains on the heparin protocol. He is also on Coumadin. Repeat a.m. labs are pending. Inputs by Renal, Endocrine and Cardiology are noted. Clinical status of the patient is significantly improved - compared to a few days ago. I will discuss the above with Dr. Tee. Felipe Gibson MD [facility]ERNaveen
--- NOTE | 2017-02-14 08:39 | CP.PCM.PN ---
Subjective - Date & Time of Evaluation Date of Evaluation: 02/14/17 Time of Evaluation: 06:45 - Subjective Subjective: Surgery Progress note. Dr. Santiago Pt seen and examined at bedside. No acute events overnight. States that his appetite has somewhat improved. Denies any N/V/D. No new complaints. LLE swelling improving. Objective - Vital Signs/Intake and Output Vital Signs (last 24 hours): Temp Pulse Resp BP Pulse Ox 97.4 F L 72 20 163/84 H 95 02/13/17 16:05 02/14/17 06:39 02/13/17 16:05 02/14/17 06:39 02/13/17 16:05 Intake and Output: 02/14/17 02/14/17 06:59 18:59 Intake Total 1138 Output Total 1000 Balance 138 - Medications Medications: Current Medications Amlodipine Besylate (Norvasc) 10 mg PO DAILY [facility] Last Admin: 02/13/17 11:11 Dose: 10 mg Atorvastatin Calcium (Lipitor) 40 mg PO HS [facility] Last Admin: 02/13/17 22:29 Dose: 40 mg Calcium Acetate (Phoslo) 1,334 mg PO WM [facility] Last Admin: 02/13/17 17:25 Dose: 1,334 mg Clonidine HCl (Catapres) 0.1 mg PO BID [facility] Last Admin: 02/14/17 06:39 Dose: 0.1 mg Doxycycline Hyclate (Doryx) 100 mg PO Q12 [facility] PRN Reason: Protocol Stop: 02/20/17 22:01 Last Admin: 02/13/17 22:22 Dose: 100 mg Ergocalciferol (Drisdol 50,000 Intl Units Cap) 1 cap PO Q7D [facility] Last Admin: 02/07/17 10:34 Dose: 1 cap Ferrous Gluconate (Fergon) 324 mg PO TID [facility] Last Admin: 02/13/17 17:25 Dose: 324 mg Furosemide (Lasix) 80 mg IVP BID [facility] Last Admin: 02/13/17 17:25 Dose: 80 mg Hydralazine HCl (Apresoline) 25 mg PO QID PRN PRN Reason: Other Heparin Sodium/Sodium Chloride (Heparin 62826 Units/250ml 1/2 Normal Saline) 25 ,000 units in 250 mls @ 20.003 mls/hr IV .[id number] PRN; Protocol; 9 UNITS/KG/HR PRN Reason: ADJUST RATE PER PROTOCOL Last Admin: 02/14/17 03:20 Dose: 12.32 units/kg/hr, 27.4 mls/hr Meropenem 250 mg/ Sodium (Chloride) 100 mls @ 100 mls/hr IVPB Q12H [facility] PRN Reason: Protocol Last Admin: 02/13/17 22:24 Dose: 100 mls/hr Insulin Detemir (Levemir) 70 unit SC HS [facility] Last Admin: 02/13/17 22:25 Dose: 70 unit Insulin Human Lispro (Humalog Low) 0 units SC ACHS [facility] PRN Reason: Protocol Last Admin: 02/13/17 22:30 Dose: Not Given Insulin Human Lispro (Humalog) 40 units SC [facility] Lactulose (Enulose) 20 gm PO TID [facility] Last Admin: 02/13/17 17:26 Dose: 20 gm Metolazone (Zaroxolyn) 2.5 mg PO BID [facility] Stop: 02/15/17 10:01 Last Admin: 02/13/17 17:25 Dose: 2.5 mg Metoprolol Succinate (Toprol Xl) 25 mg PO DAILY [facility] Last Admin: 02/13/17 11:08 Dose: 25 mg Ondansetron HCl (Zofran Inj) 4 mg IVP Q4H PRN PRN Reason: Nausea/Vomiting Last Admin: 02/13/17 18:03 Dose: 4 mg Pantoprazole Sodium (Protonix Ec Tab) 40 mg PO DAILY [facility] Last Admin: 02/13/17 11:08 Dose: 40 mg Sodium Bicarbonate (Sodium Bicarbonate Tab) 1,300 mg PO TID [facility] Last Admin: 02/13/17 17:25 Dose: 1,300 mg Tamsulosin HCl (Flomax) 1 mg PO DAILY [facility] Last Admin: 02/13/17 11:06 Dose: 1 mg Topiramate (Topamax) 100 mg PO DAILY [facility] PRN Reason: Protocol Last Admin: 02/13/17 11:08 Dose: 100 mg Topiramate (Topamax) 50 mg PO [facility] PRN Reason: Protocol Last Admin: 02/13/17 22:23 Dose: 50 mg Venlafaxine HCl (Effexor Xr) 150 mg PO DAILY [facility] Last Admin: 02/13/17 11:10 Dose: 150 mg Warfarin Sodium (Coumadin) 5 mg PO 1800 [facility] Last Admin: 02/12/17 19:12 Dose: 5 mg - Labs Labs: 02/14/17 07:00 02/14/17 07:00 PT 52.5 SECONDS (9.4-12.5) H 02/14/17 07:00 INR 4.63 (0.93-1.08) H* 02/14/17 07:00 APTT 73.5 Seconds (25.1-36.5) H 02/13/17 08:30 - Constitutional Appears: Well, No Acute Distress - Head Exam Head Exam: ATRAUMATIC, NORMAL INSPECTION, NORMOCEPHALIC - Eye Exam Eye Exam: EOMI - ENT Exam ENT Exam: Mucous Membranes Moist - Respiratory Exam Respiratory Exam: NORMAL BREATHING PATTERN. absent: Accessory Muscle Use, Respiratory Distress - Cardiovascular Exam Cardiovascular Exam: absent: JVD - GI/Abdominal Exam GI & Abdominal Exam: Soft. absent: Distended, Firm, Guarding, Rigid, Tenderness , Rebound - Extremities Exam Additional comments: left lower extremity wound vac in place - minimal serrosanguinous output. NO leaks. Dressing changed with kerlex and bradley bandage. Right lower extremity dressing in place: kerlex and bradley bandage. - Neurological Exam Neurological Exam: Alert, Awake, Oriented x3 - Skin Skin Exam: Dry, Intact, Normal Color, Warm Assessment and Plan - Assessment and Plan (Free Text) Assessment: 56yo M with LLE BKA stump trauma and infection. S/p wound debridement on - Abx as per ID - Medical management per primary - Continue wound vac, will discontinue when ready for transfer to [place] - Continue dietary supplements - cleared for discharge from a surgical standpoint Further recs as per Dr. Jack Diop PGY1 surgery pager: [phone]
[2017-02-14] MEDS: metOLazone 2.5 MG TAB PO SCH ×2 (09:09→17:29)
[2017-02-14] MEDS: Pantoprazole 40 mg EC Tab PO SCH (09:10)
[2017-02-14] MEDS: Metoprolol Succinate 25 mg XL Tab PO SCH (09:10)
[2017-02-14] MEDS: Venlafaxine 75 mg ER Cap PO SCH (09:10)
[2017-02-14] MEDS: Insulin Lispro 1 UNITS/0.01 ML SC SCH ×3 (09:12→16:53)
[2017-02-14] MEDS: Insulin Lispro (humaLOG) LOW Coverage SC SCH ×4 (09:14→22:46)
[2017-02-14] MEDS: Ergocalciferol 50,000 Intl Units Cap PO SCH (09:16)
--- NOTE | 2017-02-14 11:47 | PN ---
DATE: SUBJECTIVE: I saw Joel testing comfortably in bed. He actually feels little bit better today than yesterday, may be little less cough, slept better. He is just having some phantom pain. He needs some pain medications, he does not have any at this time. PHYSICAL EXAMINATION: VITAL SIGNS: He has temperature of 98, pulse 72, blood pressure 163/84, respiratory rate 18, and O2 saturation 94%. HEENT: His head is atraumatic and normocephalic. Throat is moist. NECK: Supple. HEART: Regular rate. LUNGS: Decreased breath sounds, but clear to auscultation, has congestion. ABDOMEN: Soft. Morbidly obese. No apparent tenderness. Decreased bowel sounds, but present. EXTREMITIES: He has a left BKA with the wound VAC on from wound, 3/4 pitting edema in the right leg. LABORATORY DATA: He has a white count of 7.5, hemoglobin 9.4 better, and hematocrit 29.5 with a platelets of 334. INR is up to 4.6 and we held the Coumadin. He has a sodium of 140, potassium 3.8, BUN 97, creatinine 2.8, which is much better. His kidneys are starting to improve. He had a blood sugar 188 getting better with the increase in insulin over the past few days. Calcium 8.6, total bilirubin 0.2, AST is 33, ALT 20, and alkaline phosphatase 205. MEDICATIONS: He is on Apresoline, Catapres, Coumadin, I added Dilaudid, Doryx, Drisdol, Effexor, Enulose, Fergon, Flomax, heparin IV, insulin,Lasix IV, Levemir, Lipitor, Merrem IV, Norvasc, PhosLo, Protonix, Topamax, Toprol, Zaroxolyn, and Zofran, and the Coumadin is on hold. I will continue to increase his insulin to get the blood sugars mostly in the 180 We gave him pain medications due to his left leg BKA phantom pain. Continue with medications for his multiple issues, his left stump wound, his diabetes, his acute renal failure, constipation, obesity, phantom pain, and pneumonia. Pedrito Tee DO MTDD
[2017-02-14] MEDS ORDERED: Benzocaine/Menthol (Cepacol) Lozenge MT PRN (14:16)
[2017-02-14 18:01] VITALS: RESP 20; TEMP 98.4; O2SAT 95
--- NOTE | 2017-02-14 18:12 | PN ---
DATE: LOCATION: In room 571. SUBJECTIVE: This is a 56-year-old male with recent uncontrolled type 2 insulin-requiring diabetes, now being followed closely for metabolic management. He has ongoing IV antibiotic management for a recent lower extremity stump cellulitis and also has underlying progressive renal insufficiency with underlying chronic kidney disease. His glycemic levels are fluctuating but improved, and the glucose values have ranged from 188 to 242 mg/dL. The latest chemistry showed a BUN of 97, sodium 140, potassium 3.8, chloride 103, CO2 of 26, glucose 200 and creatinine 2.8. ASSESSMENT AND PLAN: So at this time, we will continue the modified basal and bolus insulin regimen to allow for dose equilibration and keep him on the Humalog given as 40 units subcu t.i.d. before meals as ordered. We will continue also the basal insulin given as Levemir at 70 units subcu at bedtime daily as ordered. We will titrate incrementally as indicated to optimize metabolic control. Moreover of significance is a factor, the patient is also on high-dose diuretic therapy which could prerenal azotemia as noted thereof. We will obtain serial chemistries and supplement accordingly needed. We will follow. Ania Hernandez MD
[2017-02-14] MEDS: HYDROmorphone 1 mg/ml ISec IVP PRN (19:01)
[2017-02-14] MEDS: Insulin Detemir 100 units/ml Vial (Levemir) SC SCH (22:50)
--- NOTE | 2017-02-14 23:12 | CP.PCM.PN ---
Subjective - Date & Time of Evaluation Date of Evaluation: 02/14/17 Time of Evaluation: 14:00 - Subjective Subjective: renal follow up note no events overnight sob improved PE: General Appearance: Comfortable, in no acute respiratory distress, co- operative. morbid obesity Vitals reviewed Head; Atraumatic, normocephalic ENT: no ulcers EYES: Sclera is anicteric. Neck; supple Lungs: Normal respiratory rate Heart: Normal rate. s1s2 normal. No rub or gallop. Extremities: left BKA in dressing. Neurological: Patient is alert, awake and oriented to person, place and time. No focal deficit. Strength bilateral appropriate and equal Skin: Warm and dry. Abdomen: Abdomen is soft. Bowel sounds +. Psych: normal insight and normal affect/mood MSK: no joint tenderness or swelling Acute Kidney Injury (N17.9) unclear etiology. possible AIN considering recent antibiotics/NSAIDs, rash or acute tubular necrosis: stable Hypoxia Diabetic chronic Kidney Disease (E11.22) Hypertensive Chronic Kidney Disease (I12.9) Anemia (D64.9), HTN (I12.9) Hyperkalemia, acidosis diabetes Mellitus with retinopathy, hypertension, morbid obesity, hx of PE on coumadin, left leg wound s/p BKA in sep 2016 now with fall proteinuria and microscopic hematuria Vit D def, hyperphos Plan No acute need for renal replacement therapy at this time. cr improving. continue diuresis Kidney biopsy will be difficult due to morbid obesity and currently on coumadin. Hypertension control with meds as ordered. hold ACEI/ARB due to KIA continue phos binders, sodium bicarb 1300 tid. continue with iron supplements and dose of aranesp 02/08/17 continue with flomax Objective - Vital Signs/Intake and Output Vital Signs (last 24 hours): Temp Pulse Resp BP Pulse Ox 98.4 F 80 20 159/69 H 95 02/14/17 16:00 02/14/17 17:29 02/14/17 16:00 02/14/17 17:29 02/14/17 16:00 Intake and Output: 02/14/17 02/15/17 18:59 06:59 Intake Total 890 1208 Output Total 1900 1500 Balance -1010 -292 - Medications Medications: Current Medications Amlodipine Besylate (Norvasc) 10 mg PO DAILY [facility] Last Admin: 02/14/17 09:11 Dose: 10 mg Atorvastatin Calcium (Lipitor) 40 mg PO HS [facility] Last Admin: 02/13/17 22:29 Dose: 40 mg Benzocaine/Menthol (Cepacol Sore Throat) 1 ailyn MT Q2H PRN PRN Reason: Sore Throat Last Admin: 02/14/17 14:41 Dose: 1 ailyn Calcium Acetate (Phoslo) 1,334 mg PO WM [facility] Last Admin: 02/14/17 17:29 Dose: 1,334 mg Clonidine HCl (Catapres) 0.1 mg PO BID [facility] Last Admin: 02/14/17 17:29 Dose: 0.1 mg Doxycycline Hyclate (Doryx) 100 mg PO Q12 [facility] PRN Reason: Protocol Stop: 02/20/17 22:01 Last Admin: 02/14/17 22:23 Dose: 100 mg Ergocalciferol (Drisdol 50,000 Intl Units Cap) 1 cap PO Q7D [facility] Last Admin: 02/14/17 09:16 Dose: 1 cap Ferrous Gluconate (Fergon) 324 mg PO TID [facility] Last Admin: 02/14/17 17:29 Dose: 324 mg Furosemide (Lasix) 80 mg IVP BID [facility] Last Admin: 02/14/17 17:29 Dose: 80 mg Hydralazine HCl (Apresoline) 25 mg PO QID PRN PRN Reason: Other Hydromorphone HCl (Dilaudid) 1 mg IVP Q4H PRN PRN Reason: Pain, moderate (4-7) Last Admin: 02/14/17 19:01 Dose: 1 mg Heparin Sodium/Sodium Chloride (Heparin 71902 Units/250ml 1/2 Normal Saline) 25 ,000 units in 250 mls @ 20.003 mls/hr IV .[id number] PRN; Protocol; 9 UNITS/KG/HR PRN Reason: ADJUST RATE PER PROTOCOL Last Admin: 02/14/17 13:21 Dose: 12.32 units/kg/hr, 27.4 mls/hr Meropenem 250 mg/ Sodium (Chloride) 100 mls @ 100 mls/hr IVPB Q12H [facility] PRN Reason: Protocol Last Admin: 02/14/17 22:27 Dose: 100 mls/hr Insulin Detemir (Levemir) 70 unit SC [facility] Last Admin: 02/14/17 22:50 Dose: Not Given Insulin Human Lispro (Humalog Low) 0 units SC ACHS [facility] PRN Reason: Protocol Last Admin: 02/14/17 22:46 Dose: Not Given Insulin Human Lispro (Humalog) 40 units SC AC [facility] Last Admin: 02/14/17 16:53 Dose: Not Given Lactulose (Enulose) 20 gm PO TID [facility] Last Admin: 02/14/17 19:02 Dose: Not Given Metolazone (Zaroxolyn) 2.5 mg PO BID [facility] Stop: 02/15/17 10:01 Last Admin: 02/14/17 17:29 Dose: 2.5 mg Metoprolol Succinate (Toprol Xl) 25 mg PO DAILY [facility] Last Admin: 02/14/17 09:10 Dose: 25 mg Ondansetron HCl (Zofran Inj) 4 mg IVP Q4H PRN PRN Reason: Nausea/Vomiting Last Admin: 02/13/17 18:03 Dose: 4 mg Pantoprazole Sodium (Protonix Ec Tab) 40 mg PO DAILY [facility] Last Admin: 02/14/17 09:10 Dose: 40 mg Sodium Bicarbonate (Sodium Bicarbonate Tab) 1,300 mg PO TID [facility] Last Admin: 02/14/17 17:29 Dose: 1,300 mg Tamsulosin HCl (Flomax) 0.4 mg PO DAILY [facility] Last Admin: 02/14/17 10:34 Dose: 0.4 mg Topiramate (Topamax) 100 mg PO DAILY [facility] PRN Reason: Protocol Last Admin: 02/14/17 09:09 Dose: 100 mg Topiramate (Topamax) 50 mg PO HS [facility] PRN Reason: Protocol Last Admin: 02/14/17 22:27 Dose: 50 mg Venlafaxine HCl (Effexor Xr) 150 mg PO DAILY [facility] Last Admin: 02/14/17 09:10 Dose: 150 mg Warfarin Sodium (Coumadin) 5 mg PO 1800 [facility] Last Admin: 02/12/17 19:12 Dose: 5 mg - Labs Labs: 02/14/17 07:00 02/14/17 07:00 PT 52.5 SECONDS (9.4-12.5) H 02/14/17 07:00 INR 4.63 (0.93-1.08) H* 02/14/17 07:00 APTT 78.0 Seconds (25.1-36.5) H 02/14/17 07:30
--- NOTE | 2017-02-15 00:20 | PN ---
DATE: The patient is in room 571, bed 2. SUBJECTIVE: The patient was seen early this morning. No fevers and no chills. PHYSICAL EXAMINATION: VITAL SIGNS: On exam, temperature is 98, blood pressure is 150/60, respiratory rate of 20. HEENT: Examination of HEENT is unremarkable. NECK: Supple. LUNGS: Decreased breath sounds. HEART: Normal S1 and S2. ABDOMEN: Soft. LABORATORY DATA: Reveals the patient has a oxacillin-sensitive Staph aureus . The patient is currently on doxycycline and meropenem. ASSESSMENT AND PLAN: This is a 56-year-old morbidly obese male with a BMI of 55; hypertension; left below knee amputation, admitted with a severe left stump infection with a sensitive Staphylococcus aureus cellulitis and developed a rash on Teflaro; new hospital-acquired pneumonia, on day #4 of meropenem and doxycycline. We will treat with 4 to 7 days of meropenem and doxycycline, today is day #4, and switch back to Levaquin. Kobe Brownlee MD
[2017-02-15 07:17] LABS: HEMOGLOBIN 9.3 g/dL (14.0-18.0); MEAN CORPUSCULAR HEMOGLOBIN 26.6 pg (25.0-35.0); MEAN CORPUSCULAR HGB CONC 31.7 g/dl (31.0-37.0); MEAN PLATELET VOLUME 8.6 fl (7.0-11.0); RBC 3.49 10^6/uL (3.5-6.1); RED CELL DISTRIBUTION WIDTH 14.1 % (11.5-14.5); WHITE BLOOD COUNT 7.2 10^3/ul (4.5-11.0)
[2017-02-15 07:33] LABS: PROTHROMBIN TIME 42.1 SECONDS (9.4-12.5)
[2017-02-15 07:39] LABS: INR 3.73 (0.93-1.08)
[2017-02-15 07:43] LABS: ALB/GLOB RATIO 0.7 (1.1-1.8); ALBUMIN 2.8 g/dL (3.0-4.8); CALCIUM 8.4 mg/dL (8.4-10.5)
--- NOTE | 2017-02-15 08:12 | PN ---
DATE: PULMONARY PROGRESS NOTE SUBJECTIVE: The patient appears very comfortable this morning. He is not short of breath at rest. He states he is feeling much better. OBJECTIVE: VITAL SIGNS (LAST NOTED IN THE COMPUTER): Temperature is 98.4, pulse is 75, respirations are 18, last blood pressure recorded was 159/69. oxygen saturation on nasal cannula is 95-96%. HEENT: Normocephalic, atraumatic. NECK: No JVD. CARDIOVASCULAR: Positive S1 and S2. No S3 gallop. LUNGS: Decreased breath sounds at the bases. No rhonchi. No wheezing. EXTREMITIES: The left [id number] amputation stump is wrapped. The right leg reveals mild edema. There is no cyanosis or clubbing. The right calf is nontender to palpation. GASTROINTESTINAL: Abdomen is soft, nontender, and nondistended. Bowel sounds are positive. SKIN: No acute rash. NEUROLOGIC: Exam limited at the present time. IMPRESSION: 1. Left rfaof-mxy-ltyt amputation stump infection. 2. Morbid obesity. 3. Obstructive sleep apnea. 4. Hospital-acquired pneumonia - right lower lobe. 5. Hypoxemia. 6. Chronic renal disease. 7. Diabetes mellitus. 8. Hypertension. PLAN: The patient appears very comfortable this morning. He is not short of breath at rest. He has no chest discomfort. He does state to feeling much, much better overall. On physical exam, there is no significant bronchospasm noted. In addition, the alveolar-arterial gradient is also less. The patient remains on the heparin protocol plus Coumadin. Repeat a.m. labs are pending. I would continue with the antibiotic coverage as per Infectious Disease. Input by Dr. Brownlee is noted. The temperatures have fully resolved. The inputs by Surgery and Endocrine are also noted. Clinical status of the patient is significantly improved - compared to last week. I will also order a repeat chest x-ray - for tomorrow - for comparison. I will discuss the above with Dr. Tee. Felipe Gibson MD [facility]
--- NOTE | 2017-02-15 09:02 | PN ---
DATE: 02/12/2017 SUBJECTIVE: I saw Joel in his room resting in bed. He still gets short of breath from time to time. He is on oxygen. He is on heparin IV and multiple other medications. No chest pain now. He is here with his and kid. He is in fairly good spirits. He is eating some. He is on hydralazine, Catapres, Coumadin, Dilaudid, Doryx, Drisdol, Effexor, Enulose, Fergon, Flomax, heparin, Humalog, Lasix, Levemir, Lipitor, Merrem IV, amlodipine, PhosLo, Protonix, sodium bicarbonate, Topamax, metoprolol, Zaroxolyn, and Zofran. PHYSICAL EXAMINATION: VITAL SIGNS: He has a 98.5 temperature, 89 pulse, 139/86 and 157/83 blood pressures, 95% O2 sat on room air, and 19 respiratory rate on oxygen. HEENT: Head is atraumatic and normocephalic. Throat is moist. NECK: Supple. HEART: Regular rate. LUNGS: Decreased breath sounds bilaterally, but clear to auscultation. ABDOMEN: Morbidly obese. EXTREMITIES: Left BKA, he has got a wound VAC, looks healthy and healing. The right leg also has much less edema. 2+ 4/4 pitting edema. LABORATORY DATA: HIV is nonreactive. Hepatitis is all nonreactive. His white count is 8.3, hemoglobin is 9.1, hematocrit is 28, and platelets are 331. His INR is 2.23. He has 140 sodium, potassium 4.8, BUN is 106, and creatinine is better at 3.6. Kidney functions are improving a little bit. Sugar is 177, calcium is 8.8, total bilirubin is 0.3, AST is 28, ALT is 17, and alkaline phosphatase is 191. PLAN: He does have urinary tract infection. He is being seen by multiple doctors, Surgery, Infectious Disease, Renal, Endocrinology, and Cardiology. We will continue with aggressive treatment and care. We are awaiting for the V/Q scan. We will check his labs tomorrow. Continue with oxygen, heparin, and Coumadin. Pedrito Tee DO
[2017-02-15] MEDS: Heparin25000 units/250ml 1/2NS 25,000 UNITS/250 ML BAG IV PRN (09:18)
[2017-02-15] MEDS ORDERED: Clotrimazole/Betamethasone Cream(15 gm) TOP SCH (10:00)
--- NOTE | 2017-02-15 10:36 | PN ---
DATE: 02/15/2017 CARDIOLOGY FOLLOWUP SUBJECTIVE: The patient is comfortable in bed. No shortness of breath. No chest pain. PHYSICAL EXAMINATION: VITAL SIGNS: Blood pressure is 151/82, heart rate is in the 70s. NECK: Negative JVD. LUNGS: Decreased breath sounds. HEART: Reveal S1, S2. EXTREMITIES: There is drainage from the left lower extremity stump. LABORATORY DATA: White count is 7.2, hemoglobin is 9.3. Chemistries: BUN and creatinine are 89/2.5. IMPRESSION: 1. Sepsis of the left lower extremity stump. 2. Status post amputation of left lower extremity. 3. Morbid obesity. 4. Anemia. 5. Renal insufficiency. 6. Hypertension. PLAN: Given these findings, the patient looks much, much improved with control of his infection as well as control of his blood pressure. His renal insufficiency is stabilized. Samir Vora MD
[2017-02-15] MEDS: Pantoprazole 40 mg EC Tab PO SCH (10:55)
[2017-02-15] MEDS: Venlafaxine 75 mg ER Cap PO SCH (10:57)
[2017-02-15 11:03] VITALS: BP 167/85; PULSE 82
[2017-02-15] MEDS ORDERED: Darbepoetin Alfa 60 mcg/ml Inj SC ONE (11:07)
--- NOTE | 2017-02-15 11:10 | CP.PCM.PN ---
Subjective - Date & Time of Evaluation Date of Evaluation: 02/15/17 Time of Evaluation: 11:03 - Subjective Subjective: Follow up Nephrology Consultation: Assessment: stable Acute Kidney Injury (N17.9) unclear etiology. possible AIN considering recent antibiotics/NSAIDs, rash or acute tubular necrosis: improving Hypoxia with fluid overload: improved Diabetic chronic Kidney Disease (E11.22) Hypertensive Chronic Kidney Disease (I12.9) Anemia (D64.9), HTN (I12.9) Hyperkalemia, acidosis diabetes Mellitus with retinopathy, hypertension, morbid obesity, hx of PE on coumadin, left leg wound s/p BKA in sep 2016 now with fall proteinuria and microscopic hematuria Vit D def, hyperphos Plan No acute need for renal replacement therapy at this time. change lasix to 40 mg bid. repeat CXR today. Kidney biopsy will be difficult due to morbid obesity and currently on coumadin. empiric treatment such as steroids also with risks/complications such as hyperglycemia, infection, impaired worund healing. hence watchful recovery is pursued at this time. Hypertension control with meds as ordered. hold ACEI/ARB due to KIA. also d/c HCTZ. Increased clonidine 0.2 mg bid lowered phos binders, sodium bicarb 650 bid. continue with iron supplements and dose of aranesp 02/08/17 and 02/15/17 (60 mcg). weekly Vit D as ordered. continue with flomax Monitor Input/Output, daily weights and renal function with basic metabolic panel RN was asked to d/c lora Dose meds/antibiotics for reduced GFR. Avoid fleets enema/magnesium based laxatives. Avoid nephrotoxins/NSAIDs/ iodinated contrast (unless needed emergently) Glycemic control Further work up/management as per primary team. pt stable for d/c from renal perspective. Thanks for allowing me to participate in care of your patient. please call if any Qs. d/w primary team. 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 Dr Gomez Ventura Office: [phone] Chief Complaint; feels better today HPI: Pt is a 56 M with hx of diabetes Mellitus (35 years) with retinopathy, hypertension (30 years), morbid obesity, hx of PE on coumadin, left leg wound s/ p BKA in sep 2016 @ [facility], who was in a cruise presented with complaints of fall on left BKA stump and bleeding thereafter. he was also given IV antibiotics in cruise ? name of antibiotics. Denies chest pain, palpitation, improved shortness of breath. overall feels better. says may be going to [facility] today Denies OTC/herbal meds but was taking NSAIDs prior to admission No recent iodinated contrast exposure. No obvious episodes of low BP. Physical Examination: General Appearance: Comfortable, in no acute respiratory distress, co- operative. morbid obesity Vitals reviewed and noted as below Head; Atraumatic, normocephalic ENT: no ulcers no thrush. Tongue is midline. Oropharynx: no rash or ulcers. EYES: Pupils are equal, round and reactive to light accommodation. Eye muscles and extraocular movement intact. Sclera is anicteric. Neck; supple no lymphadenopathy, no thyromegaly or bruit Lungs: Normal respiratory rate/effort. Breath sounds bilateral equal and improved Heart: Normal rate. s1s2 normal. No rub or gallop. Extremities: left BKA in dressing. RLE in dressing. Neurological: Patient is alert, awake and oriented to person, place and time. No focal deficit. Strength bilateral appropriate and equal Skin: Warm and dry. Normal turgor. No rash. Palpitation: Normal elasticity for age Abdomen: Abdomen is soft. Bowel sounds +. There is no abdominal tenderness, no guarding/rigidity no organomegaly Psych: normal insight and normal affect/mood MSK: no joint tenderness or swelling. Digits and nails normal, no deformity : kidney or bladder not palpable Labs/imaging reviewed. Past medical history, past surgical history, family history, social history, allergy reviewed and noted as below Family hx: no hx of CKD. Rest non-contributory Objective - Vital Signs/Intake and Output Vital Signs (last 24 hours): Temp Pulse Resp BP Pulse Ox 98.4 F 75 20 151/82 H 95 02/15/17 07:30 02/15/17 07:30 02/15/17 07:30 02/15/17 07:30 02/15/17 07:30 Intake and Output: 02/15/17 02/15/17 06:59 18:59 Intake Total 1698 250 Output Total 2800 Balance -1102 250 - Medications Medications: Current Medications Amlodipine Besylate (Norvasc) 10 mg PO DAILY [facility] Last Admin: 02/14/17 09:11 Dose: 10 mg Atorvastatin Calcium (Lipitor) 40 mg PO HS [facility] Last Admin: 02/14/17 22:02 Dose: 40 mg Benzocaine/Menthol (Cepacol Sore Throat) 1 ailyn MT Q2H PRN PRN Reason: Sore Throat Last Admin: 02/14/17 14:41 Dose: 1 ailyn Betamethasone/Clotrimazole (Lotrisone) 0 gm TOP BID [facility] Calcium Acetate (Phoslo) 667 mg PO WM [facility] Clonidine HCl (Catapres) 0.1 mg PO BID [facility] Last Admin: 02/14/17 17:29 Dose: 0.1 mg Doxycycline Hyclate (Doryx) 100 mg PO Q12 [facility] PRN Reason: Protocol Stop: 02/20/17 22:01 Last Admin: 02/14/17 22:23 Dose: 100 mg Ergocalciferol (Drisdol 50,000 Intl Units Cap) 1 cap PO Q7D [facility] Last Admin: 02/14/17 09:16 Dose: 1 cap Ferrous Gluconate (Fergon) 324 mg PO TID [facility] Last Admin: 02/14/17 17:29 Dose: 324 mg Hydralazine HCl (Apresoline) 25 mg PO QID PRN PRN Reason: Other Hydromorphone HCl (Dilaudid) 1 mg IVP Q4H PRN PRN Reason: Pain, moderate (4-7) Last Admin: 02/14/17 19:01 Dose: 1 mg Heparin Sodium/Sodium Chloride (Heparin 47088 Units/250ml 1/2 Normal Saline) 25 ,000 units in 250 mls @ 20.003 mls/hr IV .[id number] PRN; Protocol; 9 UNITS/KG/HR PRN Reason: ADJUST RATE PER PROTOCOL Last Admin: 02/15/17 09:18 Dose: 12.32 units/kg/hr, 27.382 mls/hr Meropenem 250 mg/ Sodium (Chloride) 100 mls @ 100 mls/hr IVPB Q12H [facility] PRN Reason: Protocol Last Admin: 02/14/17 22:27 Dose: 100 mls/hr Insulin Detemir (Levemir) 70 unit SC HS [facility] Last Admin: 02/14/17 22:50 Dose: Not Given Insulin Human Lispro (Humalog Low) 0 units SC ACHS [facility] PRN Reason: Protocol Last Admin: 02/14/17 22:46 Dose: Not Given Insulin Human Lispro (Humalog) 40 units SC AC [facility] Last Admin: 02/14/17 16:53 Dose: Not Given Lactulose (Enulose) 20 gm PO TID [facility] Last Admin: 02/14/17 19:02 Dose: Not Given Metoprolol Succinate (Toprol Xl) 25 mg PO DAILY [facility] Last Admin: 02/14/17 09:10 Dose: 25 mg Ondansetron HCl (Zofran Inj) 4 mg IVP Q4H PRN PRN Reason: Nausea/Vomiting Last Admin: 02/13/17 18:03 Dose: 4 mg Pantoprazole Sodium (Protonix Ec Tab) 40 mg PO DAILY [facility] Last Admin: 02/14/17 09:10 Dose: 40 mg Sodium Bicarbonate (Sodium Bicarbonate Tab) 650 mg PO BID [facility] Tamsulosin HCl (Flomax) 0.4 mg PO DAILY [facility] Last Admin: 02/14/17 10:34 Dose: 0.4 mg Topiramate (Topamax) 100 mg PO DAILY [facility] PRN Reason: Protocol Last Admin: 02/14/17 09:09 Dose: 100 mg Topiramate (Topamax) 50 mg PO HS [facility] PRN Reason: Protocol Last Admin: 02/14/17 22:27 Dose: 50 mg Venlafaxine HCl (Effexor Xr) 150 mg PO DAILY [facility] Last Admin: 02/14/17 09:10 Dose: 150 mg Warfarin Sodium (Coumadin) 5 mg PO 1800 [facility] Last Admin: 02/12/17 19:12 Dose: 5 mg - Labs Labs: 02/15/17 07:00 02/15/17 07:00 PT 42.1 SECONDS (9.4-12.5) H 02/15/17 07:00 INR 3.73 (0.93-1.08) H* 02/15/17 07:00 APTT 78.0 Seconds (25.1-36.5) H 02/14/17 07:30
--- NOTE | 2017-02-15 11:31 | RAD ---
HISTORY: Fluid overload. Portable study 11:16 COMPARISON: 02/12/2017 FINDINGS: LUNGS: Stable right lower lobe infiltrate. PLEURA: No significant pleural effusion identified, no pneumothorax apparent. CARDIOVASCULAR: Cardiomegaly. No evidence of acute, significant cardiovascular disease. OSSEOUS STRUCTURES: No significant abnormalities. VISUALIZED UPPER ABDOMEN: Normal. OTHER FINDINGS: None. IMPRESSION: Persistent infiltrate alveolar with air bronchograms right lower lobe likely pneumonia. No significant interval change compared to the prior examination(s).
[2017-02-15] MEDS: Metoprolol Succinate 25 mg XL Tab PO SCH (11:33)
[2017-02-15] MEDS: Insulin Lispro 1 UNITS/0.01 ML SC SCH ×2 (11:37→11:38)
[2017-02-15] MEDS: Insulin Lispro (humaLOG) LOW Coverage SC SCH ×2 (11:37→11:38)
--- NOTE | 2017-02-15 11:55 | PN ---
DATE: SUBJECTIVE: Joel Aguilar is seen. Right leg is wrapped. Left leg has a wound VAC on to the area involved and it is getting smaller. The wound is clean. Apparently, they are considering a transfer to [place] today. hSa Santiago MD
[2017-02-15] MEDS: metOLazone 2.5 MG TAB PO SCH (11:57)
[2017-02-15] MEDS: HYDROmorphone 1 mg/ml ISec IVP PRN (12:32)
--- NOTE | 2017-02-15 15:03 | PN ---
DATE: 02/15/2017 SUBJECTIVE: Last night at 7 o'clock, I had a call from case management about getting a peer to peer with a doctor from the [facility]. He never called me last night. I was waiting to [facility] the [facility] that was Tuesday02/14/2017 [facility], but the doctor never called from the [facility], so I could not give information. We are still trying to get him there. He is definitely improving. He is eating better, breathing better, very little pain. We will get the wound VAC on the left stump. MEDICATIONS: He is on Apresoline, Catapres, Cepacol, Coumadin, which is on hold, Dilaudid, Doryx, Drisdol, Effexor, Enulose, Fergon, Flomax, heparin, Humalog, insulin, Lasix, Levemir, Lipitor, Merrem IV, Norvasc, PhosLo, Protonix, sodium bicarbonate, Topamax, Toprol, Zaroxolyn, and Zofran. PHYSICAL EXAMINATION: VITAL SIGNS: He has a 98.4 temperature, 75 pulse, 151/82 blood pressure, 20 respiratory rate, and 95% O2 saturation on nasal cannula. HEENT: Head is atraumatic, normocephalic, throat is moist. NECK: Supple. HEART: Regular rate. LUNGS: Decreased breath sounds, but clearing, breathing better, and taking deeper breaths. ABDOMEN: Soft, morbidly obese. Positive bowel sounds. No apparent guarding or rebound. EXTREMITIES: Left leg has a BKA with a wound VAC on the area that was debrided. LABORATORY DATA: He has a 7.2 white count, 9.3 hemoglobin, 29.3 hematocrit, with a 314 platelets. His INR is 3.73. We will hold the Coumadin. He has a 139 sodium, potassium 3.9, BUN 89, creatinine 2.5, still improving with his renal insufficiency and acute kidney injury is improving. Sugar is 180, calcium is 8.4, total bilirubin is 0.3, AST is 32, ALT is 20, alk phos 225, and total protein is 7.1. ASSESSMENT AND PLAN: He is here for a fall left stump wound, with incision and drainage. He had pneumonia, diabetes, acute kidney injury, constipation, and pneumonia. He is definitely improving. [facility] 48 [facility]. I will put Coumadin on hold. I will check his labs. Pedrito Tee DO
--- NOTE | 2017-02-15 15:29 | PN ---
DATE: ENDO FOLLOWUP NOTE LOCATION: In room 571. SUBJECTIVE: This is a 56-year-old male with recent uncontrolled type 2 insulin-requiring diabetes, now is getting IV antibiotics for a recent left below-knee amputation stump cellulitis as noted and is being followed closely for metabolic management. At this time, his latest chemistry showed BUN of 89, sodium of 139, potassium of 3.9, chloride of 102, CO2 of 27, glucose 180, and creatinine of 2.5. Latest glucose values have ranged from 81 mg/dL to 253 mg/dL, which allowed for dose equilibration. We actually modified his basal and bolus insulin regimen and lowered the Humalog to 33 units subcu t.i.d. before meals to start at dinner time today as ordered. We will continue the low-dose correction scale using Humalog insulin as given. We will titrate incrementally as indicated to optimize metabolic control. We will also continue the same basal insulin given as Levemir at 70 units subcu at bedtime daily as given. We will titrate incrementally as indicated to optimize metabolic control. We will follow and advise accordingly. Ania Hernandez MD
[2017-02-15] MEDS ORDERED: Insulin Lispro 1 UNITS/0.01 ML SC SCH (16:30)
--- NOTE | 2017-02-15 16:53 | CP.PCM.PN ---
Subjective - Date & Time of Evaluation Date of Evaluation: 02/15/17 Time of Evaluation: 16:50 - Subjective Subjective: Surgery Pt s&e. NAEON. Pt being DCed today. Objective - Vital Signs/Intake and Output Vital Signs (last 24 hours): Temp Pulse Resp BP Pulse Ox 98.4 F 82 20 167/85 H 95 02/15/17 07:30 02/15/17 10:52 02/15/17 07:30 02/15/17 10:58 02/15/17 07:30 Intake and Output: 02/15/17 02/15/17 06:59 18:59 Intake Total 1698 1030 Output Total 2800 1500 Balance -1102 -470 - Labs Labs: 02/15/17 07:00 02/15/17 07:00 PT 42.1 SECONDS (9.4-12.5) H 02/15/17 07:00 INR 3.73 (0.93-1.08) H* 02/15/17 07:00 APTT 78.0 Seconds (25.1-36.5) H 02/14/17 07:30 - Constitutional Appears: No Acute Distress - Head Exam Head Exam: ATRAUMATIC, NORMAL INSPECTION, NORMOCEPHALIC - Eye Exam Eye Exam: EOMI, Normal appearance, PERRL Pupil Exam: NORMAL ACCOMODATION, PERRL - ENT Exam ENT Exam: Mucous Membranes Moist, Normal Exam - Neck Exam Neck Exam: Full ROM, Normal Inspection. absent: Lymphadenopathy - Respiratory Exam Respiratory Exam: Clear to Ausculation Bilateral, NORMAL BREATHING PATTERN - Cardiovascular Exam Cardiovascular Exam: REGULAR RHYTHM, +S1, +S2. absent: Murmur - GI/Abdominal Exam GI & Abdominal Exam: Soft, Normal Bowel Sounds. absent: Tenderness - Extremities Exam Extremities Exam: Pedal Edema. absent: Full ROM, Normal Inspection, Tenderness Additional comments: L BKA wuond vac in place. Chandler wrapped - Back Exam Back Exam: NORMAL INSPECTION - Neurological Exam Neurological Exam: Alert, Awake, CN II-XII Intact, Oriented x3. absent: Normal Gait - Psychiatric Exam Psychiatric exam: Normal Affect, Normal Mood - Skin Skin Exam: Dry, Warm Assessment and Plan - Assessment and Plan (Free Text) Assessment: 56yo M with LLE BKA stump trauma and infection. S/p wound debridement on - Abx as per ID - Medical management per primary - will discontinue woubd vac when ready for transfer to [place] - Continue dietary supplements -Appy medihoney and 4x4 gauze wrap with kerlix and chandler wrap - cleared for discharge from a surgical standpoint Further recs as per Dr. Santiago
--- NOTE | 2017-02-15 19:50 | PN ---
DATE: 02/15/2017 SUBJECTIVE: The patient is in bed, in no acute distress, nontoxic, no fevers, and no chills. OBJECTIVE: VITAL SIGNS: Temperature is 98, blood pressure is 150/80, and respiratory rate of 16. HEENT: Unremarkable. NECK: Supple. LUNGS: Have decreased breath sounds. HEART: Normal S1 and S2. ABDOMEN: Soft. LABORATORY DATA: Reveals a white count of 7.2, hemoglobin of 9, platelets of 314, BUN of 89 and creatinine of 2.5. HIV is negative and the patient's cultures are noted. Review of orders reveal the patient to be on doxycycline and meropenem. The patient had a chest x-ray today, stable right lower lobe infiltrate, Dr. Gibson's note. ASSESSMENT AND PLAN: This is a 56-year-old morbidly obese male with a BMI of 55, hypertension, left below-knee amputation with severe left stump infection and sensitive Staph aureus cellulitis, developed a rash on Teflaro, the patient developed a new healthcare-associated hospital-acquired pneumonia, on day #5 of meropenem and doxycycline, today is day #5 of 4 to 7 days and will be able to switch back to p.o. Levaquin to complete the stump infection therapy and we will follow with you. Kobe Brownlee MD
--- NOTE | 2017-02-24 11:23 | DS ---
HISTORY OF PRESENT ILLNESS: Joel Aguilar is probably able to be discharged to the [facility]. I had 4 repeated phone calls with the doctors over there. They finally agreed to take him and this is great and that is where he wants to go. He was there before. He had a fourth left stump wound with incision and drainage. He had pneumonia, diabetes, kidney injury, constipation, pneumonia, is improving, so they finally agreed to take him and we transferred him to the [facility] close to where he lives. Pedrito Tee DO
--- NOTE | 2017-02-28 18:48 | OP ---
PROCEDURE DATE: 02/07/2017 PREOPERATIVE DIAGNOSIS: Stump wound infection status post a fall. POSTOPERATIVE DIAGNOSIS: Stump wound infection status post a fall. OPERATION: Debridement. DESCRIPTION OF PROCEDURE: In the operating room, the patient was identified by name, procedure and laterality and my sunita. of necrosis were identified. It did not seem to be very infected, these were cleaned with a scissor followed by an 11 blade, followed by Versajet. Due to the small area in between this was lysed to get a better clean out that this necrotic chronically inflamed fat. The wound was cultured. The wound was closed over wound VAC. After the bridge was closed with nylon and retentions. The patient was taken to recovery with good condition and after sponge and needle was declared correct. Sha Santiago MD
== END 2017-02-15 16:20 | disposition short-term general hospital (02) | DRG 463 ==
LOC: ED 10:28 → ERH 13:50 → 5RSO 16:43
PROVIDERS: ADMIT Family Medicine; ATTEND Family Medicine
PROC: 0JBP0ZZ Excision of Left Lower Leg Subcutaneous Tissue and Fascia, Open Approach (ICD-10-PCS; principal; 2017-02-07 16:30)
PROC: 3E0F7GC Introduction of Other Therapeutic Substance into Respiratory Tract, Via Natural or Artificial Opening (ICD-10-PCS; 2017-02-10)
PROC: 5A09457 Assistance with Respiratory Ventilation, 24-96 Consecutive Hours, Continuous Positive Airway Pressure (ICD-10-PCS; 2017-02-12)
DX: T87.44 Infection of amputation stump, left lower extremity (principal); J18.9 Pneumonia, unspecified organism; N17.9 Acute kidney failure, unspecified; I13.0 Hypertensive heart and chronic kidney disease with heart failure and stage 1 through stage 4 chronic kidney disease, or unspecified chronic kidney disease; E11.22 Type 2 diabetes mellitus with diabetic chronic kidney disease; E11.319 Type 2 diabetes mellitus with unspecified diabetic retinopathy without macular edema; E66.01 Morbid (severe) obesity due to excess calories; L03.116 Cellulitis of left lower limb; I50.9 Heart failure, unspecified; Z68.43 Body mass index [BMI] 50.0-59.9, adult; E87.1 Hypo-osmolality and hyponatremia; E87.2 Acidosis; E11.42 Type 2 diabetes mellitus with diabetic polyneuropathy; E78.00 Pure hypercholesterolemia, unspecified; K21.9 Gastro-esophageal reflux disease without esophagitis; N40.0 Benign prostatic hyperplasia without lower urinary tract symptoms; Y83.5 Amputation of limb(s) as the cause of abnormal reaction of the patient, or of later complication, without mention of misadventure at the time of the procedure; E11.51 Type 2 diabetes mellitus with diabetic peripheral angiopathy without gangrene; N18.9 Chronic kidney disease, unspecified; E11.65 Type 2 diabetes mellitus with hyperglycemia; D64.9 Anemia, unspecified; I25.10 Atherosclerotic heart disease of native coronary artery without angina pectoris; E87.5 Hyperkalemia; G47.33 Obstructive sleep apnea (adult) (pediatric); F50.81 Binge eating disorder; K59.00 Constipation, unspecified; E55.9 Vitamin D deficiency, unspecified; F32.9 Major depressive disorder, single episode, unspecified; R31.29 Other microscopic hematuria; R09.02 Hypoxemia; Y95 Nosocomial condition; E83.39 Other disorders of phosphorus metabolism; G89.29 Other chronic pain; L27.0 Generalized skin eruption due to drugs and medicaments taken internally; T36.1X5A Adverse effect of cephalosporins and other beta-lactam antibiotics, initial encounter; G54.6 Phantom limb syndrome with pain; Z79.4 Long term (current) use of insulin; Z86.718 Personal history of other venous thrombosis and embolism; Z86.711 Personal history of pulmonary embolism